=== PATIENT | female | born 1955 | race Caucasian/White ===

== ENCOUNTER 2021-06-29 09:06 | Outpatient (REF) | payer OTHER, SELFPAY ==
--- NOTE | ~2021-06-29 | US_ITS ---
EXAMINATION: US RETROPERITONEAL LIMITED (RENAL ONLY) CLINICAL INFORMATION: Calculus of kidney. COMPARISON: None. TECHNIQUE: Real-time imaging of the kidneys. FINDINGS: RIGHT KIDNEY: 11.1 x 5.1 x 5.9 cm (SAG x AP x TRV). The kidney is normal in size, contour, and echogenicity. Renal cortical thickness is normal. No calculi or focal parenchymal lesions. No hydronephrosis. Mid pole cyst with internal echoes measuring 2.1 x 1.2 x 2.1 cm, which may represent a complex cyst. LEFT KIDNEY: 11.5 x 5.6 x 5.2 cm (SAG x AP x TRV). The kidney is normal in size, contour, and echogenicity. Renal cortical thickness is normal. No calculi or focal parenchymal lesions. No hydronephrosis. Exophytic midpole cyst with internal echoes measuring 1.6 x 1.6 x 1.5 cm, which may represent a complex cyst. US/US renal BI IMPRESSION: Probable complex bilateral renal cysts measuring 2.1 cm on the right and 1.6 cm on the left. No hydronephrosis or nephrolithiasis.
== END 2021-06-29 09:07 | disposition home or self-care (01) ==
LOC: HO.US 09:06
PROVIDERS: PCP Internal Medicine
DX: N20.0 Calculus of kidney (principal)
CPT/HCPCS: 76775

== ENCOUNTER → 2021-08-24 08:35 | Outpatient (BNVA) | payer OTHER, SELFPAY | PROVIDERS: PCP Internal Medicine ==

== ENCOUNTER 2022-08-12 09:23 | Outpatient (REF) | payer MEDICARE, OTHER, SELFPAY ==
[2022-08-12 10:38] LABS: Blood Urea Nitrogen 19 mg/dL (9-16); Estimated Glomerular Filt Rate 59
== END 2022-08-12 09:24 | disposition home or self-care (01) ==
LOC: HO.LAB 09:23
PROVIDERS: PCP Internal Medicine; Visit Provider Urology
DX: N28.1 Cyst of kidney, acquired (principal)
CPT/HCPCS: 36415; 82565; 84520

== ENCOUNTER 2022-08-14 07:56 | Outpatient (REF) | payer MEDICARE, OTHER, SELFPAY ==
--- NOTE | ~2022-08-14 | CT_ITS ---
EXAMINATION: CT ABDOMEN WITHOUT AND WITH CONTRAST CLINICAL INFORMATION: Kidney cyst. COMPARISON: Renal ultrasound June 2021. TECHNIQUE: Contiguous axial thin section helical images of the abdomen were performed before and after the administration of oral contrast and 75 mL of Omnipaque 350 intravenous contrast. The data set was reformatted in the coronal and sagittal planes and reviewed on an independent workstation. This CT examination was performed using dose optimization techniques as appropriate, variously including the following: *Automated exposure control *Adjustment of mA and/or kV according to patient size (this includes techniques or standardized protocols for targeted exams where dose is matched to indication/reason for exam; i.e. extremities or head) *Use of iterative reconstruction technique DLP: 1062 mGy-cm. FINDINGS: LUNG BASES: Normal. LIVER, GALLBLADDER, AND BILIARY TREE: Normal. PANCREAS: Normal. SPLEEN: Normal. ADRENAL GLANDS AND KIDNEYS: There is a 1.4 x 1.9 cm cyst in the lower pole of the right kidney. Hounsfield units precontrast measure 5. Hounsfield units postcontrast measure 8 without evidence of appreciable enhancement. This is consistent with a simple Bosniak type I cyst. There is a 6 mm cyst in the lower pole of the right kidney. This is difficult to appreciate precontrast. Hounsfield units post-IV contrast measure 4 suggestive of a simple Bosniak type I cyst. There is a 8 mm cyst in the lower pole of the left kidney. This is not well appreciated precontrast. Hounsfield units postcontrast measure 6 also suggestive of a Bosniak type I simple cyst. The kidneys are otherwise normal. The adrenal glands are normal. BOWEL LOOPS: Normal. LYMPH NODES: There are no enlarged lymph nodes. There is shotty small bowel mesentery lymphadenopathy and mild increased attenuation of the mesenteric fat. No ascites. VASCULAR: Unremarkable. BONES: Degenerative disc disease at L2-L3. CT/CT abdomen wo/w IV con IMPRESSION: Bilateral renal simple cysts, two on the right and one on the left. Mild inflammatory changes in the small bowel mesentery with shotty small bowel mesentery lymphadenopathy and fat stranding. Fleischner guidelines were followed.
[2022-08-14] MEDS: iohexoL 350 MG/ML 75 ML INFUS..BTL IV (08:35)
== END 2022-08-14 07:57 | disposition home or self-care (01) ==
LOC: HO.CT 07:56
PROVIDERS: PCP Internal Medicine
DX: N28.1 Cyst of kidney, acquired (principal)
CPT/HCPCS: 74170; Q9967

== ENCOUNTER 2023-08-13 09:51 | Outpatient (REF) | payer MEDICARE, OTHER, SELFPAY ==
--- NOTE | ~2023-08-13 | US_ITS ---
EXAMINATION: US RETROPERITONEAL LIMITED (RENAL ONLY) CLINICAL INFORMATION: Cyst of kidney, acquired. COMPARISON: CT abdomen without and with contrast 08/14/2022. Ultrasound retroperitoneal limited (renal only) 06/29/2021. TECHNIQUE: Real-time imaging of the kidneys. Technically limited study secondary to body habitus. FINDINGS: RIGHT KIDNEY: 11.4 x 4.9 x 5.7 cm (SAG x AP x TRV). The kidney is normal in size, contour, and echogenicity. Renal cortical thickness is normal. No renal calculi or hydronephrosis. 2.1 cm simple cyst in the mid kidney. 1.1 cm simple cyst in the lower pole. No follow-up imaging is recommended. LEFT KIDNEY: 12.0 x 5.0 x 5.2 cm (SAG x AP x TRV). The kidney is normal in size, contour, and echogenicity. Renal cortical thickness is normal. No renal calculi or hydronephrosis. 0.8 cm simple cyst in the mid kidney. No follow-up imaging is recommended. US/US renal BI IMPRESSION: Stable bilateral benign renal cysts. No follow-up imaging is recommended.
== END 2023-08-13 09:52 | disposition home or self-care (01) ==
LOC: HO.HMGCX 09:51
PROVIDERS: PCP Internal Medicine; Visit Provider Urology
DX: N28.1 Cyst of kidney, acquired (principal)
CPT/HCPCS: 76775

== ENCOUNTER 2023-09-28 09:26 | Outpatient (AMB) | payer MEDICARE, OTHER, SELFPAY ==
--- NOTE | 2023-09-28 09:28 | MHC.OFFVIS ---
Intake Intake Visit Reasons: 1 yr kidney cysts follow up with US(set) Intake Note: Patient is present for ultrasound follow up renal cyst Urology Medications: none Blood Thinner: Xarelto Vendor Management Consultant Required: No Accompanied by: Self / Same As Patient Allergies No Known Allergies Allergy (Verified 09/28/23 21:23) Medication List - Last Reconciled 09/28/23 by AV Frazier carvedilol 25 mg PO BID estradiol 0.01%(0.1mg/gram) (Estrace) 1 g vaginal 3XW 30 days furosemide 20 mg PO DAILY rivaroxaban (Xarelto) 20 mg PO DAILY rosuvastatin 10 mg PO BEDTIME HPI HPI Comments History of Present Illness Details Poornima is a very pleasant 68-year-old female patient. She presents to the office for follow-up of her recurrent UTIs and renal cyst. In discussion with the patient today she reports to be doing and feeling well. Recent renal imaging results reviewed with the patient today. Right kidney with no calculi or hydronephrosis. 2.1 cm simple cyst in the mid kidney. 1.1 cm simple cyst in the lower pole. No follow-up imaging is recommended per radiology report. Left kidney with no calculi or hydronephrosis. 0.8 cm simple cyst in the mid kidney. No follow-up imaging is recommended per radiology report. She denies having had any UTIs or UTI like symptoms since her last office visit here. She does report urinary frequency and urgency with episodes of incontinence if not near a bathroom however she discusses these episodes to happen soon after taking her lasixs. She otherwise denies nocturia, hematuria, dysuria, foul smelling urine, changes to urinary stream, flank pain, fever, and or chills. She is happy with her current voiding parameters. In office urinalysis results reviewed with the patient today. [facility] Medical History (Updated 09/28/23 @ 21:39 by AV Frazier) Recurrent UTI Acute cystitis with hematuria Renal cyst, acquired Surgical History History of surgery Review of Systems Const All systems reviewed & are unremarkable except as noted in HPI and below Physical Exam Const General: cooperative, healthy appearing, comfortable, no acute distress, well developed, alert and awake Nutritional Appearance: overweight Orientation/consciousness: patient oriented x3 Limitations: no limitations HEENT Head: Yes normal to inspection, Yes normocephalic and Yes atraumatic Ears: hearing grossly normal bilaterally Eyes General: appearance normal, both eyes and all related structures Neck Neck: Yes normal visual inspection and Yes trachea midline Chest Chest palpation & inspection: normal inspection of the chest Resp Effort & Inspection: normal respiratory effort and able to speak in complete sentences Cardio Rate: regular rate GI Inspection: Yes normal to inspection General: Yes no CVA tenderness Back/Spine/Pelvis Back: no CVA tenderness Skin General skin exam: no rashes or lesions noted Neuro General: patient oriented x3 Extrem General: Yes normal to inspection Psych Appearance: grossly normal and well kempt Mental Status: mental status grossly normal Speech and movement: Normal speech and movement present and Clear speech present Affect: normal affect Attitude: cooperative Thought process: Normal thought process present Thought content: Normal thought content present Insight: Fair insight present (Psych) Judgement: Fair judgement present (Psych) Results AMB Urinalysis, Automated UA Leukoctes 0 Manuel/uL Last Edit by [employer] on 09/28/23 10:15 UA Nitrite Negative Last Edit by [employer] on 09/28/23 10:15 UA Urobilinogen 0.2 mg/dL Last Edit by [employer] on 09/28/23 10:15 UA Protein 0 mg/dL Last Edit by [employer] on 09/28/23 10:15 UA pH 6.0 Last Edit by [employer] on 09/28/23 10:15 UA Blood 0 Reagan/uL Last Edit by [employer] on 09/28/23 10:15 UA Specific [place] 1.010 Last Edit by [employer] on 09/28/23 10:15 UA Ketone Negative Last Edit by [employer] on 09/28/23 10:15 UA Bilirubin 0 mg/dL Last Edit by [employer] on 09/28/23 10:15 UA Glucose 0 mg/dL Last Edit by [employer] on 09/28/23 10:15 Results Reviewed Results Reviewed: Laboratory Last Values Urine pH (Auto) 6.0 09/28/23 10:12 Specific [place] (Auto) 1.010 09/28/23 10:12 Urine Protein (Auto) 0 mg/dL 09/28/23 10:12 Glucose (UA)(Auto) 0 mg/dL 09/28/23 10:12 Urine Ketones (Auto) Negative 09/28/23 10:12 Urine Blood (Auto) 0 Reagan/uL 09/28/23 10:12 Urine Nitrite (Auto) Negative 09/28/23 10:12 Urine Bilirubin (Auto) 0 mg/dL 09/28/23 10:12 Urine Urobilinogen (Auto) 0.2 mg/dL 09/28/23 10:12 Leukocyte Esterase (Auto) 0 Manuel/uL 09/28/23 10:12 Date of Service: 08/13/23 EXAMINATION: US RETROPERITONEAL LIMITED (RENAL ONLY) FINDINGS: RIGHT KIDNEY: 11.4 x 4.9 x 5.7 cm (SAG x AP x TRV). The kidney is normal in size, contour, and echogenicity. Renal cortical thickness is normal. No renal calculi or hydronephrosis. 2.1 cm simple cyst in the mid kidney. 1.1 cm simple cyst in the lower pole. No follow-up imaging is recommended. LEFT KIDNEY: 12.0 x 5.0 x 5.2 cm (SAG x AP x TRV). The kidney is normal in size, contour, and echogenicity. Renal cortical thickness is normal. No renal calculi or hydronephrosis. 0.8 cm simple cyst in the mid kidney. No follow-up imaging is recommended. IMPRESSION: Stable bilateral benign renal cysts. No follow-up imaging is recommended. Assessment & Plan Assessment & Plan (1) Renal cyst, acquired: Code(s): N28.1 - Cyst of kidney, acquired (2) Recurrent UTI: Code(s): N39.0 - Urinary tract infection, site not specified Plan In office urinalysis results reviewed with the patient today; as noted above. Recent renal imaging results reviewed with the patient today; as noted above. Patient denies any bothersome urinary issues at this time. Patient reports be happy with current voiding parameters. Discussed at length pelvic floor therapy exercises as well as vaginal weights; information provided. Start Estrace cream as discussed and prescribed. Discussed, stress, and encouraged on the importance of drinking plenty of water daily. Renal ultrasound in 1 year. Follow-up in 1 year with imaging to be completed prior; or sooner with any issues, concerns, and or questions. Orders: Orders AMB Urinalysis Automated Today Z13.9 - Encounter for screening, unspecified US renal BI 364 Days N28.1 - Cyst of kidney, acquired Medications: New estradiol 0.01%(0.1mg/gram) (Estrace) 1 g vaginal 3XW 30 days 42.5 grams 3RF Patient Instructions: The patient had an opportunity to ask questions regarding the treatment plan. All questions were answered. Physical exam, labs, and imaging were discussed and reviewed in detail. As well as risks, benefits, and discussion of treatment choices. No major barriers to understanding were identified. The patient expressed understanding and agreement with the above treatment plan. The patient was made aware they should contact our office by phone for worsening of their current condition, the appearance of new symptoms, or with any questions or concerns. Compliance is encouraged with any medications and follow up testing that is ordered. It is a privilege to be allowed the opportunity to participate in? your urological care.? Again, if you have any questions or concerns If you have any questions or concerns please do not hesitate to contact me. The office is [phone]. This note is constructed using voice recognition software. While every effort has been made to ensure accuracy lap cutter truer operator errors may have been included. Yours sincerely, AV Frazier Coding Level of Care Code Est Pt Level 4 (01593) Diagnoses Renal cyst, acquired N28.1 Recurrent UTI N39.0
== END 2023-09-28 10:50 | disposition home or self-care (01) ==
PROVIDERS: Visit Provider Nurse Practitioner Family
DX: N28.1 Cyst of kidney, acquired (principal); N39.0 Urinary tract infection, site not specified
CPT/HCPCS: 99214

== ENCOUNTER → 2023-09-28 09:26 | Outpatient (BNVA) | payer MEDICARE, OTHER, SELFPAY | PROVIDERS: Visit Provider Nurse Practitioner Family | DX: N28.1 Cyst of kidney, acquired (principal); N39.0 Urinary tract infection, site not specified | CPT/HCPCS: 81003; 99212 ==

== ENCOUNTER 2024-09-15 08:53 | Outpatient (REF) | payer MEDICARE, OTHER, SELFPAY ==
--- NOTE | ~2024-09-15 | US_ITS ---
EXAMINATION: US RETROPERITONEAL LIMITED (RENAL ONLY) CLINICAL INFORMATION: Cyst of kidney, acquired. COMPARISON: Ultrasound renal ON 08/13/2023 and 06/29/2021. Correlated to CT abdomen 08/14/2022. TECHNIQUE: Real-time imaging of the kidneys using grayscale and color Doppler technique. FINDINGS: Submitted for interpretation on October 23, 2024. RIGHT KIDNEY: 11 x 5 x 5 cm (SAG x AP x TRV). Volume is 145 cc. The kidney is normal in size, contour, and echogenicity. Renal cortical thickness is normal. No renal calculi or hydronephrosis. There is a 1 cm and a 2 cm hypoechoic lesions in the midportion and lower pole without flow on color Doppler interrogation. There is flow on color Doppler interrogation of the renal hilum with an extrarenal pelvis. LEFT KIDNEY: 12 x 5 x 5 cm (SAG x AP x TRV). Volume is 149 cc. The kidney is normal in size, contour, and echogenicity. Renal cortical thickness is normal. No renal calculi or hydronephrosis. There is a 0.6 cm anechoic lesion with a focal hyperechoic area in the lower pole without flow on color Doppler interrogation. There is flow on color Doppler interrogation of the renal hilum IMPRESSION: No hydronephrosis. Hypoechoic lesions in the right kidney no fully evaluated. Partially calcified cystic lesion, left kidney. Please refer to the previous CT dated August 14, 2022.. Electronically signed by: Luis Pollard MD 10/23/2024 12:27 PM [facility]
== END 2024-09-15 08:54 | disposition home or self-care (01) ==
LOC: HO.US 08:53
PROVIDERS: PCP Internal Medicine; Visit Provider Nurse Practitioner Family
DX: N28.1 Cyst of kidney, acquired (principal)
CPT/HCPCS: 76775

== ENCOUNTER → 2024-09-15 08:55 | Outpatient (BNV) | payer MEDICARE, OTHER, SELFPAY | PROVIDERS: PCP Internal Medicine; Visit Provider Radiology Diagnostic Radiology | DX: N28.1 Cyst of kidney, acquired (principal) | CPT/HCPCS: 76775 ==

== ENCOUNTER 2024-09-29 08:30 | Outpatient (AMB) | payer MEDICARE, OTHER, SELFPAY ==
--- NOTE | 2024-09-29 08:36 | A.OFFVIS_ITS ---
Intake Visit Reasons: 1y/US(set) Intake Note: Patient presents today for follow up on renal cyst and ultrasound results Imaging completed: 09/15/24 Urology Medications: none Blood Thinner: Xarelto Engineer Station Mainline Required: No Accompanied by: Self / Same As Patient Allergies No Known Allergies Allergy (Verified 09/29/24 21:40) Medication List - Last Reconciled 09/29/24 by AV Frazier albuterol sulfate 90 mcg/actuation inhalation carvedilol 25 mg PO BID estradiol 0.01%(0.1mg/gram) (Estrace) 1 g vaginal 3XW 90 days fluticasone furoate 100 mcg/actuation (Arnuity Ellipta) 1 inh inhalation DAILY furosemide 20 mg PO DAILY rivaroxaban (Xarelto) 20 mg PO DAILY rosuvastatin 10 mg PO BEDTIME HPI Comments Details: Poornima is a very pleasant 69-year-old female patient. She presents to the office for follow-up of her recurrent UTIs and renal cyst. In discussion with the patient today she reports to be doing and feeling well. Recent renal imaging results reviewed with the patient today. Bilateral kidneys are normal in size, contour, and echogenicity. No hydronephrosis, lesions, or calculi noted bilaterally. Partially calcified cystic lesion of the left kidney measuring 6 mm. When compared to previous CT imaging 05/03 bilateral renal simple cyst 2 on the right and 1 on the left. She denies having had any UTI like sympto ms and or UTI since her last office visit here. She does report noting episodes of urinary urgency and frequency typically in the morning and believes this is related to her Lasixs. She does report urinary frequency and urgency with episodes of incontinence if not near a bathroom however she discusses these episodes to happen soon after taking her lasixs. We discussed further treatment options to include pelvic floor therapy verses in office urodynamics for further assessment evaluation. She otherwise denies nocturia, hematuria, dysuria, foul smelling urine, changes to urinary stream, flank pain, fever, and or chills. She is happy with her current voiding parameters. She reports at times she is noncompliant with Estrace cream however is enquiring a refill. In office urinalysis results reviewed with the patient today. She otherwise offers no other issues or concerns at this time. [facility] Medical History Recurrent UTI Acute cystitis with hematuria Renal cyst, acquired Surgical History History of surgery Review of Systems Const All systems reviewed & are unremarkable except as noted in HPI and below Physical Exam Const General: cooperative, healthy appearing, comfortable, no acute distress, well developed, alert and awake Nutritional Appearance: overweight Orientation/consciousness: patient oriented x3 Limitations: no limitations HEENT Head: Yes normal to inspection, Yes normocephalic and Yes atraumatic Ears: hearing grossly normal bilaterally Eyes General: appearance normal, both eyes and all related structures Neck Neck: Yes normal visual inspection and Yes trachea midline Chest Chest palpation & inspection: normal inspection of the chest Resp Effort & Inspection: normal respiratory effort and able to speak in complete sentences Cardio Rate: regular rate GI Inspection: Yes normal to inspection General: Yes no CVA tenderness Back/Spine/Pelvis Back: no CVA tenderness Skin General skin exam: no rashes or lesions noted Neuro General: patient oriented x3 Extrem General: Yes normal to inspection Psych Appearance: grossly normal and well kempt Mental Status: mental status grossly normal Speech and movement: Normal speech and movement present and Clear speech present Affect: normal affect Attitude: cooperative Thought process: Normal thought process present Thought content: Normal thought content present Insight: Fair insight present (Psych) Judgement: Fair judgement present (Psych) Results AMB Urinalysis, Automated UA Leukoctes Cancelled Manuel/uL Last Edit by Albertina Castorena on 09/29/24 10:26 UA Leukoctes previously reported as 0 Albertina Castorena 09/29/24 10:26 UA Nitrite Cancelled Last Edit by Albertina Castorena on 09/29/24 10:26 UA Urobilinogen Cancelled mg/dL Last Edit by Albertina Castorena on 09/29/24 10:2 6 UA Urobilinogen previously reported as 0.2 BrandNostoe Bre 09/29/24 10:26 UA Protein Cancelled mg/dL Last Edit by Lae Naralavon on 09/29/24 10:26 UA Protein previously reported as 0 Fitmoyce Bress 09/29/24 10:26 UA pH Cancelled Last Edit by Lae Naralavon on 09/29/24 10:26 UA pH previously reported as 6.0 AdStacke Bre 09/29/24 10:26 UA Blood Cancelled Reagan/uL Last Edit by Fitmomorenojaney Bainslavon on 09/29/24 10:26 UA Blood previously reported as 0 AdStacke Bre 09/29/24 10:26 UA Specific [place] Cancelled Last Edit by Fitmoshalonda Naralavon on 09/29/24 10:26 UA Specific [place] previously reported as 1.010 AdStacke oohilove 09/29/24 10:26 UA Ketone Cancelled Last Edit by Fitmoshalonda Naralavon on 09/29/24 10:26 UA Ketone previously reported as Negative AdStacke oohilove 09/29/24 10:26 UA Bilirubin Cancelled mg/dL Last Edit by Fitmoshalonda Naralavon on 09/29/24 10:26 UA Bilirubin previously reported as 0 AdStacke oohilove 09/29/24 10:26 UA Glucose Cancelled mg/dL Last Edit by AdStackjaney Naralavon on 09/29/24 10:26 UA Glucose previously reported as 0 AdStacke BreLogicLibrary 09/29/24 10:26 CANCELLED duplicate AMB Urinalysis, Automated UA Leukoctes 0 Manuel/uL Last Edit by Albertina Castorena on 09/29/24 09:27 UA Nitrite Last Edit by AdStackjaney Bainslavon on 09/29/24 09:27 UA Urobilinogen 0.2 mg/dL Last Edit by AdStacke Naralavon on 09/29/24 09:27 UA Protein 0 mg/dL Last Edit by AdStackjaney Bainslavon on 09/29/24 09:27 UA pH 6.0 Last Edit by Lajaney Bainslavon on 09/29/24 09:27 UA Blood 0 Reagan/uL Last Edit by AdStackjaney Castorena on 09/29/24 09:27 UA Specific [place] 1.010 Last Edit by Albertina Castorena on 09/29/24 09:27 UA Ketone Last Edit by Albertina Castorena on 09/29/24 09:27 UA Bilirubin 0 mg/dL Last Edit by Albertina Castorena on 09/29/24 09:27 UA Glucose 0 mg/dL Last Edit by Albertina Castorena on 09/29/24 09:27 Results Reviewed Results Reviewed: Laboratory Last Values Urine pH (Auto) 6.0 09/29/24 09:26 Specific [place] (Auto) 1.010 09/29/24 09:26 Urine Protein (Auto) 0 mg/dL 09/29/24 09:26 Glucose (UA)(Auto) 0 mg/dL 09/29/24 09:26 Urine Ketones (Auto) Cancelled 09/29/24 08:44 Urine Blood (Auto) 0 Reagan/uL 09/29/24 09:26 Urine Nitrite (Auto) Cancelled 09/29/24 08:44 Urine Bilirubin (Auto) 0 mg/dL 09/29/24 09:26 Urine Urobilinogen (Auto) 0.2 mg/dL 09/29/24 09:26 Leukocyte Esterase (Auto) 0 Manuel/uL 09/29/24 09:26 Date of Service: 09/15/24 EXAMINATION: US RETROPERITONEAL LIMITED (RENAL ONLY) FINDINGS: RIGHT KIDNEY: 11 x 5 x 5 cm (SAG x AP x TRV). Volume is 145 cc. The kidney is normal in size, contour, and echogenicity. Renal cortical thickness is normal. No renal calculi or hydronephrosis. There is a 1 cm and a 2 cm hypoechoic lesions in the midportion and lower pole without flow on color Doppler interrogation. There is flow on color Doppler interrogation of the renal hilum with an extrarenal pelvis. LEFT KIDNEY: 12 x 5 x 5 cm (SAG x AP x TRV). Volume is 149 cc. The kidney is normal in size, contour, and echogenicity. Renal cortical thickness is normal. No renal calculi or hydronephrosis. There is a 0.6 cm anechoic lesion with a focal hyperechoic area in the lower pole without flow on color Doppler interrogation. There is flow on color Doppler interrogation of the renal hilum IMPRESSION: No hydronephrosis. Hypoechoic lesions in the right kidney no fully evaluated. Partially calcified cystic lesion, left kidney. Please refer to the previous CT dated August 14, 2022. Assessment & Plan Assessment & Plan (1) Recurrent UTI: Code(s): N39.0 - Urinary tract infection, site not specified Category: Medical (2) Renal cyst, acquired: Code(s): N28.1 - Cyst of kidney, acquired Category: Medical Plan In office urinalysis results reviewed with the patient today; as noted above. Recent renal imaging results reviewed with the patient today; as noted above. Patient denies any bothersome urinary issues at this time. Patient reports be happy with current voiding parameters. Discussed at length pelvic floor therapy exercises as well as vaginal weights; information provided. Start/continue Estrace cream as discussed and prescribed; refill provided Discussed, stress, and encouraged on the importance of drinking plenty of water daily. Renal ultrasound in 1 year. Follow-up in 1 year with imaging to be completed prior; or sooner with any issues, concerns, and or questions. Orders: Orders AMB Urinalysis Automated 09/29/24 Z13.9 - Encounter for screening, unspecified US renal BI 1 Year N20.0 - Calculus of kidney Medications: Changed From estradiol 0.01%(0.1mg/gram) 1 g vaginal 3XW 30 days 42.5 grams 3RF To estradiol 0.01%(0.1mg/gram) (Estrace) Apply pea-sized amount to urethra 3 times per week 1 g vaginal 3XW 42.5 grams 3RF 90 days Patient Instructions: The patient had an opportunity to ask questions regarding the treatment plan. All questions were answered. Physical exam, labs, and imaging were discussed and reviewed in detail. As well as risks, benefits, and discussion of treatment choices. No major barriers to understanding were identified. The patient expressed understanding and agreement with the above treatment plan. The patient was made aware they should contact our office by phone for worsening of their current condition, the appearance of new symptoms, or with any questions or concerns. Compliance is encouraged with any medications and follow up testing that is ordered. It is a privilege to be allowed the opportunity to participate in? your urological care.? Again, if you have any questions or concerns If you have any questions or concerns please do not hesitate to contact me. The office is [phone]. This note is constructed using voice recognition software. While every effort has been made to ensure accuracy director of rotc errors may have been included. Yours sincerely, Autumn Schneider, HOME HOSPICE AIDE-BC Coding Level of Care Code Est Pt Level 3 (49624) Complex EM visit Add On G2211 Diagnoses Recurrent UTI N39.0 Renal cyst, acquired N28.1
== END 2024-09-29 09:10 | disposition home or self-care (01) ==
PROVIDERS: PCP Internal Medicine; Visit Provider Nurse Practitioner Family
DX: N39.0 Urinary tract infection, site not specified (principal); N28.1 Cyst of kidney, acquired
CPT/HCPCS: 99213; G2211

== ENCOUNTER → 2024-09-29 08:30 | Outpatient (BNVA) | payer MEDICARE, OTHER, SELFPAY | PROVIDERS: PCP Internal Medicine; Visit Provider Nurse Practitioner Family | DX: N28.1 Cyst of kidney, acquired (principal); N39.0 Urinary tract infection, site not specified; N20.0 Calculus of kidney | CPT/HCPCS: 81003; 99212 ==

== ENCOUNTER 2025-09-15 09:18 | Outpatient (REF) | payer MEDICARE, OTHER, SELFPAY ==
--- OUTSIDE RECORDS SUMMARY | 2025-08-23 15:37 | XMS_ITS ---
Author Organization [facility] Address [address], [place] [id number] Care Team Providers Care Care Coordination Manager Name Role Phone ROSETTA MCCALL Primary Care Provider REASON FOR VISIT hearing loss Encounters Encounter Location Date Provider Diagnosis [facility] [address] [place] [address] 08/23/2025 ROSETTA MCCALL PLAN OF TREATMENT Next Appt Details Provider Name:ROSETTA BRAMBILA, 03/09/2026 02:30:00 PM, [address] [place], [address],
--- OUTSIDE RECORDS SUMMARY | 2025-08-24 07:30 | XMS_ITS ---
Author Organization [facility] Address [address] [place], [place] [id number] Care Team Providers Care Internet Technology Manager Name Role Phone ROSETTA MCCALL Primary Care Provider [phone] ALLERGIES Allergen (clinical drug ingredient) Drug/Non Drug Allergy documented on EMR Reaction Allergy Type Onset Date Status CATS, TREES (uncoded) Unknown Allergy Active REASON FOR REFERRAL Reason 08/25/25 w appt Refe rral to [facility] of [facility] acute right-sided hearing loss Diagnosis 1 Unspecified hearing loss (H91.90) Referral Organization [facility] Referring Provider First Name ROSETTA Referring Provider Last Name STEFANY Referring Provider Speciality Internal M edicine Referred Organization [facility] (1) Referred Address [address], [place],[address], Referred Provider Specialty Otology, Lar yngology, Rhinology General Notes Anna HUNT Admin 12:03:42 PM > faxed medical referral, note and most recent labs to [facility] at [phone] requesting an URGENT visit please>no referral required Referral Priority Urgent REASON FOR VISIT 42/severe hearing loss MEDICATIONS Medication SIG (Take, Route, Frequency, Duration) Notes Start Date End Date Status Eliquis 5 MG 1 tablet Orally Twic e a day for 30 day(s) Active Albuterol Sulfate HFA 108 (90 Base) MCG/ACT 1 puff as needed Inhalation every 4 hrs Active Therapeutic Multivit/Mineral - 1 tab(s) orally once daily-Maintnenence for 30 day(s) Active Rosuvastatin Calcium 10 MG TAKE 1 TABLET BY MOUTH EVERY DAY for 90 Active Arnuity Ellipta 100 MCG/ACT 1 puff Inhal ation Once a day Active Fluticasone Propionate 50 MCG/ACT 1 spray in each nostril Nasally Twice a day for 30 days Active Furosemide 20 MG TAKE 1 TABLET BY DENVER TH DAILY NEEDED FOR SWELLING for 90 Active Amoxicillin 500 MG 4 capsule Orally one hour before procedure for 1 days 04/21/2025 Active Carvedilol 25 MG 1 tablet with food O rally Twice a day Active SOCIAL HISTORY Tobacco Use: Social History Observation Description Date Details (start date - stop date) Never Smoker NA - NA Sex Assigned At : Social History Observation Description Sex Assigned At Unknown Smoking Question Answer Notes Are you a: never smoker PROBLEMS Problem Type ICD Code Onset Dates Problem Status W/U Status Risk SNOMED Code Notes Problem Unspecified hearing loss (H91.90) Active confirmed 79328961 VITAL SIGNS Blood pressure systolic 126 mm Hg 08/24/20 25 Blood pressure diastolic 89 mm Hg 025 Height 64 in 08/24/2025 Weight 290 lbs 08/24/2025 BMI 49.77 kg/m2 08/24/2025 Encounters Encounter Location Date Provider Diagnosis [facility] [address] [place] [address] 08/24/2025 ROSETTA MCCALL Unspecified hearing loss H91.90 ; Essential (primary) hypertension I10 ; Disorder of lipoprotein metabolism, unspecified E78.9 ; Type 2 diabetes mellitus without complications E11.9 ; Gastro-esophageal reflux disease without esophagitis K21.9 ; Atrial fibrillation, unspecified type I48.91 and Other asthma J45.998 ASSESSMENTS Encounter Date Diagnosis Assessment Notes Treatment Notes Treatment Clinical Notes Section Notes 08/24/2025 Unspecified hearing loss (ICD-10 - H91.90) Physical exam symptoms will check a CT scan with attention to the internal auditory canal. Will check a CBC with a differential Lyme titer sed rate etc. Consultation ear nose and throat. Add prednisone 40 mg a day for 5 days and a Z-Omar. 08/24/2025 Essential (primary) hypertension (ICD-10 - I10) Recheck blood pressure stable mildly elevated will follow-up 2 weeks recommend weight loss exercise no added salt diet 08/24/2025 Disorder of lipoprotein metabolism, unspecified (ICD-10 - E78.9) Stable recheck every 6 months diet exercise weight loss recommended 08/24/2025 Type 2 diabetes mellitus without complications (ICD-10 - E11.9) Check A1c diet weight loss exercise question Rigoberto will discuss at next visit 08/24/2025 Gastro-esophageal reflux disease without esophagitis (ICD-10 - K21.9) Stable dietary recommendations discussed head of bed elevation as needed PPI 08/24/2025 Atrial fibrillation, unspecified type (ICD-10 - I48.91) Follow-up with [facility] cardiology in normal sinus rhythm at the present time Watchman procedure has been discussed she is thinking about it 08/24/2025 Other asthma (ICD-10 - J45.998) PLAN OF TREATMENT Treatment Notes Assessment Notes Unspecified hearing loss Physical exam s ymptoms will check a CT scan with attention to the internal auditory canal. Will check a CBC with a differential Lyme titer sed rate etc. Consultation ear nose and throat. Add prednisone 40 mg a day for 5 days and a Z-Omar. Essential (primary) hypertension Recheck blood pressure stable mildly elevated will follow-up 2 weeks recommend weight loss exercise no added salt diet Disorder of lipoprotein meta bolism, unspecified Stable recheck every 6 months diet exerc ise weight loss recommended Type 2 diabetes mellitus wit hout complications Check A1c diet weight loss exercise question Rigoberto will discuss at next visit Gastro-esophageal reflux dis ease without esophagitis Stable dietary recommendations discussed head of bed elevation as needed PPI Atrial fibrillation, unspecified type Fo llow-up with [facility] in normal sinus rhythm at the present time Watchman procedure has been discussed she is thinking about it Pending Test Test Name Order Date CT Head (Brain) without IV contrast 08/12 Referrals Referral Date Details 08/25/25 w appt Refe rral to [facility] acute right-sided hearing loss, [address], [place], [address], Next Appt Details Follow Up: Keep scheduled OB follow-up. Labs pending, Reason: Provider Name:ROSETTA BRAMBILA, 03/09/2026 02:30:00 PM, [address] [place], [address], Progress Notes * Examination Category Sub-Category Detail Notes Category Not es General Examination HEENT: Conjunctiva pink anicteric mucous membranes moist oropharynx clear EACs are clear TMs are clear sinuses clear Jacob negative hearing diminished on right side to whispered sounds Neck: supple, no lymphaden opathy, no thyromegaly, no carotid bruit Heart: RRR, no murmurs, cli cks or rubs Lungs: clear to auscultatio n General Appearance Pleasant white femal e appearing stated age moderately overweight no apparent distress History and Physical Notes * HPI (History of Present Illness) Category Sub-Category Detail Notes Category Not es General Hearing loss. S ymptoms started approximate 48 hours ago right ear. Awoke with pretty significant tinnitus. No significant pain per se. Nothing on the left side. No fever chills or sweats she has been battling cold over the last month. No shortness of breath no significant chest pain some mild congestion with phlegm. No sinus pain no visual changes etc. little bit of tinnitus. She woke up this morning it seemed to be improving a little bit was wondering whether she had a another viral infection Consultation Request Notes Referral Date Referring Provider Referred Provider Not es 08/24/2025 ROSETTA MCCALL , 08/25/25 w a ppt Referral to [facility] of [facility] acute right-sided hearing loss
--- OUTSIDE RECORDS SUMMARY | 2025-08-24 08:52 | XMS_ITS ---
Author Organization [facility] Address [address] [place], [place] [id number] Care Team Providers Care Help Desk Associate Name Role Phone ROSETTA MCCALL Primary Care Provider REASON FOR VISIT New Referral Request Encounters Encounter Location Date Provider Diagnosis [facility] [address] [place] [address] 08/24/2025 ROSETTA MCCALL PLAN OF TREATMENT Next Appt Details Provider Name:ROSETTA BRAMBILA, 03/09/2026 02:30:00 PM, [address] [place], [address],
--- OUTSIDE RECORDS SUMMARY | 2025-08-24 08:59 | XMS_ITS ---
Author Organization [facility] Address [address] [place], [place] [id number] Care Team Providers Care Head Bellhop Captain Name Role Phone ROSETTA MCCALL Primary Care Provider [phone] REASON FOR VISIT antibiotics MEDICATIONS Medication SIG (Take, Route, Fr equency, Duration) Notes Start Date End Date Status Zithromax Z-Omar 250 MG Therapy Pack Oral ly 2 tabs Day 1, then 1 tab daily x 4 days for 5 days 08/24/2025 Active predniSONE 10 MG 4 tablets Orally Onc e a day for 2 days, then 3 tabs once a day for 2 days, then 2 tabs once a day for 2 days, then 1 tab once a day for 2 days for 5 day(s) 08/24/2025 Active Encounters Encounter Location Date Provider Diagnosis [address] [address] 08/24/2025 ROSETTA MCCALL PLAN OF TREATMENT Medication Medication Name Sig Start Date Stop Date Notes Zithromax Z-Omar 250 MG Therapy Pack Oral ly 2 tabs Day 1, then 1 tab daily x 4 days for 5 days 08/24/2025 predniSONE 10 MG 4 tablets Orally Onc e a day for 2 days, then 3 tabs once a day for 2 days, then 2 tabs once a day for 2 days, then 1 tab once a day for 2 days for 5 day(s) 08/24/2025 Next Appt Details Provider Name:ROSETTA BRAMBILA, 03/09/2026 02:30:00 PM, [address] [place], [address],
--- OUTSIDE RECORDS SUMMARY | 2025-08-25 10:42 | XMS_ITS ---
Author Organization [facility] Address [address] [place], [place] [id number] Care Team Providers Care Senior Net Software Developer Name Role Phone ROSETTA MCCALL Primary Care Provider REASON FOR VISIT fax new Head CT order Encounters Encounter Location Date Provider Diagnosis [facility] [address] [place] [address] 08/25/2025 ROSETTA MCCALL PLAN OF TREATMENT Next Appt Details Provider Name:ROSETTA BRAMBILA, 03/09/2026 02:30:00 PM, [address] [place], [address],
--- OUTSIDE RECORDS SUMMARY | 2025-08-26 03:10 | XMS_ITS ---
Author Organization [facility] Address [address] [place], [place] [id number] Care Team Providers Care Pain Management Nurse Practitioner Name Role Phone ROSETTA MCCALL Primary Care Provider RESULTS Component Value Reference Range Notes CT Temporal Bones without co ntrast, Bilateral Reviewed date:08/28/2025 03:46:06 PM Interpretation: Performing Lab: Notes/Report: REASON FOR VISIT CT order RICKY Encounters Encounter Location Date Provider Diagnosis [address] [address] 08/26/2025 ROSETTA MCCALL Hearing loss, unspecified hearing loss type, unspecified laterality H91.90 ASSESSMENTS Encounter Date Diagnosis Assessment Notes Treatment Notes Treatment Clinical Notes Section Notes 08/26/2025 Hearing loss, unspecified hearing loss type, unspecified laterality (ICD-10 - H91.90) PLAN OF TREATMENT Next Appt Details Provider Name:ROSETTA BRAMBILA, 03/09/2026 02:30:00 PM, [address] [place] [address], [address],
--- OUTSIDE RECORDS SUMMARY | 2025-08-28 10:45 | XMS_ITS ---
Author Organization [facility] Address [address] [place], [place] [phone] Care Team Providers Care Bookkeeping Manager Name Role Phone ROSETTA MCCALL Primary Care Provider REASON FOR VISIT cat scan Encounters Encounter Location Date Provider Diagnosis [facility] [address] [place] [address] 08/28/2025 ROSETTA MCCALL PLAN OF TREATMENT Next Appt Details Provider Name:ROSETTA BRAMBILA, 03/09/2026 02:30:00 PM, [address] [place], [address],
--- OUTSIDE RECORDS SUMMARY | 2025-09-08 03:00 | XMS_ITS ---
Author Organization [facility] Address [address] [place], [place] [id number] Care Team Providers Care Logistics Coordinator Name Role Phone ROSETTA MCCALL Primary Care Provider [phone] ALLERGIES Allergen (clinical drug ingredient) Drug/Non Drug Allergy documented on EMR Reaction Allergy Type Onset Date Status CATS, TREES (uncoded) Unknown Allergy Active REASON FOR REFERRAL Reason [facility] hearing loss Diagnosis 1 Hearing loss, unspec ified hearing loss type, unspecified laterality (H91.90) Referral Organization [facility] Referring Provider First Name ROSETTA Referring Provider Last Name STEFANY Referring Provider Speciality Internal M edicine Referral Priority Routine REASON FOR VISIT 42 6mo F/U, would like flu vaccine MEDICATIONS Medication SIG (Take, Route, Frequency, Duration) Notes Start Date End Date Status Fluticasone Propionate 50 MCG/ACT 1 spray in each nostril Nasally Twice a day for 30 days Active Rosuvastatin Calcium 10 MG TAKE 1 TABLET BY MOUTH EVERY DAY for 90 Active Carvedilol 25 MG 1 tablet with food O rally Twice a day Active Albuterol Sulfate HFA 108 (90 Base) MCG/ACT 1 puff as needed Inhalation every 4 hrs Active Eliquis 5 MG 1 tablet Orally Tw a day for 30 day(s) Active Furosemide 20 MG TAKE 1 TABLET BY DEN[place] TH DAILY NEEDED FOR SWELLING for 90 Active Amoxicillin 500 MG 4 capsule Orally one hour before procedure for 1 days 04/21/2025 Active Therapeutic Multivit/Mineral - 1 tab(s) orally once daily-Maintnenence for 30 day(s) Active Arnuity Ellipta 100 MCG/ACT 1 puff Inhal ation Once a day Active SOCIAL HISTORY Tobacco Use: Social History Observation Description Date Details (start date - stop date) Never Smoker NA - NA Sex Assigned At : Social History Observation Description Sex Assigned At Unknown Smoking Question Answer Notes Are you a: never smoker PROBLEMS Problem Type ICD Code Onset Dates Problem Status W/U Status Risk SNOMED Code Notes Problem Sleep apnea (G47.30) Active confirmed Sleep apnea (95522749) VITAL SIGNS Blood pressure systolic 130 mm Hg 09/08/20 25 Blood pressure diastolic 85 mm Hg 025 Height 64 in 09/08/2025 Weight 292 lbs 09/08/2025 BMI 50.12 kg/m2 09/08/2025 Encounters Encounter Location Date Provider Diagnosis [facility] [address] [place] [address] 09/08/2025 ROSETTA MCCALL Essential (primary) hypertension I10 ; Disorder of lipoprotein metabolism, unspecified E78.9 ; Type 2 diabetes mellitus without complications E11.9 ; Gastro-esophageal reflux disease without esophagitis K21.9 ; Other asthma J45.998 ; Atrial fibrillation, unspecified type I48.91 ; Osteoporosis, unspecified osteoporosis type, unspecified pathological fracture presence M81.0 ; Aortic valve stenosis, etiology of cardiac valve disease unspecified I35.0 ; Sleep apnea 786.09 and Hearing loss, unspecified hearing loss type, unspecified laterality H91.90 ASSESSMENTS Encounter Date Diagnosis Assessment Notes Treatment Notes Treatment Clinical Notes Section Notes 09/08/2025 Essential (primary) hypertension (ICD-10 - I10) Blood pressure suboptimal control. Discussed with patient about adding a medicine like losartan or amlodipine. She would prefer to hold off on another med at this time. Told her that she needs to check her pressure at least twice a day over the next 2 weeks and get me back to results and I can decide whether based on that she needs to get a 24 blood pressure monitor or add this another medication 09/08/2025 Disorder of lipoprotein metabolism, unspecified (ICD-10 - E78.9) Continue statin therapy review of systems negative side effects increase diet increase weight loss exercise daily. Recheck in 6 months total cholesterol goals and 100 LDL less than 100 09/08/2025 Type 2 diabetes mellitus without complications (ICD-10 - E11.9) Patient with prediabetes. Follow-up A1c every 3 to 4 months ophthalmology q. year diet exercise weight maintenance hopefully will be getting GLP-1 for weight and prediabetes 09/08/2025 Gastro-esophageal reflux disease without esophagitis (ICD-10 - K21.9) Stable doing well dietary recommendations including minimizing alcohol caffeine peppermint spearmint chocolate citrus etc. 09/08/2025 Other asthma (ICD-10 - J45.998) Physical exam normal continue inhalers. Follow-up with pulmonary 09/08/2025 Atrial fibrillation, unspecified type (ICD-10 - I48.91) No symptoms. EKG sinus bradycardia declines Watchman procedure heart rate stable no CHF no chest pain 09/08/2025 Osteoporosis, unspecified osteoporosis type, unspecified pathological fracture presence (ICD-10 - M81.0) Calcium and vitamin D twice daily weightbearing exercise alcohol moderation of smoking she recheck bone density in 2 years 09/08/2025 Aortic valve stenosis, etiology of cardiac valve disease unspecified (ICD-10 - I35.0) Aortic stenosis recheck echo in 1 year instructed to call if any chest pain shortness of breath presyncope dizziness etc. 09/08/2025 Sleep apnea (ICD9-CM - 786.09) Patient on CPAP continue doing well 09/08/2025 Hearing loss, unspecified hearing loss type, unspecified laterality (ICD-10 - H91.90) Recommend ENT evaluation. Referral has already been placed patient did not hear back from them PLAN OF TREATMENT Treatment Notes Assessment Notes Essential (primary) hypertension Blood p ressure suboptimal control. Discussed with patient about adding a medicine like losartan or amlodipine. She would prefer to hold off on another med at this time. Told her that she needs to check her pressure at least twice a day over the next 2 weeks and get me back to results and I can decide whether based on that she needs to get a 24 blood pressure monitor or add this another medication Disorder of lipoprotein meta bolism, unspecified Continue statin therapy review of system s negative side effects increase diet increase weight loss exercise daily. Recheck in 6 months total cholesterol goals and 100 LDL less than 100 Type 2 diabetes mellitus wit hout complications Patient with prediabetes. Follow-up A1c every 3 to 4 months ophthalmology q. year diet exercise weight maintenance hopefully will be getting GLP-1 for weight and prediabetes Gastro-esophageal reflux dis ease without esophagitis Stable doing well dietary recommendation s including minimizing alcohol caffeine peppermint spearmint chocolate citrus etc. Other asthma Physical exam normal continue inhalers. Follow-up with pulmonary Atrial fibrillation, unspecified type No symptoms. EKG sinus bradycardia declines Watchman procedure heart rate stable no CHF no chest pain Osteoporosis, unspecified os teoporosis type, unspecified pathological fracture presence Calcium and vitamin D twice daily weightbearing exercise alcohol moderation of smoking she recheck bone density in 2 years Aortic valve stenosis, etiol bharti of cardiac valve disease unspecified Aortic stenosis recheck echo in 1 year instructed to call if any chest pain shortness of breath presyncope dizziness etc. Sleep apnea Patient on CPAP cont inue doing well Hearing loss, unspecified he aring loss type, unspecified laterality Recommend ENT evaluation. Referral has already been placed patient did not hear back from them Pending Test Test Name Order Date EKG 09/08/2025 Referrals Referral Date Details [facility] hearing loss Next Appt Details Follow Up: Follow-up 6 month s labs pending EKG today, Reason: Provider Name:ROSETTA BRAMBILA, 03/09/2026 02:30:00 PM, [address] [place], [address], Progress Notes * Examination Category Sub-Category Detail Notes Category Not es General Examination HEENT: Conjunctiva pink anicteric mucous membranes moist oropharynx clear TMs clear sinus. EACs clear Neck: Supple carotids 2+ n o bruits lymphadenopathy or thyromegaly Heart: Regular rate and rhy thm 1/6 systolic ejection murmur right upper sternal border Lungs: clear to auscultatio n Abdomen: soft, non tender/non distended, no rebound tenderness, no guarding or rigidity, no masses palpated, no hepatosplenomegaly, normal active bowel sounds Extremities: no clubbing , cyanos is, or edema, pulses 2 plus bilaterally General Appearance Pleasant white femal e appearing stated age moderately overweight no apparent distress Skin: normal, no rash, megan ign appearing moles Neuro alert and oriented x 3, CN 2-12 intact, motor 5/5 bilaterally proximally and distally in all 4 extremities, no focal abnormality Musculoskeletal Right left knee full range of motion no restricted movements hips full range of motion as well History and Physical Notes * HPI (History of Present Illness) Category Sub-Category Detail Notes Category Not es General Hyperlipidemia see review of systems below Consultation Request Notes Referral Date Referring Provider Referred Provider Not es 09/08/2025 ROSETTA MCCALL , [facility] hearing loss
--- OUTSIDE RECORDS SUMMARY | 2025-09-08 04:00 | XMS_ITS ---
Author Organization [facility] Address [address] [place], [place] [id number] Care Team Providers Care Primary School Teacher Librarian Name Role Phone ROSETTA MCCALL Primary Care Provider [place], NUR[facility] [phone] REASON FOR VISIT 42/ flu IMMUNIZATIONS Vaccine Route Administration Date Status Comme nts Influenza, Fluzone HD 65+ IM Intramuscular 09/08/2025 Admi nistered Encounters Encounter Location Date Provider Diagnosis [address] [address] 09/08/2025 NURSING [place] Encounter for immunization Z23 ASSESSMENTS Encounter Date Diagnosis Assessment Notes Treatment Notes Treatment Clinical Notes Section Notes 09/08/2025 Encounter for immunization (ICD-10 - Z23) HD Influenza vaccine administered. Patient counseled and VIS sheet given. PLAN OF TREATMENT Treatment Notes Assessment Notes Encounter for immunization HD Influenza vaccine administered. Patient counseled and VIS sheet given. Next Appt Details Follow Up: prn, Reason: Provider Name:ROSETTA BRAMBILA, 03/09/2026 02:30:00 PM, [address] [place], [address],
--- OUTSIDE RECORDS SUMMARY | 2025-09-09 01:32 | XMS_ITS ---
Author Organization [facility] Address [address] [place], [place] [id number] Care Team Providers Care Plant Associate Name Role Phone ROSETTA MCCALL Primary Care Provider [phone] REASON FOR VISIT (W)blood sugar Encounters Encounter Location Date Provider Diagnosis [facility] [address] [place] [address] 09/09/2025 ROSETTA MCCALL Type 2 diabetes mellitus without complications E11.9 ASSESSMENTS Encounter Date Diagnosis Assessment Notes Treatment Notes Treatment Clinical Notes Section Notes 09/09/2025 Type 2 diabetes mellitus without complications (ICD-10 - E11.9) PLAN OF TREATMENT Future Test Test Name Order Date Hemoglobin [id number] 12/10/2025 [id number] 12/10/2025 Next Appt Details Provider Name:ROSETTA BRAMBILA, 03/09/2026 02:30:00 PM, [address] [place], [address],
--- OUTSIDE RECORDS SUMMARY | 2025-09-10 05:30 | XMS_ITS ---
Author Organization [facility] Address [address] [place] [address] Care Team Providers Care Compacting Machine Operator/Tender Name Role Phone Jared López MD Primary Care Provider Unavail able Black, Zara Unavailable [phone] Medications Medication SIG (Take, Route, Frequency, Duration) [...] Negative Encounters Encounter Location Date Provider Diagnosis [facility] Amilcar [address] [place] [address] 09/10/2025 Zara Tavarez Plan Of Treatment Next Appt Details Provider Name:Zara Tavarez , 12/14/2025 10:30:00 AM, [address] [place] [address], [phone], Provider Name:Zara Tavarez , 12/31/2025 02:45:00 PM, [address] [place] [address], [phone], Progress Notes * Poornima MANN ADOB: [birth year] (70 yo F)Acc No.[id number]:09/10/2025 Progress Notes Patient: Poornima BANKS Provider: Mahesh Tavarez DPM :1955 A ge:70 Y S ex:Female Date:09/10/2025 Address: [address], [place], [phone] Pcp:Jared López MD Subjective: * Chief [...] enies. C ardiovascular: Pacemaker d enies. M HISTOPATH TECH d enies. W PW d enies. C [...] DPM Date: Generated for Charlotte ivory/Willem/Hesham on: 11/15/2024 10:08 AM EST
--- NOTE | ~2025-09-15 | US_ITS ---
CLINICAL HISTORY: N20.0 - Calculus of kidney US of kidneys Comparison: [place]/SR - US KIDNEY BILATERAL - 09/15/24 09:07 EST Findings: Right kidney is normal in size, echogenicity and morphology, 11.5 cm in length. No calculus or hydronephrosis. Avascular cyst 2.1 x 1.4 x 1.5 cm of the midpole is not well visualized, previously 2.1 x 1.6 x 1.7 cm. Left kidney is normal in size, echogenicity and morphology, 10.9 cm in length. No calculus or hydronephrosis. Small cortical cysts 9 mm in the midpole and 8 mm in the lower pole. Limited color Doppler demonstrates unremarkable bilateral blood flow. Impression: Bilateral renal cysts, no nephrolithiasis. This document has been electronically signed by: Lanette Ding MD on 09/15/2025 15:19:26
--- OUTSIDE RECORDS SUMMARY | 2025-09-15 10:08 | XMS_ITS | Patient Health Record ---
Author Organization [facility] Address [address] [place], [place] [id number] Care Team Providers Care Fountain Dispenser Name Role Phone ROSETTA MCCALL Primary Care Provider [facility] Unavailable [phone] SUKHI BOCANEGRA Unavailable [phone] ALLERGIES Allergen (clinical drug ingredient) Drug/Non Drug Allergy documented on EMR Reaction Allergy Type Onset Date Status CATS, TREES (uncoded) Unknown Allergy Active REASON FOR REFERRAL Reason 08/25/25 w appt Refe rral to ear nose and throat surgeons [facility] acute right-sided hearing loss Diagnosis 1 Unspecified hearing loss (H91.90) Referral Organization [facility] Referring Provider First Name ROSETTA Referring Provider Mati Name STEFANY Referring Provider Speciality Internal edicine Referred Organization [facility] (1) Referred Address [address], [place],[address], Referred Provider Specialty Otology, Lar yngology, Rhinology General Notes Anna HUNT Admin 12:03:42 PM > faxed medical referral, note and most recent labs to [facility] at [phone] requesting an URGENT visit please>no referral required Referral Priority Urgent Reason Ear nose and throat surgeons [facility] hearing loss Diagnosis 1 Hearing loss, unspec ified hearing loss type, unspecified laterality (H91.90) Referral Organization [facility] Aleida borrero Referring Provider First Name ROSETTA Referring Provider Last Name STEFANY Referring Provider Speciality Internal edicine Referral Priority Routine MEDICATIONS Medication SIG (Take, Route, Frequency, Duration) Notes Start Date End Date Status Albuterol Sulfate HFA 108 (90 Base) MCG/ACT 1 puff as needed Inhalation every 4 hrs Active Eliquis 5 MG 1 tablet Orally Twic e a day for 30 day(s) Active Furosemide 20 MG TAKE 1 TABLET BY [place] TH DAILY NEEDED FOR SWELLING for 90 Active Arnuity Ellipta 100 MCG/ACT 1 puff Inhal ation Once a day Active Fluticasone Propionate 50 MCG/ACT 1 spray in each nostril Nasally Twice a day for 30 days Active Rosuvastatin Calcium 10 MG TAKE 1 TABLET BY MOUTH EVERY DAY for 90 Active Carvedilol 25 MG 1 tablet with food O rally Twice a day Active Amoxicillin 500 MG 4 capsule Orally one hour before procedure for 1 days 04/21/2025 Active Therapeutic Multivit/Mineral - 1 tab(s) orally once daily-Maintnenence for 30 day(s) Active IMMUNIZATIONS Vaccine Route Administration Date Status Comme nts Influenza, Fluzone HD 65+ IM Intramuscular 08/11/2024 Admi nistered Influenza, Fluzone HD 65+ IM Intramuscular 09/08/2025 Admi nistered SOCIAL HISTORY Tobacco Use: Social History Observation Description Date Details (start date - stop date) Never Smoker NA - NA Sex Assigned At : Social History Observation Description Sex Assigned At Unknown Smoking Question Answer Notes Are you a: never smoker PROBLEMS Problem Type ICD Code Onset Dates Problem Status W/U Status Risk SNOMED Code Notes Problem Endometrial cancer (182.0) Active confirmed Primary malig nant neoplasm of endometrium (87755429) Problem Asthma (493.90) Active confirmed Asthma (090507261) Problem Incisional hernia NOS (553.21) Active confirmed Incisional giovana ia (833649513) Problem Weight gain (783.1) Active confirmed Weight gain (637395366) Problem Abnormal feces (787.7) Active confirmed Abnormal feces (822799586) Problem Gastro-esophageal reflux disease without esophagitis (K21.9) Active confirmed Gastro-esophage al reflux disease without esophagitis (031126167) Problem Essential (primary) hypertension (I10) Active confirmed Essential hypertension (67185331) Problem Type 2 diabetes mellitus without complications (E11.9) Active confirmed Type II diabete s mellitus without complication (087390005) Problem Sleep apnea (G47.30) Active confirmed Sleep apnea (53055439) Problem Disorder of lipoprotein metabolism, unspecified (E78.9) Active confirmed Disorder of lipoprotein storage and metabolism (disorder) (665783251) Problem Other asthma (J45.998) Active confirmed Asthma (745894222) Problem Atrial fibrillation, unspecified type (I48.91) Active confirmed 13004634 Problem Osteoporosis, unspecified osteoporosis type, unspecified pathological fracture presence (M81.0) Active confirmed 77292341 Problem Unspecified hearing loss (H91.90) Active confirmed 65168875 Problem Aortic valve stenosis, etiology of cardiac valve disease unspecified (I35.0) Active confirmed 68662870 Problem Osteoarthritis of right knee, unspecified osteoarthritis type (M17.11) Active confirmed [id number] VITAL SIGNS Blood pressure diastolic 85 mm Hg 09/08/2025 Height 64 in 09/08/2025 Blood pressure systolic 130 mm Hg 09/08/2025 Weight 292 lbs 09/08/2025 BMI 50.12 kg/m2 09/08/2025 Encounters Encounter Location Date Provider Diagnosis [address] [address] 01/26/[address] [address] 01/26/2025 ROSETTA [place] [id number] 02/26/2025 ROSETTA MCCALL Essential (primary) hypertension I10 ; Disorder of lipoprotein metabolism, unspecified E78.9 ; Type 2 diabetes mellitus without complications E11.9 ; Gastro-esophageal reflux disease without esophagitis K21.9 ; Atrial fibrillation, unspecified type I48.91 ; Osteoporosis, unspecified osteoporosis type, unspecified pathological fracture presence M81.0 ; Aortic valve stenosis, etiology of cardiac valve disease unspecified I35.0 ; Colon cancer screening Z12.11 ; Encounter for screening mammogram for malignant neoplasm of breast Z12.31 and Screening for STD (sexually transmitted disease) Z11.[address] [address] 02/27/2025 ROSETTA MCCALL [address] [address] 02/27/2025 ROSETTA MCCALL [address] [address] 02/27/2025 ROSETTA MCCALL [facility] [address] [facility] [place] [address] 02/27/2025 ROSETTA MCCALL [facility] [address] [facility] [place] [address] 03/05/2025 ROSETTA MCCALL [facility] [address] [facility] [place] [address] 03/20/2025 ROSETTA MCCALL [facility] [address] [facility] [place] [address] 03/20/2025 ROSETTA MCCALL [facility] [address] [facility] [place] [address] 03/23/2025 ROSETTA MCCALL [facility] [address] [facility] [place] [address] 03/24/2025 ROSETTA MCCALL [facility] [address] [facility] [place] [address] 03/24/2025 ROSETTA MCCALL [facility] [address] [place] [address] 03/25/2025 ROSETAT MCCALL [facility] [address] [facility] [place] [address] 04/21/2025 ROSETTA MCCALL [facility] [address] [facility] [place] [address] 04/21/2025 ROSETTA [facility] [address] [place] [address] 05/07/2025 [facility] [address] [place] [address] 05/08/2025 [facility] Pain of left calf M79.662 and Essential (primary) hypertension I10 [facility] [address] [place] [address] 06/19/2025 [facility] [address] [place] [address] 06/29/2025 ROSETTA MCCALL [facility] [address] [place] [address] 07/22/2025 ROSETTA [facility] [address] [place] [address] 08/23/2025 ROSETTA [facility] [address] [place] [address] 08/24/2025 ROSETTA MCCALL Unspecified hearing loss H91.90 ; Essential (primary) hypertension I10 ; Disorder of lipoprotein metabolism, unspecified E78.9 ; Type 2 diabetes mellitus without complications E11.9 ; Gastro-esophageal reflux disease without esophagitis K21.9 ; Atrial fibrillation, unspecified type I48.91 and Other asthma J45.[address] [address] 08/24/2025 [place] [address] 08/24/2025 ROSETTA [address] 08/25/2025 [place] [address] 08/26/2025 ROSETTA MCCALL Hearing loss, unspecified hearing loss type, unspecified laterality H91.90 [place] [phone] 08/28/2025 [place] [address] 09/08/2025 ROSETTA MCCALL Essential (primary) hypertension I10 [...] unspecified hearing loss type, unspecified laterality H91.90 [place] [phone] 09/08/2025 [facility] Encounter for immunization Z23 [address] [address] 09/09/2025 ROSETTA MCCALL Type 2 diabetes mellitus without complications E11.9 ASSESSMENTS Encounter Date Diagnosis Assessment Notes Treatment Notes Treatment Clinical Notes Section Notes 02/26/2025 Essential (primary) hypertension (ICD-10 - I10) Blood pressure stable good control at present time check EKG sinus rhythm no change weight loss recommended exercise recommended no added salt diet liberalize potassium in the diet alcohol moderation 02/26/2025 Disorder of lipoprotein metabolism, unspecified (ICD-10 - E78.9) Review of systems negative for side effects check lipid profile LDL goal less than 100 follow-up in 6 months 09/08/2025 Essential (primary) hypertension (ICD-10 - I10) [...] goals and 100 LDL less than 100 05/08/2025 Essential (primary) hypertension (ICD-10 - I10) 1. Left calf pain and swelling: DVT seems unlikely given she is on Eliquis and denies missing dosing. Will check to be cautious given clear difference in size and degree of swelling. 2. Hypertension: Borderline today but stressed. Continue baseline medication with Coreg and lisinopril 05/08/2025 Pain of left calf (ICD-10 - M79.662) 1. Left calf pain and swelling: DVT seems unlikely given she is on Eliquis and denies missing dosing. Will check to be cautious given clear difference in size and degree of swelling. 2. Hypertension: Borderline today but stressed. Continue baseline medication with Coreg and lisinopril 08/24/2025 Essential (primary) hypertension (ICD-10 - I10) Recheck blood pressure stable mildly elevated will follow-up 2 weeks recommend weight loss exercise no added salt diet 08/24/2025 Unspecified hearing loss (ICD-10 - H91.90) Physical exam symptoms will check a CT scan with attention to the internal auditory canal. Will check a CBC with a differential Lyme titer sed rate etc. Consultation ear nose and throat. Add prednisone 40 mg a day for 5 days and a Z-Omar. 08/26/2025 Hearing loss, unspecified hearing loss type, unspecified laterality (ICD-10 - H91.90) 09/08/2025 Encounter for immunization (ICD-10 - Z23) HD Influenza vaccine administered. Patient counseled and VIS sheet given. 09/09/2025 Type 2 diabetes mellitus without complications (ICD-10 - E11.9) 02/26/2025 Type 2 diabetes mellitus without complications (ICD-10 - E11.9) Stable. Check A1c no polyuria polydipsia no ophthalmologic or neurologic symptoms goal A1c less than 7.0 optimally ophthalmology q. year baby aspirin 09/08/2025 Type 2 diabetes mellitus without complications (ICD-10 - E11.9) Patient with prediabetes. Follow-up A1c every 3 to 4 months ophthalmology q. year diet exercise weight maintenance hopefully will be getting GLP-1 for weight and prediabetes 08/24/2025 Disorder of lipoprotein metabolism, unspecified (ICD-10 - E78.9) Stable recheck every 6 months diet exercise weight loss recommended 09/08/2025 Gastro-esophagea l reflux disease without esophagitis (ICD-10 - K21.9) Stable doing well dietary recommendations including minimizing alcohol caffeine peppermint spearmint chocolate citrus etc. 08/24/2025 Type 2 diabetes mellitus without complications (ICD-10 - E11.9) Check A1c diet weight loss exercise question Rigoberto will discuss at next visit 02/26/2025 Gastro-esophagea l reflux disease without esophagitis (ICD-10 - K21.9) Stable doing well 02/26/2025 Atrial fibrillation, unspecified type (ICD-10 - I48.91) Continue anticoagulation heart rate well-controlled no CHF no chest pain follow-up cardiac echo this summer follow-up cardiology every 6 months 09/08/2025 Other asthma (ICD-10 - J45.998) Physical exam normal continue inhalers. Follow-up with pulmonary 08/24/2025 Gastro-esophagea l reflux disease without esophagitis (ICD-10 - K21.9) Stable dietary recommendations discussed head of bed elevation as needed PPI 02/26/2025 Osteoporosis, unspecified osteoporosis type, unspecified pathological fracture presence (ICD-10 - M81.0) Calcium 1200 today vitamin D 800 today check bone density Rx given to patient 09/08/2025 Atrial fibrillation, unspecified type (ICD-10 - I48.91) No symptoms. EKG sinus bradycardia declines Watchman procedure heart rate stable no CHF no chest pain 08/24/2025 Atrial fibrillation, unspecified type (ICD-10 - I48.91) Follow-up with [facility] cardiology in normal sinus rhythm at the present time Watchman procedure has been discussed she is thinking about it 02/26/2025 Aortic valve stenosis, etiology of cardiac valve disease unspecified (ICD-10 - I35.0) Mild aortic stenosis by echocardiogram. No CHF no SUPPORT REPRESENTATIVE symptoms no chest pain follow-up echo 09/08/2025 Osteoporosis, unspecified osteoporosis type, unspecified pathological fracture presence (ICD-10 - M81.0) Calcium and vitamin D twice daily weightbearing exercise alcohol moderation of smoking she recheck bone density in 2 years 08/24/2025 Other asthma (ICD-10 - J45.998) 02/26/2025 Colon cancer screening (ICD-10 - Z12.11) Up-to-date colonoscopy 09/08/2025 Aortic valve stenosis, etiology of cardiac valve disease unspecified (ICD-10 - I35.0) Aortic stenosis recheck echo in 1 year instructed to call if any chest pain shortness of breath presyncope dizziness etc. 02/26/2025 Encounter for screening mammogram for malignant neoplasm of breast (ICD-10 - Z12.31) Rx given to patient for mammogram 09/08/2025 Sleep apnea (ICD9-CM - 786.09) Patient on CPAP continue doing well 02/26/2025 Screening for STD (sexually transmitted disease) (ICD-10 - Z11.3) Per patient former boyfriend history of cheating therefore patient wants to get checked for HIV hep C etc. order placed 09/08/2025 Hearing loss, unspecified hearing loss type, unspecified laterality (ICD-10 - H91.90) Recommend ENT evaluation. Referral has already been placed patient did not hear back from them PLAN OF TREATMENT Pending Test Test Name Order Date EKG 08/14/2024 EKG 09/08/2025 XR Knee Left 2 views 07/17/2023 CT Head (Brain) without IV contrast 08/12 Future Test Test Name Order Date Hemoglobin [id number] 08/09/2024 CBC, Platelet, w/o Differential-[id number] 08/09/2024 Albumin/Creatinine Ratio,[id number] Lipid Panel-[id number] 08/09/2024 Hepatic Function Panel [id number] 2023 BMP8+[id number] 08/09/2024 Hemoglobin [id number] 12/10/2025 BMP8+[id number] 12/10/2025 Next Appt Details Provider Name:ROSETTA ANDERSON PATTY, 03/09[birth year]2026 02:30:00 PM, [address] [facility], [place], [address], Insurance Providers Payer Name Payer Address Payer Phone Subscriber Number Group Number Insured Name Patient Relationship to Insured Coverage Start Date Coverage End Date MEDICARE [employer] [address] [place] [address] [id number] LUPE MANN Self - patient is the insured 2 HNE MEDICARE SUPPLEMENT AL [address] [place] [address] [id number] JOHNATHANLUPE LOVE Self - patient is the insured 3 MEDICAL (GENERAL) HISTORY Medical History History ICD Code hyperlipidemia borderline hypertension asthma program dir endometrial cancer status post ANTHONY/BSO 2 001 obesity sleep apnea - uses CPAP. Severe sleep ap heidy hyperglycemia Atrial fibrillation cardiology Dr. Castaneda Aortic stenosis Echo April 2020 treat mil d COPD [employer] Dr. Morley Mammogram June [address] a April 2022 negative Cardiac echo April 2023 lvh g rade 2 diastolic dysfunction mild aortic stenosis mild MR EF 55% Bilateral knee replacements Colonoscopy December 2021 Dr. Carmichael re check in 10 years PFTs May 2022 normal slight decrease in diffusion capacity History of elevated LFTs wor k-up included hemochromatosis gene mutation testing being negative alpha 1 antitrypsin negative antimitochondrial antibody negative antinuclear antibody negative anti-smooth muscle antibody negative hepatitis C negative hepatitis B negative Bone density May 2021 Echocardiogram May 2024 EF 55% mild aortic stenosis. Ascending aorta 3.7 cm. Mild LVH Cardiology follow-up February 2024 Dr. Terry serra Mammogram April 2025 negative Bone density April 2025 osteopenia Cardiac echo May 2025 normal EF mild LV H mild ascending aorta 3.6 cm Ultrasound right lower extremity - April 2025 CT of temporal bones August 2025 negati ve Surgical History Surgery Date(Month/Year) double hernia 10/2013 right knee mcl/acl 02/26/2010 hysterectomy, total 2010 left TKR 08/24/2010 Lt Knee 2007 wisdom teeth extract 1978
--- OUTSIDE RECORDS SUMMARY | 2025-09-15 10:09 | XMS_ITS | Data Portability ---
Author Organization [place] - 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 She has a history of bilateral total knee arthroplasties. We discussed that radiographically her hardware appears to be in appropriate position without evidence of loosening or failure. There was no evidence of an acute fracture seen on Xray. On exam today, she does have some laxity noted that is comparable bilaterally. At this time, I have recommended a course of formal physical therapy. A prescription was placed for this today. We did also discuss the role of weight loss. Should these measures fail, we did discuss possibility of a genicular nerve block in the future. We will plan to have the patient follow up in 3 months for re-evaluation, or sooner as needed. Patient agrees with and is satisfied with this plan. Patient had the opportunity to ask questions, all of which were answered to their satisfaction. [email or web address] Not available 11/06/2023 14:16:42 01/29/2024 01/29/2024 Assessment: Bilateral fzwbo-mcxczrb-zquj -left knee pain in the setting of a patient with bilateral total knee arthroplasties Bilateral leg pain question right lumbar radiculopathy Chronic low back pain Plan: I discussed the clinical exam and radiographic findings in detail with the patient today. She did not see much relief in her knee pain with physical therapy. However she would like to avoid any invasive management for her knees at this time. She did just start a weight loss medication and I do believe that weight loss will help her pain. Her biggest complaint today seems most consistent with a right lower extremity radiculopathy. I recommend follow-up with 1 of our spine surgeons or a spine surgeon closer to where she lives. I put in a physical therapy referral for her low back today. We will see her back in 3 months for repeat evaluation of her bilateral knees. If the weight loss medication and the workup of the lumbar spine does not alleviate her knee pain we can further discuss possible genicular nerve block versus advanced imaging. She is happy with this plan and her questions were answered. Patient's case was discussed with Dr. Tobias and he agrees with the assessment. [email or web address] Not available 01/29/2024 13:24:00 05/27/2024 05/27/2024 Assessment: Bilateral ipuoh-fsavkdw-gcns -left knee pain in the setting of a patient with bilateral total knee arthroplasties Bilateral leg pain question right lumbar radiculopathy Chronic low back pain Plan: I discussed the clinical exam and radiographic findings in detail with the patient today. Overall she has relatively consistent pain in the right knee. Worse after heavy activity where she thinks that it swells up. She also complains of pain starting in her low back and running down her lateral thighs. Still able to get around and do all her activities. No fevers or chills. No calf tenderness. No start-up pain. In the past we discussed possible referral to pain management. I do think that this would be helpful for her to deal with both her radicular type pain as well as potentially consider a genicular nerve block for the knee. She does live far away and may look for a pain management center closer to her house. I did provide her with a referral to pain management today. In addition I provided her with a hinged knee brace to wear when she plays golf. Hopefully this can help her with some of the swelling she gets with overuse. All patient questions were answered to her satisfaction and she was happy with the plan going forward [email or web address] Not available 05/27/2024 12:05:56 Plan of Treatment Reminders Order Date Submit Date Provider Last Modified By Organization Details Last Modified Time Details Appointments None recorded. Lab None recorded. Referral physical therapist referral - Core strengtheni ng and lumbar stabilizati on exercises 2023 024 [email or web address] Not available 4 14:42:32 physical therapist referral - Core strengtheni ng and lumbar stabilizati on exercises 2023 024 [email or web address] Not available 4 13:22:29 physical therapist referral - B/l knee pain (R>L). History of b/l TKA - R in 2019, L in 2009. Please work on quadriceps, hamstring, glute, abdominal strengtheni ng 2022 023 [email or web address] Not available 13:40:58 Procedures None recorded. Surgeries None recorded. Imaging None recorded. Medication Orders None recorded. Patient TargetsNo targets recorded. Patient InstructionsNo instructions recorded. Reason for Referral Physical Therapist Referral for Pain of bilateral knee regions B/l knee pain (R>L). History of b/l TKA - R in 2018, L in 2009. Please work on quadriceps, hamstring, glute, abdominal strengthening Referring Physician: Tres Tobias, Orthopedic Surgery, Encounter Date: 11/06/2023 Physical Therapist Referral for Lumbar radiculopathy Core strengthening and lumbar stabilization exercises Referring Physician: Tres Tobias, Orthopedic Surgery, Encounter Date: 01/29/2024 Physical Therapist Referral for Lumbar radiculopathy Core strengthening and lumbar stabilization exercises Referring Physician: Tres Tobias, Orthopedic Surgery, Encounter Date: 05/27/2024 Results Created Date Observation Date Name Description Value Unit Range Abnormal Flag Note LastModifiedBy Organization Detail LastModifiedTime 11/06/2011/06/2023 x-ray Knee INTERFACE [facility] [address] [facility], [place], [address], 11/06/2023 13:58:44 Result Notes None recorded. 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 2016 M17.11:Os teoarthri tis-Right Knee Not Available [facility] 0 12:20:20 Chondroma lacia of right patella 26706007462 280957 Active 2016 M22.41:Ch ondromala astrid patellae, right knee Not Available [facility] 0 12:20:20 Idiopathi c osteoarth ritis 574105061 Active 2017 M17.0:Ben ateral primary osteoarth ritis of knee Not Available [facility] 0 12:20:20 Pain in right knee Active 2018 M25.561:P ain-Right Knee Not Available [facility] 0 12:20:20 Pain in left knee Active 2018 M25.562:P ain-Left Knee Not Available [facility] 0 12:20:20 Problem Notes None recorded. Procedures Surgical History Date Name Laterality Status Provider Name and Address Organization Details Recorded Time 024 Test Interpretation completed ISRAEL MCKEON [address] [place], [address], [facility] 01/29/2024 13:21:52 023 SMN Xray Knee (4) completed ISRAEL ORTIZ [address] [place], [address], [facility] 11/06/2023 13:58:27 Imaging Results None recorded. Procedure Notes None recorded. Medical Equipment None Reported. Allergies Allergen ID Allergen Name Allergen Category Reaction Reaction Severity Criticality Documentation Date Start Date Code Code System Note Provider Name and Address Organization Details Recorded Time 24075 cat dander environme nt Not available Not available Not available 11/07/[address] [facility] 3 12:20:08 39701 Canis lupus familiari s extract environme nt Not available Not available Not available 11/07/2023 [address] [facility] 3 12:20:08 28694 house dust mite environme nt Not available Not available Not available 11/07/[address] [facility] 3 12:20:08 Medications Name Sig Start Date Stop Date Status Note LastModified by Organization Details LastModified Time amoxicillin 500 mg capsule Take 4 capsule(s ) 1 hour before procedure by oral route. 10/26 completed Not Available Not Available Not Available carvedilol 25 mg tablet TAKE 1 TABLET BY MOUTH TWICE DAILY WITH MEALS active Not Available Not Available No t Available tizanidine 2 mg tablet TAKE 1 TABLET BY MOUTH EVERY 6 TO 8 HOURS NEEDED FOR 2 DAYS 10/26 completed Not Available Not Available Not Available azithromyci n 250 mg tablet TAKE 2 TABLETS BY MOUTH TODAY, THEN TAKE 1 TABLET DAILY FOR 4 DAYS 10/26 completed Not Available Not Available Not Available tizanidine 4 mg tablet TAKE 1 TABLET BY MOUTH EVERY EIGHT TO TWELVE HOURS NEEDED 10/26 completed Not Available Not Available Not Available benzonatate 200 mg capsule TAKE 1 CAPSULE BY MOUTH THREE TIMES A DAY NEEDED FOR COUGH active Not Available Not Available No t Available amiodarone 400 mg tablet TAKE 1 TABLET TWICE A DAY FOR 2 WEEKS THEN 1 TABLET A DAY THERE AFTER 10/26 completed Not Available Not Available Not Available erythromyci n 5 mg/gram (0.5 %) eye ointment APPLY 1 APPLICATI ON INTO THE LOWER EYELID OF AFFECTED EYE FOUR TIMES A DAY 10 DAYS 10/26 completed Not Available Not Available Not Available polymyxin B sulfate 10,000 unit-trimet hoprim 1 mg/mL eye drops INSTILL 1 DROP INTO AFFECTED EYE 4 TIMES A DAY FOR 7 DAYS 10/26 completed Not Available Not Available Not Available furosemide 20 mg tablet TAKE 1 TABLET BY MOUTH DAILY NEEDED FOR SWELLING active Not Available Not Available No t Available estradiol 0.01% (0.1 mg/gram) vaginal cream APPLY 1 G VAGINALLY 3 TIMES A WEEK FOR 30 DAYS active Not Available Not Available No t Available methylpredn isolone 4 mg tablets in a dose pack TAKE 6 TABLETS ON DAY 1 DIRECTED ON PACKAGE AND DECREASE BY 1 TAB EACH DAY FOR A TOTAL OF 6 DAYS 10/26 completed Not Available Not Available Not Available albuterol sulfate HFA 90 mcg/actuati on aerosol inhaler INHALE 2 PUFFS BY MOUTH EVERY 6 HOURS IF NEEDED. active Not Available Not Available No t Available fluticasone propionate 50 mcg/actuati on nasal spray,suspe nsion SPRAY 1 SPRAY INTO EACH NOSTRIL TWICE A DAY active Not Available Not Available No t Available neomycin 3.5 mg/g-polymy laura B 10,000 unit/g-dexa meth 0.1 % eye oint APPLY TO THE LOWER LEFT EYELID AT BEDTIME FOR ONE WEEK 10/26 completed Not Available Not Available Not Available rosuvastati n 10 mg tablet TAKE 1 TABLET BY MOUTH EVERY DAY FOR 90 DAYS active Not Available Not Available No t Available DILT-XR 240 mg capsule, extended release TAKE 1 CAPSULE BY MOUTH EVERY DAY active Not Available Not Available No t Available Xarelto 20 mg tablet TAKE 1 TABLET BY MOUTH EVERY DAY active Not Available Not Available No t Available Eliquis 5 mg tablet active Not Available Not Available No t Available Arnuity Ellipta 100 mcg/actuati on powder for inhalation TAKE 1 PUFF BY MOUTH EVERY 24 HOURS,X30 DAYS, RINSE MOUTH AND THROAT AFTER USE active Not Available Not Available No t Available Mounjaro 5 mg/0.5 mL subcutaneou s pen injector DIRECTED SUBCUTANE OUS 30 DAYS active Not Available Not Available No t Available Mounjaro 2.5 mg/0.5 mL subcutaneou s pen injector INJECT 1 PREFILLED PEN SUBCUTANE OUSLY ONCE A WEEK DIRECTED active Not Available Not Available No t Available Vitals Date Recorded Body height Body weight Provider Name and Address Organization Details Last Updated DateTime 01/26/2024 160 cm 363117.1 g Not Available Capsule 01/10 14:37:17 Date Recorded Body height Body weight Provider Name and Address Organization Details Last Updated DateTime 05/25/2024 160 cm 242509.9 g Not Available Capsule 05/12 08:46:47 Date Recorded Body height Body weight Provider Name and Address Organization Details Last Updated DateTime 05/27/2024 160 cm 845701 g Not Available Capsule 05/27 20:32:56 Social History Question Answer Notes LastModified by Organization D etails LastModified Time Have You Had X-rays/imaging For Today's Condition? Yes Information not available 11/07/2023 Have You Had A Bone Density Screening? Yes Information not available 11/07/2023 Sex: Unknown Functional Status None recorded. Mental Status None recorded. Family History Nothing Reported Notes:Family History-Cancer Family History-No history of complications with anesthesia Medical History Condition Response sleep apnea Y High Cholesterol Y Gynecological HistoryNo gynecological history recorded. Obstetrics History GPAL:G 0 P 0 0 0 0 Past Encounters Encounter ID Performer Location Encounter Start Date Encounter Closed Date Diagnosis/Indication Diagnosis SNOMED-CT Code Diagnosis ICD10 Code Diagnosis IMO Codes Diagnosis Note [id number] TRES TOBIAS MD [facility] - [place] [address] [place] [address] 11/06/2023 13:20:25 11/07/2023 09:55:18 Pain of bilateral knee regions 2423757283 47364 M25.[id number] [facility] - [place] [address] [place] [address] 01/29/2024 12:54:06 01/30/2024 14:51:13 Pain of bilateral knee regions 2427354932 11109 M25.561 Lumbar radiculopathy 128 244591 M54.16 [id number] [facility] - [place] [address] [employer] [address] 05/27/2024 10:40:13 05/27/2024 11:40:14 Pain of bilateral knee regions 2948232710 84097 M25.561 Lumbar radiculopathy 128 788199 M54.16 Health Concerns Section Related Observation LastModified by Organization Detai ls LastModified Time None Recorded Concern Status LastModified by Organization Details LastModified Time None Recorded Advance Directives Directive None Recorded Payers Insurance Date Sequence Insurance Name Policy Number Policy Johnson Covered Member ID Johnson Member ID Guarantor Name 05/29/2024 [employer] - SPECIALITY CLAIMS (MEDICARE DME REGION A) Poornima Waggoner [id number] Poornima A Hewitt 05/27/2024 2 [facility] - PLAN 1 (MEDICARE SUPPLEMENT) [id number] Poornima Waggoner [id number] Poornima Waggoner 11/06/[address] [facility] - OPEN ACCESS PLUS [id number] Poornima Waggoner [id number] Poornima Waggoner 11/06/2023 1 [facility] [id number] Poornima Waggoner [id number] Poornima Waggoner 05/27/2024 1 MEDICARE B-CT: [facility] Poornima Waggoner [id number] Poornima Waggoner Notes Date Note Type Note Provider Name and Address Organization Details Recorded Time 11/06/2023 text/html SMN KneeReported by PatientROS as noted in the HPI Diagnosis: Bilateral knee pain Previous Surgeries: Bilateral multi ligament surgeries by [facility] total knee arthroplasty [address] Rand, spacer replacement 2019Right total knee arthroplasty [address] Rand History of Present Illness:Patient is a pleasant 68-year-old female presenting today of her evaluation of her bilateral knees. Patient has had several surgeries on her bilateral knees, with the most recent being bilateral total knee arthroplasties with Dr. Rand. She reports that over the past several months she has been noticing primarily medial right knee pain as well as popping when standing up from a sitting position. She also reports some numbness along the anterior aspect of her knee. She denies any fevers, chills, or other constitutional symptoms today. She presents today for further orthopedic evaluation. ISRAEL ORTIZ [address] [place], [address], [facility] 11/06/2023 14:17:32 01/29/2024 text/html SMN KneeReported by PatientROS as noted in the HPI Diagnosis: Bilateral knee pain Previous Surgeries: Bilateral multi ligament surgeries by [facility] total knee arthroplasty [address] Rand, spacer replacement 2019Right total knee arthroplasty [address] Rand History of Present Illness:Patient is a pleasant 68-year-old female presenting today for repeat evaluation of her bilateral knees. She did do physical therapy for the past couple of months for bilateral knee pain without much relief. However she is also complaining of pain that starts in her back and goes down the top of the right leg. Denies any bowel or bladder dysfunction or perineal numbness. No recent injury or trauma. She did go to her primary care provider for her low back and brought in x-rays today of her lumbar spine. She also just started a weight loss medication. No injury or trauma since we saw her last. She is hoping to avoid anymore surgery on her knees if possible. ISRAEL MCKEON [address] [place], [address], [facility] 01/29/2024 13:24:21 05/27/2024 text/html SMN KneeReported by PatientROS as noted in the HPI Diagnosis: Bilateral knee pain Previous Surgeries: Bilateral multi ligament surgeries by [facility] total knee arthroplasty [address] Rand, spacer replacement 2019Right total knee arthroplasty [address] Rand History of Present Illness:Patient is a pleasant 68-year-old female presenting today for repeat evaluation of her bilateral knees. She has a history of bilateral total knee arthroplasties. She does note pain in the right knee which is relatively chronic. Bothers him more than the left knee. Sometimes feels like it is slightly unstable. Worse after playing a full day of golf. She notes she has lost 10 lb since we last saw her. She also notes pain that starts in her lower back and runs down her lateral thighs. Overall multifactorial pain picture. TRES TOBIAS MD [address] [place], [address], [facility] 05/27/2024 12:06:25 OBGyn Episode No OBEpisode recorded.
--- OUTSIDE RECORDS SUMMARY | 2025-09-15 10:09 | XMS_ITS | Patient Health Record ---
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 Mechanic Name Role Phone Jared López MD Primary Care Provider Unavail able Black, Zara Unavailable [phone] Allergies No Known Allergies Results Component Value Reference Range Notes X ray : Foot, left 3V Reviewed date:09/09/2025 12:43:18 PM Interpretation:See Examination above Performing Lab: Notes/Report: See Examination above X ray : Foot, right 3V Reviewed date:09/09/2025 12:43:07 PM Interpretation:See Examination above Performing Lab: Notes/Report: See Examination above Reason For Referral No Information Medications Medication SIG (Take, Route, Frequency, Duration) Notes Start Date End Date Status Tylenol PRN Active Turmeric Active ZyrTEC Allergy 10 MG 1 tablet Orally Onc e a day Active valACYclovir HCl 500 MG 1 tablet Orally Once a day As needed Active Night Splint AFO - L1930 1 wear at rest; Duration: 30 days Active Calcium + D3 Active ZyrTEC Allergy 10 MG 1 tablet Orally Onc e a day Active Turmeric 500 MG as directed Orally Active Tylenol Extra Strength 500 MG 1 tablet as needed Orally every 6 hrs Active Calcium + D3 Active Fluticasone Propionate 50 MCG/ACT 1 spray in each nostril Nasally Twice a day Active Albuterol Sulfate 108 (90 Base) MCG/ACT 1 puff as needed Inhalation Active valACYclovir HCl 500 MG 1 tablet Orally Once a day Active Arnuity Ellipta 100 MCG/ACT 1 puff Inhal ation Once a day Active Albuterol Sulfate Ac tive Fluticasone Propionate 50 MCG/ACT 1 spray in each nostril Nasally Twice a day Active Furosemide 20 MG 1 tablet Orally Once a day Active Carvedilol Active Rosuvastatin Calcium 10 MG 1 tablet Oral ly Once a day Active Rosuvastatin Calcium 10 MG 1 tablet Oral ly Once a day Active Carvedilol Active Furosemide 20 MG 1 tablet Orally Once a day Active Eliquis 5 MG as directed Orally Active Arnuity Ellipta 100 MCG/ACT 1 puff Inhal ation Once a day Active Eliquis 5 MG as directed Orally Active Social History Tobacco Use: Social History [...] Never (0 point) Points 2 Interpretation Negative Problems Problem Type SNOMED Code ICD Code Onset Dates Problem Status W/U Status Risk Notes Problem Plantar fasciitis (656115177) Plantar fasciitis (M72.2) Active confirmed Problem Interstitial myositis (48820632) Interstitial myositis of right foot (M60.171) Active confirmed Vital Signs Blood pressure diastolic 84 mm Hg 09/09/2025 Height 5ft 3in in 09/09/2025 Blood pressure systolic 135 mm Hg 09/09/2025 Weight 287 lbs 09/09/2025 BMI 50.83 kg/m2 09/09/2025 Encounters Encounter Location Date Provider Diagnosis [facility] [address] 09/09/2025 Zara Black Ingrown nail L60.0 ; Plantar fasciitis M72.2 ; Pain in right foot M79.671 ; Calcaneal spur, right foot M77.31 ; Interstitial myositis of right foot M60.171 ; Bursitis of right foot M77.51 ; Pain in left foot M79.672 ; Other myositis, left ankle and foot M60.872 and Bursitis of left foot M77.52 [facility] [place] [address] [place] [address] 09/03/2025 Zara Tavarez [facility] [address] [address] 09/09/2025 Zara Tavarez Assessments Encounter Date Diagnosis (ICD Code) Assessment Notes Treatment Notes Treatment Clinical Notes Section Notes 09/09/2025 Ingrown nail (ICD-10 - L60.0) 09/09/2025 Plantar fasciitis (ICD-10 - M72.2) Patient Educated with: HEEL CORD STRETCHES.pdf (HEEL CORD STRETCHES.pdf) Patient Educated with: RICE THERAPY.pdf (RICE THERAPY.pdf) 09/09/2025 Pain in right foot (ICD-10 - M79.671) 09/09/2025 Calcaneal spur, right foot (ICD-10 - M77.31) 09/09/2025 Interstitial myositis of right foot (ICD-10 - M60.171) 09/09/2025 Bursitis of right foot (ICD-10 - M77.51) 09/09/2025 Pain in left foot (ICD-10 - M79.672) 09/09/2025 Other myositis, left ankle and foot (ICD-10 - M60.872) 09/09/2025 Bursitis of left foot (ICD-10 - M77.52) 09/09/2025 Other Plan Of Treatment Next Appt Details Provider Name:Zara Tavarez , 12/14/2025 10:30:00 AM, [address] [place] [address], [phone], Provider Name:Zara Tavarez , 12/31/2025 02:45:00 PM, [address] [place] [address], [phone], Insurance Providers Payer Name Payer Address Payer Phone Subscriber Number Group Number Insured Name Patient Relationship to Insured Coverage Start Date Coverage End Date Medicare [employer] [address] [place] [address] [phone] [id number] Poornima Waggoner Self - patient is the insured [address] [facility] [place] [address] [id number] Edilson Poornima Self - patient is the insured 4 Medical (General) History Medical History History ICD Code asthma Back,Hip,and Knee pain CAD (Cholesterol) Heart disease High Blood Pressure Joint implants/screws Surgical History Surgery Date(Month/Year) knee replacement 12/2009 knee replacement 2019 double hernia 10/2013 hysterectomy 07/2011 achilles ruptured 05/2020 ablation of the heart 10/2022
== END 2025-09-15 09:19 | disposition home or self-care (01) ==
LOC: HO.HMGCX 09:18
PROVIDERS: PCP Internal Medicine; Visit Provider Nurse Practitioner Family
DX: N20.0 Calculus of kidney (principal)
CPT/HCPCS: 76775

== ENCOUNTER → 2025-09-15 09:25 | Outpatient (BNV) | payer MEDICARE, OTHER, SELFPAY | PROVIDERS: PCP Internal Medicine; Visit Provider Radiology Diagnostic Radiology | DX: N28.1 Cyst of kidney, acquired (principal) | CPT/HCPCS: 76775 ==

== ENCOUNTER 2025-09-29 08:34 | Outpatient (AMB) | payer MEDICARE, OTHER, SELFPAY ==
--- NOTE | 2025-09-29 08:42 | A.OFFVIS_ITS ---
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 Accompanied by: Self / Same As Patient Allergies cat dander (cats) Allergy (Unknown, Verified 09/29/25 09:25) Unknown dog dander (dogs) Allergy (Unknown, Verified 09/29/25 09:25) Unknown Medication List - Last Reconciled 09/29/25 by MONICA Frazier- albuterol sulfate 90 mcg/actuation inhalation apixaban (Eliquis) 5 mg PO BID carvedilol 25 mg PO BID cetirizine (Zyrtec) 10 mg PO DAILY PRN estradiol 0.01%(0.1mg/gram) (Estrace) 1 g vaginal 3XW 90 days fluticasone furoate 100 mcg/actuation (Arnuity Ellipta) 1 inh inhalation DAILY fluticasone propionate 50 mcg/actuation 1 spray intranasal BID furosemide 20 mg PO DAILY rosuvastatin 10 mg PO BEDTIME [valacyclon PO] [vitamin d3 with calcium PO] HPI Comments Details: Poornima is a very pleasant 70-year-old female patient. She presents to the office for follow-up of her recurrent UTIs and renal cyst. In discussion with the patient today she reports to be doing and feeling well. Recent renal imaging results reviewed with the patient today. 10/06 bilateral renal cyst, no hydronephrosis or renal calculi noted. She denies having had any UTI like symptoms and or UTI since her last office visit here. She does continue to utilize Estrace cream as prescribed and is requesting a refill today. She also reports noting episodes of urinary frequency and urgency typically in the morning after consumption of her Lasix. She reports she has been attempting to perform pelvic floor exercises at home and has found this helpful. She discusses her recent appointment here with our weight management program. In office urinalysis results reviewed with the patient today. She denies nocturia, hematuria, dysuria, foul smelling urine, changes to urinary stream, flank pain, fever, and or chills. She is happy with her current voiding parameters. We did discussed further treatment options of lower urinary tract symptoms however she does feel she is managing well independently and would like to continue with surveillance monitoring. We also discussed surveillance monitoring of renal cyst. All questions were answered. She otherwise offers no other issues or concerns at this time. [facility] Medical History Afib Recurrent UTI Acute cystitis with hematuria Renal cyst, acquired Surgical History History of cardiac ablation Hx of colonoscopy Hx of hysterectomy, total Hx of hernia repair Hx of total knee replacement History of surgery Family History Mother Hypertension Father Hypertension Brother Hypertension Social History Alcohol intake: current Patient Tobacco Use Status: Never used Tobacco Review of Systems Const All systems reviewed & are unremarkable except as noted in HPI and below Physical Exam Const General: cooperative, healthy appearing, comfortable, no acute distress, well developed, alert and awake Nutritional Appearance: overweight Orientation/consciousness: patient oriented x3 Limitations: no limitations HEENT Head: Yes normal to inspection, Yes normocephalic and Yes atraumatic Ears: hearing grossly normal bilaterally Eyes General: appearance normal, both eyes and all related structures Neck Neck: Yes normal visual inspection and Yes trachea midline Chest Chest palpation & inspection: normal inspection of the chest Resp Effort & Inspection: normal respiratory effort and able to speak in complete sentences Cardio Rate: regular rate GI Inspection: Yes normal to inspection General: Yes no CVA tenderness Back/Spine/Pelvis Back: no CVA tenderness Skin General skin exam: no rashes or lesions noted Neuro General: patient oriented x3 Extrem General: Yes normal to inspection Psych Appearance: grossly normal and well kempt Mental Status: mental status grossly normal Speech and movement: Normal speech and movement present and Clear speech present Affect: normal affect Attitude: cooperative Thought process: Normal thought process present Thought content: Normal thought content present Insight: Fair insight present (Psych) Judgement: Fair judgement present (Psych) Results Reviewed Results Reviewed: sixto Physician: Autumn Schneider Date of Service: 09/15/25 Procedure(s): US renal BI Accession Number(s): [id number] cc: Autumn Schneider; Jared López Reason for Exam: N20.0 - Calculus of kidney CLINICAL HISTORY: N20.0 - Calculus of kidney US of kidneys Comparison: US/OH/SR - US KIDNEY BILATERAL - 09/15/24 09:07 EST Findings: Right kidney is normal in size, echogenicity and morphology, 11.5 cm in length. No calculus or hydronephrosis. Avascular cyst 2.1 x 1.4 x 1.5 cm of the midpole is not well visualized, previously 2.1 x 1.6 x 1.7 cm. Left kidney is normal in size, echogenicity and morphology, 10.9 cm in length. No calculus or hydronephrosis. Small cortical cysts 9 mm in the midpole and 8 mm in the lower pole. Limited color Doppler demonstrates unremarkable bilateral blood flow. Impression: Bilateral renal cysts, no nephrolithiasis. Assessment & Plan Assessment & Plan (1) Renal cyst, acquired: Code(s): N28.1 - Cyst of kidney, acquired Category: Medical (2) Recurrent UTI: Code(s): N39.0 - Urinary tract infection, site not specified Category: Medical Plan In office urinalysis results reviewed with the patient today; as noted above. Most recent renal imaging results reviewed with the patient today; as noted above. Will continue with surveillance monitoring. She currently denies any bothersome urinary issues or concerns. She reports be happy with current voiding parameters. All questions were answered. Continue Estrace cream as discussed and prescribed; refill provided Will obtain MRI renal mass protocol in 1 year. Follow-up in 1 year with imaging; or sooner with any issues, concerns, and or questions. Orders: Orders MR abdomen wo/w con Today N28.1 - Cyst of kidney, acquired Medications: Refilled estradiol 0.01%(0.1mg/gram) (Estrace) Apply pea-sized amount to urethra 3 times per week 1 g vaginal 3XW 42.5 grams 3RF 90 days Patient Instructions: The patient had an opportunity to ask questions regarding the treatment plan. All questions were answered. Physical exam, labs, and imaging were discussed and reviewed in detail. As well as risks, benefits, and discussion of treatment choices. No major barriers to understanding were identified. The patient expressed understanding and agreement with the above treatment plan. The patient was made aware they should contact our office by phone for worsening of their current condition, the appearance of new symptoms, or with any questions or concerns. Compliance is encouraged with any medications and follow up testing that is ordered. It is a privilege to be allowed the opportunity to participate in? your urological care.? Again, if you have any questions or concerns If you have any questions or concerns please do not hesitate to contact me. The office is [phone]. This note is constructed using voice recognition software. While every effort has been made to ensure accuracy healthcare analyst errors may have been included. Yours sincerely, AV Frazier Coding Level of Care Code Est Pt Level 3 (01980) Complex EM visit Add On G2211 Diagnoses Renal cyst, acquired N28.1 Recurrent UTI N39.0
== END 2025-09-29 09:27 | disposition home or self-care (01) ==
LOC: HO.HUSH 08:35
PROVIDERS: PCP Internal Medicine; Visit Provider Nurse Practitioner Family
DX: N28.1 Cyst of kidney, acquired (principal); N39.0 Urinary tract infection, site not specified
CPT/HCPCS: 99213; G2211

== ENCOUNTER → 2025-09-29 08:34 | Outpatient (BNVA) | payer MEDICARE, OTHER, SELFPAY | PROVIDERS: PCP Internal Medicine; Visit Provider Nurse Practitioner Family | DX: N39.0 Urinary tract infection, site not specified (principal); N28.1 Cyst of kidney, acquired | CPT/HCPCS: 81003; 99212 ==

== ENCOUNTER 2025-10-23 08:07 | Outpatient (AMB) | payer MEDICARE, OTHER, SELFPAY ==
--- NOTE | 2025-10-23 08:40 | A.OFFVIS_ITS ---
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 Allergies cat dander (cats) Allergy (Unknown, Verified 10/23/25 08:41) Unknown dog dander (dogs) Allergy (Unknown, Verified 10/23/25 08:41) Unknown Medication List - Last Reconciled 10/23/25 by Nirav Patel MD albuterol sulfate 90 mcg/actuation inhalation apixaban (Eliquis) 5 mg PO BID carvedilol 25 mg PO BID cetirizine (Zyrtec) 10 mg PO DAILY PRN estradiol 0.01%(0.1mg/gram) (Estrace) 1 g vaginal 3XW 90 days fluticasone furoate 100 mcg/actuation (Arnuity Ellipta) 1 inh inhalation DAILY fluticasone propionate 50 mcg/actuation 1 spray intranasal BID furosemide 20 mg PO DAILY rosuvastatin 10 mg PO BEDTIME [valacyclon PO] [vitamin d3 with calcium PO] HPI 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: Details: Start time: 8.35am, End time: 9.27am ?I spent 47 minutes speaking with the patient on the phone plus an additional 5 minutes reviewing and updating records for a total of 52 minutes HPI Comments Details: Previous weight loss efforts: WW, liquid diets, Phen-phen Wakes up: 7.30am, Sleeps: 11pm Breakfast: 10-11am (cottage cheese with fruits and walnuts, egg with toast) Lunch: 1pm (turkey sandwich) Dinner: 6pm (chicken, burger, steaks) Snacks: 4pm (pretzels), 8-9pm (snacks) Exercise: Gym at [facility] Beverages: Coffee: (1 cup/d wiht creamer), Tea: x3/wk (honey), Soda: (Lucinda water), Juice: none, ETOH: 3/wk (Vodka) [facility] Medical History (Updated 10/23/25 @ 08:50 by Nirav Patel MD) Uterine cancer DJD (degenerative joint disease) Atrial fibrillation status post cardioversion Asthma Hyperlipidemia Hypertension Sleep apnea treated with continuous positive airway pressure (CPAP) Morbid obesity Afib Recurrent UTI Acute cystitis with hematuria Renal cyst, acquired Surgical History History of cardiac ablation Hx of colonoscopy Hx of hysterectomy, total Hx of hernia repair Hx of total knee replacement History of surgery Family History Mother Hypertension Father Hypertension Brother Hypertension Social History Alcohol intake: current Patient Tobacco Use Status: Never used Tobacco Telehealth Telehealth Telehealth Platform: Telephone Location of provider rendering services: practice address Location of patient: address on file Patient Identification confirmed using: Name, : Yes Telehealth method: voice only Patient verbally consented to treatment: Yes Patient verbally consented to billing insurance company: Yes Patient informed of any privacy concerns related to visit: Yes Minutes spent on Phone/Video with Pt.: 52 Assessment & Plan Assessment & Plan (1) Morbid obesity: Code(s): E66.01 - Morbid (severe) obesity due to excess calories Category: Medical Plan: 1.? Plan for lap sleeve gastrectomy. If diaphragmatic or ventral hernias are present at time of surgery, these will be repaired laparoscopically as well. I emphasized the importance of close follow-up, adherence to instructions and good communication. The surgery does not replace the need to change your lifestlyle which is the cause of the obesity problem. The surgery provides the motivation to try again to change your lifestyle, it reduces the appetite and make the transition to a better lifestyle easier and doubles the amount of weight you would lose compared to doing the lifestyle change without the surgery. You will need to be on a liquid diet with protein shakes for 2 weeks before surgery to maximize weight loss and boost your nutritional status to recover better from surgery and also for the first two weeks after surgery to let the stomach heal before we introduce other foods. After the first 2 weeks we will introduce protein bars and soft foods like scrambled eggs, cottage cheese and yogurt and after the 6th week will introduce meat, fish and cooked vegetables in small amounts. Over time you should be able to eat everything in small amounts. Side effects like nausea, vomiting, heartburn or abdominal pain are not common in the practice unless you are not following in the practice. This operation requires lifetime commitment to following in our practice and communication with me. You will much less weight and experience side effects if you don?t communicate or not following in the practice. Complications are rare and in our practice is about 1/10 of the national average. However, you can develop bleeding that may require transfusion (hasn?t happened for year in the practice), you may from complications (we did not have any deaths in the practice) and infections. Infections are usually a result of breakdown in communication or not understanding or following directions correctly. They are difficult to treat, they can happen during the first 6 weeks, they may require to be in the hospital for weeks or even months, not being able to eat by mouth and you may have drains and surgeries to try and correct the issue. 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 2. Nutritional counseling. Start with one CELEBRATE REBUILD protein (buy online with the link I gave you) shake (ONE scoop in 8oz low fat unsweetened almond milk) at 8am-10am, 1 protein bar (CELEBRATE protein bars, buy at [facility], buy online with the link I gave you) ) at 11am-1pm, another CELEBRATE REBUILD protein shake (ONE scoop in 8oz low fat unsweetened almond milk) at 2pm- 4pm, dinner at 5pm (10 forks of protein and 10 forks of salad/vegetables) AND another Celebrate protein bar at 7pm-9pm, and HALF protein bar if you are hungry at 10pm-11pm. So you do 2 protein shakes, 2 to 2.5 protein bars and one meal per day. Meal to include lean meat (beef, fish, pork, turkey, chicken), or nepali yogurt, or egg whites, or beans with a salad with olive oil and fruits (berries, pears, apples, kiwi). Avoid salt, breads, potatoes, rice, pasta, desserts. 3. Each shake would be drunk slowly, like coffee in a period of 2 hours. 4. Cut each bar in 4 pieces and eat each piece in 30min ?to make each bar last 2 hours. 5. I emphasized the importance of measuring accurately the food portion and measure it when serving the food in plate 6. The meal portions include 10 full-size forks of meat and 10 full-size forks of salad. You always eat the meat portion but you can replace up to 5 forks for salad/vegetables with rice, potatoes or pasta, or a fruit ?if you like. The less you do it the better weight loss will be. 7. One full-size fork is what it can be scooped on the fork without falling aside and not what can be bit with the fork. Use regular forks like those you find in a typical restaurant. 8.? Please buy the body composition scale we discussed and send me weight measurements as soon as possible and then once a week. Always include your diet and exercise plan. 9. Emphasized the importance of monitoring the blood pressure daily in am when wakes up and two more times throughout the day. If systolic blood pressure is 110 mmHg, or less I explained to the patient that needs to notify me. Also I explained the symptoms of orthostatic hypotension (dizziness and lightheadedness) for which the patient also needs to notify me. 10. The best choice would be to purchase a stationary bike, elliptical or treadmill at home that can track calories. If you get one, please start stationary bike at a resistance level of 4.0 Increase level by 1.0 every 3 min to a max level of 10.0. Stay at this level for 3 min and then return to level 4.0 and repeat same steps until 300 calories are burned. Goal is to burn 2000 calories per week on exercise. 11. Goal is to lose at least 1.5-2lbs per week 12. Goal to lose 10% of your weight before surgery, which is about 28lbs. Ultimate weight goal: 260lbs before surgery 13. Please follow the diet plan exactly without any change. If you don't like something about the plan or you feel hungry you need to communicate with me so I can help you revise the plan. You should not change the plan yourself 14. To be scheduled for EGD to assess the stomach's anatomy. The possibility of biopsies was discussed. Patient needs to avoid use of NSAIDs and aspirin for 1 week prior to EGD. You must be on liquids only the day before your endoscopy. Risks of perforation and bleeding was discussed with the patient. This will be an outpatient procedure with IV sedation. Orders: Orders H Pylori Breath Test Today E66.01 - Morbid (severe) obesity due to excess calories, E78.5 - Hyperlipidemia, unspecified, G47.30 - Sleep apnea, unspecified, I10 - Essential (primary) hypertension, I48.91 - Unspecified atrial fibrillation, J45.909 - Unspecified asthma, uncomplicated Complete Blood Count Auto Diff Today E66.01 - Morbid (severe) obesity due to excess calories, E78.5 - Hyperlipidemia, unspecified, G47.30 - Sleep apnea, unspecified, I10 - Essential (primary) hypertension, I48.91 - Unspecified atrial fibrillation, J45.909 - Unspecified asthma, uncomplicated IRON PROFILE Today E66.01 - Morbid (severe) obesity due to excess calories, E78.5 - Hyperlipidemia, unspecified, G47.30 - Sleep apnea, unspecified, I10 - Essential (primary) hypertension, I48.91 - Unspecified atrial fibrillation, J45.909 - Unspecified asthma, uncomplicated Comprehensive Met. Panel Today E66.01 - Morbid (severe) obesity due to excess calories, E78.5 - Hyperlipidemia, unspecified, G47.30 - Sleep apnea, unspecified, I10 - Essential (primary) hypertension, I48.91 - Unspecified atrial fibrillation, J45.909 - Unspecified asthma, uncomplicated Zinc Today E66.01 - Morbid (severe) obesity due to excess calories, E78.5 - Hyperlipidemia, unspecified, G47.30 - Sleep apnea, unspecified, I10 - Essential (primary) hypertension, I48.91 - Unspecified atrial fibrillation, J45.909 - Unspecified asthma, uncomplicated Vitamin B1 Today E66.01 - Morbid (severe) obesity due to excess calories, E78.5 - Hyperlipidemia, unspecified, G47.30 - Sleep apnea, unspecified, I10 - Essential (primary) hypertension, I48.91 - Unspecified atrial fibrillation, J45.909 - Unspecified asthma, uncomplicated Vitamin A Today E66.01 - Morbid (severe) obesity due to excess calories, E78.5 - Hyperlipidemia, unspecified, G47.30 - Sleep apnea, unspecified, I10 - Essential (primary) hypertension, I48.91 - Unspecified atrial fibrillation, J45.909 - Unspecified asthma, uncomplicated TSH reflex Free T4 Today E66.01 - Morbid (severe) obesity due to excess calories, E78.5 - Hyperlipidemia, unspecified, G47.30 - Sleep apnea, unspecified, I10 - Essential (primary) hypertension, I48.91 - Unspecified atrial fibrillation, J45.909 - Unspecified asthma, uncomplicated Vitamin D 25-OH Total Today E66.01 - Morbid (severe) obesity due to excess calories, E78.5 - Hyperlipidemia, unspecified, G47.30 - Sleep apnea, unspecified, I10 - Essential (primary) hypertension, I48.91 - Unspecified atrial fibrillation, J45.909 - Unspecified asthma, uncomplicated US abdomen comp w elastography Today E66.01 - Morbid (severe) obesity due to excess calories, E78.5 - Hyperlipidemia, unspecified, G47.30 - Sleep apnea, unspecified, I10 - Essential (primary) hypertension, I48.91 - Unspecified atrial fibrillation, J45.909 - Unspecified asthma, uncomplicated Insulin Today E66.01 - Morbid (severe) obesity due to excess calories, E78.5 - Hyperlipidemia, unspecified, G47.30 - Sleep apnea, unspecified, I10 - Essential (primary) hypertension, I48.91 - Unspecified atrial fibrillation, J45.909 - Unspecified asthma, uncomplicated Hemoglobin A1c Today E66.01 - Morbid (severe) obesity due to excess calories, E78.5 - Hyperlipidemia, unspecified, G47.30 - Sleep apnea, unspecified, I10 - Essential (primary) hypertension, I48.91 - Unspecified atrial fibrillation, J45.909 - Unspecified asthma, uncomplicated Lipid Panel Today E66.01 - Morbid (severe) obesity due to excess calories, E78.5 - Hyperlipidemia, unspecified, G47.30 - Sleep apnea, unspecified, I10 - Essential (primary) hypertension, I48.91 - Unspecified atrial fibrillation, J45.909 - Unspecified asthma, uncomplicated Vitamin B12 and Folate Today E66.01 - Morbid (severe) obesity due to excess calories, E78.5 - Hyperlipidemia, unspecified, G47.30 - Sleep apnea, unspecified, I10 - Essential (primary) hypertension, I48.91 - Unspecified atrial fibrillation, J45.909 - Unspecified asthma, uncomplicated C Reactive Protein Today E66.01 - Morbid (severe) obesity due to excess calories, E78.5 - Hyperlipidemia, unspecified, G47.30 - Sleep apnea, unspecified, I10 - Essential (primary) hypertension, I48.91 - Unspecified atrial fibrillation, J45.909 - Unspecified asthma, uncomplicated Ferritin Today E66.01 - Morbid (severe) obesity due to excess calories, E78.5 - Hyperlipidemia, unspecified, G47.30 - Sleep apnea, unspecified, I10 - Essential (primary) hypertension, I48.91 - Unspecified atrial fibrillation, J45.909 - Unspecified asthma, uncomplicated XR chest 2V Today E66.01 - Morbid (severe) obesity due to excess calories, E78.5 - Hyperlipidemia, unspecified, G47.30 - Sleep apnea, unspecified, I10 - Essential (primary) hypertension, I48.91 - Unspecified atrial fibrillation, J45.909 - Unspecified asthma, uncomplicated ECG 12 lead EKG Today E66.01 - Morbid (severe) obesity due to excess calories, E78.5 - Hyperlipidemia, unspecified, G47.30 - Sleep apnea, unspecified, I10 - Essential (primary) hypertension, I48.91 - Unspecified atrial fibrillation, J 45.909 - Unspecified asthma, uncomplicated FL upper GI w air Today E66.01 - Morbid (severe) obesity due to excess calories, E78.5 - Hyperlipidemia, unspecified, G47.30 - Sleep apnea, unspecified, I10 - Essential (primary) hypertension, I48.91 - Unspecified atrial fibrillation, J45.909 - Unspecified asthma, uncomplicated Referrals Nutrition/Dietitian Referral E66.01 - Morbid (severe) obesity due to excess calories, E78.5 - Hyperlipidemia, unspecified, G47.30 - Sleep apnea, unspecified, I10 - Essential (primary) hypertension, I48.91 - Unspecified atrial fibrillation, J45.909 - Unspecified asthma, uncomplicated Behavioral Health Referral E66.01 - Morbid (severe) obesity due to excess calories, E78.5 - Hyperlipidemia, unspecified, G47.30 - Sleep apnea, unspecified, I10 - Essential (primary) hypertension, I48.91 - Unspecified atrial fibrillation, J45.909 - Unspecified asthma, uncomplicated
[2025-10-23 08:55] VITALS: BMI 51.0
== END 2025-10-23 09:28 | disposition home or self-care (01) ==
LOC: HO.HBS 08:07
PROVIDERS: PCP Internal Medicine; Visit Provider Surgery
DX: E66.01 Morbid (severe) obesity due to excess calories (principal); Z68.43 Body mass index [BMI] 50.0-59.9, adult
CPT/HCPCS: 99204

== ENCOUNTER 2025-10-31 09:25 | Outpatient (REF) | payer MEDICARE, OTHER, SELFPAY ==
--- OUTSIDE RECORDS SUMMARY | 2024-08-14 10:45 | XMS_ITS ---
Author Organization [facility] Address [address] [place] [address] Care Team Providers Care Transformer Shop Supervisor Name Role Phone ROSETTA MCCALL Primary Care [...] Unknown Encounters Encounter Location Date Provider Diagnosis [address] [address] 08/14/2024 ROSETTA MCCALL Essential (primary) hypertension I10 [...] Future Test Test Name Order Date Hemoglobin [id number] 08/09/2024 CBC, Platelet, w/o Differential-[id number] 0 08/09/2024 Albumin/Creatinine Ratio,Urine-315808 Lipid Panel-[id number] 08/09/2024 Hepatic Function Panel ([id number] 2023 BMP8+eGFR-[id number] 08/09/2024 Next Appt Details Follow Up: OV 6 months Labs pending EKG today, Reason: Provider Name:ROSETTA BRAMBILA, 03/09/2026 02:30:00 PM, [address] [place] [address], [phone], History and Physical Notes * HPI (History of Present Illness) Category Sub-Category Detail Notes Category Not es General Follow-up hyper tension. See review of systems below Progress Notes * LUPE MANN ADOB: [birth year] (70 yo F)Acc No.[id number]:08/14/2024 Progress Notes Patient: LUPE BANKS Provider: Dariela MCCALL M.D. :1955 A ge:69 Y S ex:Female Date:08/14/2024 Address:[address] [place], [place] [id number] Subjective: * Chief Complaints: * 4 2 6mo F/U * HPI: G eneral: Follow-up hypertension. See review of systems below. 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 Severe sleep apnea Hyperglycemia Atrial fibrillation cardiology Dr. 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 Morley Mammogram June [address] [...] Date & Time - 01/16/2024 08:41 AM)?ValueReference Range?[id number](<200) - MG/DL?ZLNAPPSBVXGF758(<150) - MG/DL?HDL CHOL77(>39) - MG/DL ?LDL CHOLESTEROL, MLUGBZHDZG19(0-130) - MG/DL ???Lab:LYME ANTIBODY W/REFLEX TO WESTERN [...] metabolism, unspecified L AB: CBC, Platelet, w/o Differential-103472 (Ordered for 08/09/2024) L AB: BMP8+eGFR-350269 (Ordered for 08/09/2024) L AB: Hemoglobin Q1w-204277 (Ordered for 08/09/2024) L AB: Albumin/Creatinine Ratio,Urine-878035 (Ordered for 08/09/2024) L AB: Lipid Panel-059792 (Ordered for 08/09/2024) L AB: Hepatic Function Panel ([id number] (Ordered for 08/09/2024) 3. T ype 2 diabetes mellitus without complications L AB: CBC, Platelet, w/o Differential-234018 (Ordered for 08/09/2024) L AB: BMP8+eGFR-102179 (Ordered for 08/09/2024) L AB: Hemoglobin L3w-252921 (Ordered for 08/09/2024) L AB: Albumin/Creatinine Ratio,Urine-427497 (Ordered for 08/09/2024) L AB: Lipid Panel-622374 (Ordered for 08/09/2024) L AB: Hepatic Function Panel ([id number] (Ordered for 08/09/2024) 4. G yris-esophageal reflux disease without esophagitis L AB: CBC, Platelet, w/o Differential-097301 (Ordered for 08/09/2024) L AB: BMP8+eGFR-988822 (Ordered for 08/09/2024) L AB: Hemoglobin S3t-161575 (Ordered for 08/09/2024) L AB: Albumin/Creatinine Ratio,Urine-571616 (Ordered for 08/09/2024) L AB: Lipid Panel-114071 (Ordered for 08/09/2024) L AB: Hepatic Function Panel [id number] (Ordered for 08/09/2024) 5. O ther asthma L AB: CBC, Platelet, w/o Differential-070881 (Ordered for 08/09/2024) L AB: BMP8+eGFR-154462 (Ordered for 08/09/2024) L AB: Hemoglobin N1u-726220 (Ordered for 08/09/2024) L AB: Albumin/Creatinine Ratio,Urine-109345 (Ordered for 08/09/2024) L AB: Lipid Panel-442604 (Ordered for 08/09/2024) L AB: Hepatic Function Panel [id number] (Ordered for 08/09/2024) 6. A trial fibrillation, unspecified type L AB: CBC, Platelet, w/o Differential-086880 (Ordered for 08/09/2024) L AB: BMP8+eGFR-601549 (Ordered for 08/09/2024) L AB: Hemoglobin H8p-122738 (Ordered for 08/09/2024) L AB: Albumin/Creatinine Ratio,Urine-886786 (Ordered for 08/09/2024) L AB: Lipid Panel-327357 (Ordered for 08/09/2024) L AB: Hepatic Function Panel ([id number] (Ordered for 08/09/2024) I maging: EKG * Procedure Codes: 9 3000 Electrocardiogram, [id number] Complex e/m visit add on * Follow Up: O V 6 months Labs pending EKG today Billing Information: * Procedure Codes: 30406 Electrocardiogram, complete. G2211 Complex e/m visit add on. * Electronic signature of LENO MCCALL MD on 10/31/2025 at 09:28 AM EST Sign off status: Pending * Provider: Dariela MCCALL M.D. Date: Generated for Charlotte ivory/Willem/Matthewitting on: 01/01/2025 09:28 AM EST
--- OUTSIDE RECORDS SUMMARY | 2025-09-10 05:30 | XMS_ITS ---
Author Organization [facility] Address [address] [place] [address] Care Team Providers Care Wild Life Photographer Name Role Phone Jared López MD Primary Care Provider Unavail able Black, Zara Unavailable [phone] Medications Medication SIG (Take, Route, Frequency, Duration) [...] Negative Encounters Encounter Location Date Provider Diagnosis [facility] Amilcar [address] [place] [address] 09/10/2025 Zara Tavarez Plan Of Treatment Next Appt Details Provider Name:Zara Tavarez , 12/14/2025 10:30:00 AM, [address] [place] [address], [phone], Provider Name:Zara Tavarez , 12/31/2025 02:45:00 PM, [address] [place] [address], [phone], Progress Notes * Poornima MANN ADOB: [birth year] (70 yo F)Acc No.[id number]:09/10/2025 Progress Notes Patient: Poornima BANKS Provider: Mahesh Tavarez DPM :1955 A ge:70 Y S ex:Female Date:09/10/2025 Address: [address], [place], [phone] Pcp:Jared López MD Subjective: * Chief [...] enies. C ardiovascular: Pacemaker d enies. M VAULT CLERK d enies. W PW d enies. C [...] DPM Date: Generated for Charlotte ivory/Willem/Hesham on: 01/01/2025 09:28 AM EST
--- OUTSIDE RECORDS SUMMARY | 2025-10-28 23:59 | XMS_ITS | Continuity of Care Document ---
Author Organization [facility] Address [address] [place] [address]- Care Team Providers Care Cullet Washer Name Role Phone Jared López MD Primary Care Physician [phone] Encounter [facility] Date(s): 09/28/25 - 10/28/[address] [address]- Encounter Type: Triage Allergies, Adverse Reactions, Alerts No Known Allergies Medications Arnuity Ellipta 100 mcg inhalation powder 1 inhalation = 100 mcg, Inhalation, Every 24 hours, # 3 each, 3 Refills, Maintenance, 09/23/25 9:54:00 AM EST, Powder, [id number], asthma j45.9, 160, cm, 09/23/25 9:36:00 EST, Height Start Date: 09/23/25 Stop Date: 09/18/26 Status: Ordered Medication Dispense Status: Completed Quantity: 3.0 Unit: each Total Allowed Fills: 4 Fills Dispensed: 0 Arnuity Ellipta 100 mcg inhalation powder 1 inhalation = 100 mcg, Inhalation, Every 24 hours, # 1 each, 5 Refills, Maintenance, 09/29/25 3:52:00 PM EST, Powder, [id number], asthma j45.9, 160, cm, 09/23/25 9:36:00 EST, Height Start Date: 09/29/25 Stop Date: 03/28/26 Status: Ordered Medication Dispense Status: Completed Quantity: 1.0 Unit: each Total Allowed Fills: 6 Fills Dispensed: 0 Calcium/Vit D Calcium/Vit D, 1,200 mg, By Mouth, 0 Refills, Maintenance, 09/23/25 9:44:00 AM EST Start Date: 09/23/25 Status: Ordered Medication Dispense Status: Completed Total Allowed Fills: 1 Fills Dispensed: 0 carvedilol 25 mg oral tablet TAKE 1 TABLET BY MOUTH TWICE DAILY WITH MEALS Start Date: 08/26/24 Status: Ordered Medication Dispense Status: Completed Total Allowed Fills: 1 Fills Dispensed: 0 CPAP Machine See Instructions, # 1 each, Refills 11, Tot. Refills 11, Maintenance, CPAP 12cm H2O with heated humidification, mask, tubing, filters, headgear, chin strap, and water chamber. Misha provider access to wireless compliance data Length of need: Lifetime 99 months Diagnosis: SILVIO G47.33 current machine not working., 04/24/23 11:57:00 AM EDT, Supply Start Date: 04/24/23 Status: Ordered Medication Dispense Status: Completed Quantity: 1.0 Unit: each Total Allowed Fills: 12 Fills Dispensed: 0 CPAP Setting change CPAP Setting change, See Instructions, # 1 each, Refills 0, Tot. Refills 0, Maintenance, CPAP settings Change to auto CPAP 8-14 cm and ramp 5 cm for 30 mins. Also increase humidity sttings. Please assign to [employer] profile to [facility]., 07/30/23 10:43:00 AM EDT, Supply Start Date: 07/30/23 Status: Ordered Medication Dispense Status: Completed Quantity: 1.0 Unit: each Total Allowed Fills: 1 Fills Dispensed: 0 Indications: Obstructive sleep apnea (adult) (pediatric); diltiazem 240 mg/24 hours oral capsule, extended release 240 mg, 1, capsule, By Mouth, Daily, Refills 0, Maintenance, 10/28/22 11:01:00 AM EST, Partial fillupon patient request if the prescription is for a schedule II opioid drug. Start Date: 10/28/22 Status: Ordered Medication Dispense Status: Completed Total Allowed Fills: 1 Fills Dispensed: 0 Eliquis 5 mg oral tablet 0 Refills, Maintenance, 08/26/24 9:48:00 AM EDT, Partial fill upon patient request if the prescription is for a schedule II opioid drug. Start Date: 08/26/24 Status: Ordered Medication Dispense Status: Completed Total Allowed Fills: 1 Fills Dispensed: 0 fluticasone 50 mcg/inh nasal spray See Instructions, SPRAY 1 SPRAY INTO EACH NOSTRIL TWICE A DAY, # 48 mL, 1 Refills, Maintenance, 08/29/23 4:48:00 PM EDT, [facility] STORE [id number], 90, SPRAY 1 SPRAY INTO EACH NOSTRIL TWICE A DAY, 160, cm, 07/30/23 8:13:00 EDT, Height, 132, kg, 10/27/22 9:39:00 EST, Dry Weight Start Date: 08/29/23 Status: Ordered Medication Dispense Status: Completed Quantity: 48.0 Unit: mL Total Allowed Fills: 1 Fills Dispensed: 0 ibuprofen 600 mg oral tablet 1 tablet = 600 mg, By Mouth, Every 6 hours, PRN as needed for pain, # 30 tablet, 0 Refills, Maintenance, 07/20/11 7:44:22 AM EDT, Tablet Start Date: 07/20/11 Status: Ordered Medication Dispense Status: Completed Quantity: 30.0 Unit: tablet Total Allowed Fills: 1 Fills Dispensed: 0 Lasix 20 mg oral tablet 20 mg, 1, tablet, By Mouth, Daily, # 14 tablet, Refills 0, Tot. Refills 0, Maintenance, 05/14/22 11:22:00 AM EDT, Route to Pharmacy Electronically, [facility] #[id number], Partial fill upon patient requestif the prescription is for a schedule II opioid drug., 160, cm, 05/14/22 9:31:00 EDT, Height, 132, kg, 05/14/22 9:31:00 EDT, Dry Weight Start Date: 05/14/22 Stop Date: 05/28/22 Status: Ordered Medication Dispense Status: Completed Quantity: 14.0 Unit: tablet Total Allowed Fills: 1 Fills Dispensed: 0 Mask Fitting Mask Fitting, See Instructions, # 1 each, Refills 0, Tot. Refills 0, Maintenance, Please schedule aMask fitting, 07/30/23 10:49:00 AM EDT, Supply Start Date: 07/30/23 Status: Ordered Medication Dispense Status: Completed Quantity: 1.0 Unit: each Total Allowed Fills: 1 Fills Dispensed: 0 Mask Fitting Mask Fitting, See Instructions, # 1 each, Refills 0, Tot. Refills 0, Maintenance, mask fitting for her CPAP, she wants to try Airfit F 30., 08/26/24 12:12:00 PM EDT, Supply Start Date: 08/26/24 Status: Ordered Medication Dispense Status: Completed Quantity: 1.0 Unit: each Total Allowed Fills: 1 Fills Dispensed: 0 Multivitamin By Mouth, Daily, 0 Refills, Maintenance, 08/24/22 2:58:00 PM EDT, Partial fill upon patient requestif the prescription is for a schedule II opioid drug. Start Date: 08/24/22 Status: Ordered Medication Dispense Status: Completed Total Allowed Fills: 1 Fills Dispensed: 0 rosuvastatin 10 mg oral tablet 0 Refills, Maintenance, 08/26/24 9:49:00 AM EDT, Partial fill upon patient request if the prescription is for a schedule II opioid drug. Start Date: 08/26/24 Status: Ordered Medication Dispense Status: Completed Total Allowed Fills: 1 Fills Dispensed: 0 ValACYclovir = 500 mg, By Mouth, prn, 0 Refills, Maintenance, 09/23/25 9:43:00 AM EST, Partial fill upon patientrequest if the prescription is for a schedule II opioid drug. Start Date: 09/23/25 Status: Ordered Medication Dispense Status: Completed Total Allowed Fills: 1 Fills Dispensed: 0 Ventolin HFA 108 mcg/inh inhalation aerosol with adapter 2 puffs, Inhalation, 4 times a day, # 18 each, 10 Refills, Maintenance, 10/09/25 9:29:00 AM EST, [facility] STORE [id number], 160, cm, 09/23/25 9:36:00 EST, Height Start Date: 10/09/25 Status: Ordered Medication Dispense Status: Completed Quantity: 18.0 Unit: each Total Allowed Fills: 1 Fills Dispensed: 0 Problem List Condition Confirmation Course Effective Dates Status H ealth Status Informant Adenocarcinoma of endometrium Confirmed Active Asthma Confirmed Active Esophageal reflux (GERD) Confirmed Active Obstructive sleep apnea syndrome Confirmed Active Severe obesity Confirmed Active Social History Social History Type Response Smoking Status Never smoker; Tobacc o user in household: No entered on: 02/12/14 Sex Sex Representation Female (finding) Patient Care team information Care Team Personnel Name: Jared López MD Position: S Outreach Member Role: PCP Address: [address] [place] [address]- [place] Telecom: Care Team Related Persons Name: KEL MAIER Name: CHRISTA SCHILLING Insurance Providers Guarantor name: LUPE MANN Health Plan Information #: 1 Payer: MEDICARE B Payer Identifier: NA Member Number: [id number] Group Number: NA Subscriber Identifier: NA Relationship to Subscriber: self Coverage Type: NA Coverage Verification Date: NA Telecom: NA Address: NA Health Plan Information #: 2 Payer: [employer] [facility] [employer] Payer Identifier: NA Member Number: [id number] Group Number: [id number] Subscriber Identifier: NA Relationship to Subscriber: self Coverage Type: Medicare Other Coverage Verification Date: NA Telecom: Address: NA
--- OUTSIDE RECORDS SUMMARY | 2025-10-29 23:59 | XMS_ITS | Continuity of Care Document ---
Author Organization [facility] Address [address] [place] [address]- Care Team Providers Care Hose Mender Name Role Phone Jared López MD Primary Care Physician [phone] Encounter [facility] Date(s): 09/29/25 - 10/29/25 [facility] [address] [place] [address] Encounter Type: Triage Allergies, Adverse Reactions, Alerts [...] Also increase humidity sttings. Please assign to [employer] profile to [facility]., 07/30/23 10:43:00 AM EDT, [...] 1 Refills, Maintenance, 08/29/23 4:48:00 PM EDT, [facility] STORE 13175, 90, SPRAY 1 SPRAY INTO EACH NOSTRIL [...] 11:22:00 AM EDT, Route to Pharmacy Electronically, [facility]/pharmacy #[id number], Partial fill upon patient requestif the prescription [...] 10 Refills, Maintenance, 10/09/25 9:29:00 AM EST, [facility] STORE [address]9890, 160, cm, 09/23/25 9:36:00 EST, Height Start [...] Team Personnel Name: Jared López MD Position: [facility] Outreach Member Role: PCP Address: [address] [place] [address] [place] [address]- [place] Telecom: Care Team Related Persons Name: KEL MAIER Name: CHRISTA SCHILLING Insurance Providers Guarantor name: LUPE MANN Health Plan Information #: 1 Payer: MEDICARE B Payer Identifier: NA Member Number: [id number] Group Number: NA Subscriber Identifier: NA Relationship to Subscriber: self Coverage Type: NA Coverage Verification Date: NA Telecom: NA Address: NA Health Plan Information #: 2 Payer: [facility] Payer Identifier: NA Member Number: [id number] Group Number: [id number] Subscriber Identifier: NA Relationship to Subscriber: self Coverage Type: Medicare Other Coverage Verification Date: NA Telecom: NA Address:
--- OUTSIDE RECORDS SUMMARY | 2025-10-31 09:28 | XMS_ITS | Data Portability ---
Author Organization [place] [facility] Address [address] [place] [address] Care Team Providers Care Automotive Service Director Name Role Phone ROSETTA MCCALL Primary Care Provider ROSETTA MCCALL Referring Provider Assessment Encounter Date Assessment Date Assessment LastModified by Organization Details LastModified Time 11/06/2023 11/06/2023 Assessment: Bilateral khusm-uvbzyqz-risz -left knee pain in the setting of [...] available 11/06/2023 14:16:42 01/29/2024 01/29/2024 Assessment: Bilateral pgarb-atdftkm-pavm -left knee pain in the setting of [...] available 01/29/2024 13:24:00 05/27/2024 05/27/2024 Assessment: Bilateral qrkvu-duxvzle-bjic -left knee pain in the setting of [...] Organization Detail LastModifiedTime 11/06/2011/06/2023 x-ray Knee INTERFACE [facility] [address] [facility], [place], [address], 11/06/2023 13:58:44 Result Notes None recorded. 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 Procedures Surgical History Date Name Laterality Status Provider Name and Address Organization Details Recorded Time 024 Test Interpretation completed ISRAEL MCKEON [address] [place], [address], [facility] 01/29/2024 13:21:52 023 SMN Xray Knee (4) completed ISRAEL ORTIZ [address] [place], [address], [facility] 11/06/2023 13:58:27 Imaging Results None recorded. Procedure Notes None recorded. Medical Equipment None Reported. Allergies Allergen ID Allergen Name Allergen Category Reaction Reaction Severity Criticality Documentation Date Start Date Code Code System Note Provider Name and Address Organization Details Recorded Time 23599 cat dander environme nt Not available Not available Not available 11/07/2023 Catia ray [facility] 3 12:20:08 04152 Canis lupus familiari s extract environme nt Not available Not available Not available 11/07/2023 35986 4 RxNorm Catia ray [facility] 3 12:20:08 24951 house dust mite environme nt Not available Not available Not available 11/07/2023 Catia ray [facility] 3 12:20:08 Medications Name Sig Start Date [...] Details Last Updated DateTime 01/26/2024 160 cm 063009.1 g Not Available Capsule 01/10 14:37:17 Date Recorded Body height Body weight Provider Name and Address Organization Details Last Updated DateTime 05/25/2024 160 cm 566931.9 g Not Available Capsule 05/12 08:46:47 Date Recorded Body height Body weight Provider Name and Address Organization Details Last Updated DateTime 05/27/2024 160 cm 826025 g Not Available Capsule 05/27 20:32:56 Social [...] ICD10 Code Diagnosis IMO Codes Diagnosis Note [id number] TRES TOBIAS MD [facility] [place] [address] [employer] [place] [address] 11/06/2023 13:20:25 11/07/2023 09:55:18 Pain of bilateral knee regions 5063818419 85986 M25.561 610689 TRES TOBIAS MD [facility] [place] [address] [employer] [place] [address] 01/29/2024 12:54:06 01/30/2024 14:51:13 Pain of bilateral knee regions 9883132928 34395 M25.561 Lumbar radiculopathy 128 504477 M54.16 [id number] TRES TOBIAS MD [facility] [place] [address] [address] 05/27/2024 10:40:13 05/27/2024 11:40:14 Pain of bilateral knee regions 4379387269 05986 M25.561 Lumbar radiculopathy 128 832196 M54.16 Health Concerns Section Related Observation LastModified by Organization Detai ls LastModified Time None Recorded Concern Status LastModified by Organization Details LastModified Time None Recorded Advance Directives Directive None Recorded Payers Insurance Date Sequence Insurance Name Policy Number Policy Johnson Covered Member ID Johnson Member ID Guarantor Name 05/29/2024 [employer] - SPECIALITY CLAIMS (MEDICARE DME REGION A) Poornima Waggoner [id number] Poornima A Lankin 05/27/2024 2 [facility] - PLAN 1 (MEDICARE SUPPLEMENT) [id number] Poornima Waggoner [id number] Poornima Waggoner 11/06/[address] [facility] - OPEN ACCESS PLUS [id number] Poornima Waggoner [id number] Poornima Waggoner 11/06/2023 1 [facility] [id number] Poornima Waggoner [id number] Poornima Waggoner 05/27/2024 1 MEDICARE [place]: [facility] Poornima Waggoner [id number] Poornima Waggoner Notes Date Note Type Note Provider Name and Address Organization Details Recorded Time 11/06/2023 text/html SMN KneeReported by PatientROS as noted in the HPI Diagnosis: Bilateral knee pain Previous Surgeries: Bilateral multi ligament surgeries by [facility] total knee arthroplasty [address] [...] further orthopedic evaluation. ISRAEL ORTIZ [address] [place], [address], [facility] 11/06/2023 14:17:32 01/29/2024 text/html SMN KneeReported by PatientROS as noted in the HPI Diagnosis: Bilateral knee pain Previous Surgeries: Bilateral multi ligament surgeries by [facility] total knee arthroplasty [address] [...] knees if possible. ISRAEL MCKEON [address] [place], [address], [facility] 01/29/2024 13:24:21 05/27/2024 text/html SMN KneeReported by PatientROS as noted in the HPI Diagnosis: Bilateral knee pain Previous Surgeries: Bilateral multi ligament surgeries by [facility] total knee arthroplasty [address] [...] pain picture. TRES TOBIAS MD [address] [place], [address], [facility] 05/27/2024 12:06:25 OBGyn Episode No OBEpisode recorded.
--- OUTSIDE RECORDS SUMMARY | 2025-10-31 09:29 | XMS_ITS | Clinical Summary ---
Author Organization [address] [place] [address] [place] [phone] Phone Care Team Providers Care President [employer] Name Role Phone Jared López MD Primary Care Provider [phone] Allergies Active Allergy Reactions Criticality Noted Date Comments House Dust Mite 05/18/2022 Other 05/18/2022 Seasonal Allergies Medications albuterol sulfate (PROAIR HFA INHL) Inhale into the lungs as needed. Active budesonide-formot Lizet (SYMBICORT) 80-4.5 mcg/actuation inhaler Inhale 2 Puffs into the lungs as needed. Active furosemide (LASIX) 20 mg tablet Take 1 tablet (20 mg total) by mouth 1 (one) time each day. 3 Active rosuvastatin (CRESTOR) 10 mg tablet Take 1 tablet (10 mg total) by mouth 1 (one) time each day. Active multivit-min/iron /folic acid/K (ADULTS MULTIVITAMIN ORAL) Take by mouth daily. Active fluticasone furoate (Arnuity Ellipta) 50 mcg/actuation blister with device inhaler Inhale 1 puff by mouth 1 (one) time each day. Active Eliquis 5 mg tablet TAKE 1 TABLET TWICE A DAY 180 tablet 3 5 Active carvediloL (COREG) 25 mg tablet Take 1 tablet (25 mg total) by mouth 2 (two) times a day with meals. 180 tablet 3 5 Active carvediloL (COREG) 25 mg tablet TAKE 1 TABLET BY MOUTH TWICE A DAY WITH FOOD 180 tablet 3 5 10/12/20 25 Discontinu ed(Reorder ) Active Problems Problem Noted Date Diagnosed Date Primary hypertension 02/25/2025 Assessment & Plan (02/25/2025 11:24 AM EDT): Patient is noted to be hypertensive during exam today. Initially her systolic blood pressure was 160. Later during our visit it did come down to 146/84. Ideally goal would be less than 130/80. We did discuss diet and lifestyle modification for the next 3 months as well as monitoring her blood pressure at home. She will follow- up in 4 months and we can further evaluate whether or not introduction of another antihypertensive medication is warranted to further control blood pressure. Educated on the importance of diet lifestyle to help further assist in reducing blood pressure. The patient was encouraged to follow low-salt low-fat diet, make purposeful strides towards weight loss, and engage in routine aerobic exercise as tolerated. Palpitations 06/30/2022 Assessment & Plan (06/26/2025 1:13 PM EDT): She will continue on her current dose of carvedilol 25 mg twice daily. Discussed triggers of palpitations such as increased caffeine or alcohol intake, infection, dehydration and untreated sleep apnea. States compliance with her CPAP. Assessment & Plan (02/25/2025 11:24 AM EDT): Please see care plan for atrial fibrillation regarding the potential to update monitoring. Secondary hypercoagulable state 06/30/2022 Mild pulmonary hypertension 05/19/2022 Cardiac murmur 05/18/2022 Assessment & Plan (06/26/2025 1:13 PM EDT): Echocardiogram recently updated with stable measurements. Patient euvolemic. Will continue with surveillance echocardiograms to further evaluate for any valvular abnormalities. Nonrheumatic aortic valve stenosis 05/18/2022 Overview (12/04/2024): Last Assessment & Plan: Murmur appreciated upon exam today. Patient does endorse increase in peripheral edema well-managed with daily dosing of Lasix. She denies any chest pain, back pain or syncope. I will update surveillance echocardiogram to further evaluate for progression of aortic valve stenosis. Assessment & Plan (02/25/2025 11:24 AM EDT): We will update surveillance echocardiogram in May to further evaluate for progression of aortic stenosis. She does endorse some shortness of breath as well as mild peripheral edema. She will continue on her current dose of furosemide. Orders: Transthoracic echocardiogram (TTE) complete with PRN contrast, bubble, strain, and 3D order panel; Future perflutren lipid microsphere (DEFINITY) 1.3 mL in sodium chloride 0.9% 8.7 mL injection Obesity 05/18/2022 Overview (12/04/2024): Last Assessment & Plan: Patient informs me she is making purposeful strides towards weight loss and has lost a few pounds since her last office visit. She has been commended for her efforts. She will continue to decrease her caloric intake and to engage in routine aerobic exercise. Assessment & Plan (06/26/2025 1:13 PM EDT): She has been trying to make purposeful strides towards weight loss however has been unsuccessful. As outlined above she tried Mounjaro in the past however did have issues with significant constipation. Unfortunately her PCP did prescribe Zepbound however her insurance has denied this. I did recommend she reach out to [place] [facility] services . Assessment & Plan (02/25/2025 11:24 AM EDT): Patient is meeting with her PCP tomorrow to further evaluate whether or not she would be a candidate to trial a different GLP-1 as she did not have much success on Mounjaro. Again counseled on diet and lifestyle modification to help further reduce weight. Would not be unreasonable as this would reduce her overall cardiovascular risks. SILVIO on CPAP 05/18/2022 Assessment & Plan (02/25/2025 11:24 AM EDT): States compliance with her CPAP. Atrial fibrillation 05/09/2022 Overview (12/04/2024): Last Assessment & Plan: Patient denies perception of recurrence of arrhythmia. She continues to be anticoagulated on full dose of Eliquis as her weight is greater than 60 kg and her age is less than 80. Her [id number] score is 2 for age and gender modifier. Educated on the risks and benefits of continuing with anticoagulation including increased risk for hemorrhage and decreased risk for stroke. Encouraged to seek emergent medical attention should she sustain a fall involving head strike. She understands these risks and agrees to continue. She will continue on her current dose of carvedilol. Assessment & Plan (06/26/2025 1:13 PM EDT): Denies recurrence of arrhythmia. She will continue on carvedilol 25 mg twice daily. She is currently on full dose Eliquis as her age is less than 80 years and her weight is greater than 60 kg. Educated on risks and benefits of continuing with anticoagulation including increased risk for hemorrhage and decreased risk for stroke. Encouraged to seek emergent medical attention should the patient sustain a fall involving a head strike. The patient understands these risks and agrees to continue. Patient is interested in pursuing Watchman procedure as Eliquis is not cost effective and if she has concerns of bleeding. She will meet with our EP service to further discuss the Watchman procedure. Orders: ECG 12 lead Assessment & Plan (02/25/2025 11:24 AM EDT): Patient denies perception of recurrence of arrhythmia. She continues to be anticoagulated on full dose of Eliquis as her weight is greater than 60 kg and her age is less than 80. Her [id number] score is 2 for age and gender modifier. Educated on the risks and benefits of continuing with anticoagulation including increased risk for hemorrhage and decreased risk for stroke. Encouraged to seek emergent medical attention should she sustain a fall involving head strike. She understands these risks and agrees to continue. She will continue on her current dose of carvedilol. We did discuss triggers of atrial fibrillation including increased caffeine or alcohol intake, dehydration, infection and untreated sleep apnea. Patient does endorse feeling some sort of irregularity specifically at night when she is laying on her left side. The symptoms are not reminiscent to her atrial fibrillation and at this time were not bothersome. We did discuss the potential of updating a long-term monitor to further evaluate for any other atrial arrhythmias or ventricular arrhythmias that could be causing the symptoms. The patient will reach out to our office should she decide to move forward with monitoring. Left bundle branch block 05/09/2022 Surgical History Surgery Date Site/Laterality Comments KNEE ARTHROSCOPY PROCEDURE: [facility] ARTHROSCOPY AID TX SPINE&/FX KNEE W/O FIXJ TOTAL KNEE ARTHROPLASTY PROCEDURE: [facility] ARTHRP KNE CONDYLE&PLATU MEDIAL&LAT COMPARTMENTS OTHER SURGICAL HISTORY PROCEDURE: [facility] TOTAL ABDOMINAL HYSTERECT W/WO RMVL TUBE OVARY OTHER SURGICAL HISTORY PROCEDURE: HISTORY OTHER; COMMENT: Hernia repair OTHER SURGICAL HISTORY PROCEDURE: [facility] REPAIR PRIMARY OPEN/PRQ RUPTURED ACHILLES TENDON HYSTERECTOMY 2010 Medical History Medical History Date Comments Secondary hypercoagulable st ate (CMS/HCC V24) DX:Secondary hypercoagulable state (HCC) Obesity DX:Obesity Asthma DX:Asthma Borderline diabetes mellitus DX: Borderline diabetes mellitus Family History Medical History Relation Name Comments Pancreatic cancer Father Coronary artery disease Mother Diabetes Mother Relation Name Status Comments Father Mother Social History Tobacco Use Types Packs/Day Years Used Date Smoking Tobacco: Never Smokeless Tobacco: Never Alcohol Use Standard Drinks/Week Comments Yes 0 (1 standard drink = 0.6 oz pur e alcohol) occasional Comments No Sex and Gender Information Value Date Recorded Sex Assigned at Female 03/05/2025 9:35 AM EDT Legal Sex Female 6:04 PM EST Gender Identity Female 03/05/2025 9:35 AM EDT Sexual Orientation Straight 03/05/2025 9: 35 AM EDT Last Filed Vital Signs Vital Sign Reading Time Taken Comments Blood Pressure 118/74 06/26/2025 11:11 AM EDT Pulse 73 06/26/2025 11:11 AM EDT Temperature - - Respiratory Rate - - Oxygen Saturation 96% 06/26/2025 11:11 AM EDT Inhaled Oxygen Concentration - - Weight 133 kg (293 lb 6.4 oz) 06/26/2025 11:11 A M EDT Height 160 cm (5' 3 ) 06/26/2025 11:11 AM EDT Body Mass Index 51.97 06/26/2025 11:11 AM EDT Plan of Treatment Health Maintenance Due Date Last Done Comments Colorectal Cancer Screening: Colonoscopy 1957 DTaP,Tdap,and Td Vaccines (1 - Tdap) 1976 Cholesterol Screening (Lipid Panel) 10/21/2022 Falls Risk Assessment 10/21/2022 Hepatitis C Screening 10/21/2022 Medicare Annual Wellness Visit 10/21/2022 Social Influencers of Health Screening 10/21/2022 Hypertension/CHF/CAD Annual BMP Blood Test 12/16/2023 Depression Screening 11/12/2024 COVID-19 Vaccine ( season) 2025 10/31/2021, 04/07/2021, 03/17/2021 Influenza Vaccine (#1) 2025 4, 10/15/2023, 08/31/2022, Additional history exists Breast Cancer Screening 04/16/2027 04/16/20 25, 06/12/2023, 06/07/2022, Additional history exists Osteoporosis Screening (Bone Density Screening) 04/16/2035 04/16/2025, 05/31/2021 Zoster Vaccines Completed 05/10/2021, 02/24/2021 Pneumococcal Vaccine: 50+ Years Completed 08/15/2022 RSV Immunization Adult Patients Completed 08/29/2023 HIB Vaccines Aged Out No longer eligi ble based on patient's age to complete this topic HPV Vaccines Aged Out No longer eligi ble based on patient's age to complete this topic Hepatitis A Vaccines Aged Out No long er eligible based on patient's age to complete this topic Hepatitis B Vaccines Aged Out No long er eligible based on patient's age to complete this topic IPV Vaccines Aged Out No longer eligi ble based on patient's age to complete this topic MMR Vaccines Aged Out No longer eligi ble based on patient's age to complete this topic Meningococcal ACWY Vaccine Aged Out N o longer eligible based on patient's age to complete this topic Meningococcal B Vaccine Aged Out No l onger eligible based on patient's age to complete this topic RSV Immunization Patients Under 20 months Aged Out No longer eligible based on patient's age to complete this topic Varicella Vaccines Aged Out No longer eligible based on patient's age to complete this topic Procedures Procedure Name Priority Date/Time Associated Diagnosis Comments BD BONE DENSITY DXA AXIAL SKELETON Routine 04/16/2025 9:03 AM EDT Osteoporosis, unspecified osteoporosis type, unspecified pathological fracture presence MG MAMMO DIGITAL SCREENING W MAHESH BILAT Routine 04/16/2025 8:43 AM EDT Encounter for screening mammogram for malignant neoplasm of breast from Last 3 Months or Most Recently Relevant to Health Maintenance Results * BD Bone Density DXA Axial Skeleton (04/16/2025 9:03 AM EDT) Anatomical Region Laterality Modality Wrist, Hip, L-spine Bone Densito metry 04/16/2025 11:3 5 AM EDT Impressions 04/16/2025 11:37 AM EDT 1. Osteopenia. There has been an increase of 0.7% in bone mineral density in the lumbar spine since the prior examination of 05/30/2021. There has been a decrease of 3.8% in bone mineral density in the right femur and a decrease of 3.3% in bone mineral density in the left femur. 2. FRAX analysis yields a 10-year probability of major osteoporotic fracture of 7.2% and a 10-year probability of hip fracture of 0.7%. Code 42616 -------- FINAL REPORT -------- Dictated By: Oneil Urbano Dictated Date: 04/16/2025 11:35 ET Assigned Physician: Oneil Urbano Reviewed and Electronically Signed By: Oneil Urbano Signed Date: 04/16/2025 11:37 ET Workstation ID: [id number] Transcribed By: Self Edit Transcribed Date: 04/16/2025 11:35 ET Narrative 04/16/2025 11:37 AM EDT HISTORY: The patient is a 69-year-old postmenopausal female with clinical concern for metabolic bone disease. FINDINGS: Dual energy x-ray absorptiometry of the lumbar spine and femurs is performed. The mean bone mineral density at L1-2 is 1.400 gm/cm2 which is 120% of that of young normals and 126% of that of age matched controls. This yields a T-score of 2.0 and a Z-score of 2.4 and there is therefore no evidence of osteoporosis or osteopenia here. The mean bone mineral density of the femurs bilaterally is 1.101 gm/cm2 which is 109% of that of young normals and 117% of that of age matched controls. This yields a T-score of 0.7 and a Z-score of 1.3 and there is therefore no evidence of osteoporosis or osteopenia here. However, the T-score of the right femoral neck is -1.3 which is diagnostic of osteopenia. Procedure Note Oneil Urbano MD - 04/16/2025 HISTORY: The patient is a 69-year-old postmenopausal female with clinicalconcern for metabolic bone disease. FINDINGS: Dual energy x-ray absorptiometry of the lumbar spine and femursis performed. The mean bone mineral density at L1-2 is 1.400 gm/cm2 whichis 120% of that of young normals and 126% of that of age matched controls.This yields a T-score of 2.0 and a Z-score of 2.4 and there is thereforeno evidence of osteoporosis or osteopenia here. The mean bone mineral density of the femurs bilaterally is 1.101 gm/dw9jzszz is 109% of that of young normals and 117% of that of age matchedcontrols. This yields a T-score of 0.7 and a Z-score of 1.3 and there istherefore no evidence of osteoporosis or osteopenia here. However, theT-score of the right femoral neck is -1.3 which is diagnostic ofosteopenia. IMPRESSION: 1. Osteopenia. There has been an increase of 0.7% in bone mineral densityin the lumbar spine since the prior examination of 05/30/2021. There hasbeen a decrease of 3.8% in bone mineral density in the right femur and adecrease of 3.3% in bone mineral density in the left femur. 2. FRAX analysis yields a 10-year probability of major osteoporoticfracture of 7.2% and a 10-year probability of hip fracture of 0.7%. Code 28144 -------- FINAL REPORT -------- Dictated By: Oneil Urbano Dictated Date: 04/16/2025 11:35 ET Assigned Physician: Oneil Urbano Reviewed and Electronically Signed By: Oneil Urbano Signed Date: 04/16/2025 11:37 ET Workstation ID: [id number] Transcribed By: Self Edit Transcribed Date: 04/16/2025 11:35 ET us Jared López MD IMG DXA PROCEDURES Final Res ult * MG Mammo Digital Screening w Mahesh bilat (04/16/2025 8:43 AM EDT) Anatomical Region Laterality Modality Breast Bilateral Mammography 04/16/2025 9:05 AM EDT Impressions 04/16/2025 9:38 AM EDT No mammographic evidence of malignancy. No suspicious interval change. A negative mammogram in the presence of a clinically suspicious palpable abnormality does not preclude the possibility of malignancy or alter the indications for biopsy. ASSESSMENT: BI-RADS 1: NEGATIVE RECOMMENDATION(S): 1: Routine screening mammogram BILATERAL in 1 year. [facility]amm[facility] location[facility] [address], [id number] -------- FINAL REPORT -------- Dictated By: Montez Ferris Dictated Date: 04/16/2025 09:05 ET Assigned Physician: Montez Ferris Reviewed and Electronically Signed By: Montez Ferris Signed Date: 04/16/2025 09:38 ET Workstation ID: [id number] Transcribed By: Self Edit Transcribed Date: 04/16/2025 09:06 ET Narrative 04/16/2025 9:38 AM EDT EXAM: SCREENING MAMMOGRAPHY, BILATERAL HISTORY: SCREENING. No additional history. COMPARISON: 06/12/23, 06/07/22, 05/30/21, 05/24/20 TECHNIQUE: Synthesized CC and MLO projections of each breast. Tomosynthesis of each breast in the CC and MLO projections. ADDITIONAL IMAGING: Craniocaudal view of the right breast exaggerated toward the axilla using Tomosynthesis. Computer-aided detection was employed with the [employer] AI 3-D. TISSUE DENSITY: There are scattered areas of fibroglandular density. (BI-RADS category B) FINDINGS: RIGHT BREAST: No suspicious mass. No suspicious calcification. No distortion. No additional suspicious right breast findings LEFT BREAST: No suspicious mass. No suspicious calcification. No distortion. No additional suspicious left breast findings Procedure Note Montez Ferris MD - 04/16/2025 EXAM: SCREENING MAMMOGRAPHY, BILATERAL HISTORY: SCREENING. No additional history. COMPARISON: 06/12/23, 06/07/22, 05/30/21, 05/24/20 TECHNIQUE: Synthesized CC and MLO projections of each breast.Tomosynthesis of each breast in the CC and MLO projections. ADDITIONAL IMAGING: Craniocaudal view of the right breast exaggeratedtoward the axilla using Tomosynthesis. Computer-aided detection was employed with the [employer] AI 3-D. TISSUE DENSITY: There are scattered areas of fibroglandular density.(BI-RADS category B) FINDINGS: RIGHT BREAST: No suspicious mass. No suspicious calcification. No distortion. Noadditional suspicious right breast findings LEFT BREAST: No suspicious mass. No suspicious calcification. No distortion. Noadditional suspicious left breast findings IMPRESSION: No mammographic evidence of malignancy. No suspicious interval change. A negative mammogram in the presence of a clinically suspicious palpableabnormality does not preclude the possibility of malignancy or alter theindications for biopsy. ASSESSMENT: BI-RADS 1: NEGATIVE RECOMMENDATION(S): 1: Routine screening mammogram BILATERAL in 1 year. 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 Health Care Decision (hx) 05/03/2022 AD CARDENAS DIRECTIVE Health Care Decision (hx) 05/03/2022 AD CARDENAS DIRECTIVE Health Care Decision (hx) 05/03/2022 AD CARDENAS DIRECTIVE Health Care Decision (hx) 05/03/2022 AD CARDENAS DIRECTIVE Health Care Decision (hx) 05/03/2022 AD CARDENAS DIRECTIVE Health Care Decision (hx) 05/03/2022 AD CARDENAS DIRECTIVE Health Care Decision (hx) 05/03/2022 AD CARDENAS DIRECTIVE Health Care Decision (hx) 05/03/2022 AD CARDENAS DIRECTIVE Health Care Decision (hx) 05/03/2022 AD CARDENAS DIRECTIVE Health Care Decision (hx) 05/03/2022 AD CARDENAS DIRECTIVE Health Care Decision (hx) 10/14/2013 AD CARDENAS DIRECTIVE Health Care Decision (hx) 10/14/2013 AD CARDENAS DIRECTIVE Health Care Decision (hx) 10/14/2013 AD CARDENAS DIRECTIVE Health Care Decision (hx) 10/14/2013 AD CARDENAS DIRECTIVE Health Care Decision (hx) 10/14/2013 AD CARDENAS DIRECTIVE Health Care Decision (hx) 10/14/2013 AD CARDENAS DIRECTIVE Health Care Decision (hx) 10/14/2013 AD CARDENAS DIRECTIVE Health Care Decision (hx) 10/14/2013 AD CARDENAS DIRECTIVE Health Care Decision (hx) 10/14/2013 AD CARDENAS DIRECTIVE Health Care Decision (hx) 10/14/2013 AD CARDENAS DIRECTIVE Health Care Decision (hx) 10/14/2013 AD CARDENAS DIRECTIVE Health Care Decision (hx) 10/14/2013 AD CARDENAS DIRECTIVE Health Care Decision (hx) 10/14/2013 AD CARDENAS DIRECTIVE Health Care Decision (hx) 10/14/2013 AD CARDENAS DIRECTIVE Health Care Decision (hx) 10/14/2013 AD CARDENAS DIRECTIVE Health Care Decision (hx) 10/14/2013 AD CARDENAS DIRECTIVE Health Care Decision (hx) 10/14/2013 AD CARDENAS DIRECTIVE Health Care Decision (hx) 10/14/2013 AD CARDENAS DIRECTIVE Health Care Decision (hx) 10/14/2013 AD CARDENAS DIRECTIVE Health Care Decision (hx) 10/14/2013 AD CARDENAS DIRECTIVE Health Care Decision (hx) 10/14/2013 AD CARDENAS DIRECTIVE Health Care Decision (hx) 10/14/2013 AD CARDENAS DIRECTIVE Health Care Decision (hx) 10/14/2013 AD CARDENAS DIRECTIVE Health Care Decision (hx) 10/14/2013 AD CARDENAS DIRECTIVE Care Teams President [employer] Relationship Specialty Start Date End Date Jared López MD [address] [place], [place] [address] PCP - General Internal Medicine 02/25/25
--- OUTSIDE RECORDS SUMMARY | 2025-10-31 09:29 | XMS_ITS | Patient Health Record ---
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 Vital Signs Blood pressure diastolic 84 mm Hg 09/09/2025 Height 5ft 3in in 09/09/2025 Blood pressure systolic 135 mm Hg 09/09/2025 Weight 287 lbs 09/09/2025 BMI 50.83 kg/m2 09/09/2025 Encounters Encounter Location Date Provider Diagnosis [facility] [address] 09/09/2025 Zara Black Ingrown nail L60.0 ; Plantar fasciitis M72.2 ; Pain in right foot M79.671 ; Calcaneal spur, right foot M77.31 ; Interstitial myositis of right foot M60.171 ; Bursitis of right foot M77.51 ; Pain in left foot M79.672 ; Other myositis, left ankle and foot M60.872 and Bursitis of left foot M77.52 [facility] [place] [address] [place] [address] 09/03/2025 Zara Tavarez [facility] [address] [address] 09/09/2025 Zara Tavarez Assessments Encounter Date Diagnosis [...] Provider Name:Zara Tavarez , 12/14/2025 10:30:00 AM, [address] [place] [address], [phone], Provider Name:Zara Tavarez , 12/31/2025 02:45:00 PM, [address] [place] [address], [phone], Insurance Providers Payer Name Payer Address Payer Phone Subscriber Number Group Number Insured Name Patient Relationship to Insured Coverage Start Date Coverage End Date Medicare [employer] [address] [place] [address] [id number] Poornima Waggoner Self - patient is the insured [address] [facility] [address] [facility] [place] [address] [id number] Edilson Poornima Self - patient is the insured 4 Medical (General) History Medical History History ICD Code asthma Back,Hip,and Knee pain CAD (Cholesterol) Heart disease High Blood Pressure Joint implants/screws Surgical History Surgery Date(Month/Year) knee replacement 12/2009 knee replacement 2019 double hernia 10/2013 hysterectomy 07/2011 achilles ruptured 05/2020 ablation of the heart 10/2022
--- OUTSIDE RECORDS SUMMARY | 2025-10-31 09:29 | XMS_ITS | Patient Health Record ---
Author Organization [facility] Address [address] [place] [address] Care Team Providers Care Inside Sales Director Name Role Phone ROSETTA MCCALL Primary Care Provider [place], NURSING Unavailable [phone] JAY GARCIA Unavailable [phone] SUKHI BOCANEGRA Unavailable [phone] Allergies Allergen (clinical drug ingredient) Drug/Non Drug Allergy documented on EMR Reaction Allergy Type Onset Date Status CATS, TREES (uncoded) Unknown Allergy Active Reason For Referral Reason 08/25/25 w appt Refe rral to [facility] acute right-sided hearing loss Diagnosis 1 Unspecified hearing loss (H91.90) Referral Organization [facility] Aleida borrero Referring Provider First Name ROSETTA Referring Provider Last Name STEFANY Referring Provider Speciality Internal edicine Referred Organization [facility] (1) Referred Address [address] [place], [place],[address], Referred Provider Specialty Otology, Lar yngology, Rhinology General Notes Anna HUNT Admin 12:03:42 PM > faxed medical referral, note and most recent labs to [facility] at [phone] requesting an URGENT visit please>no referral required Referral Priority Urgent Reason [facility] hearing loss Diagnosis 1 Hearing loss, unspec ified hearing loss type, unspecified laterality (H91.90) Referral Organization [facility] Referring Provider First Name ROSETTA Referring Provider Last Name STEFANY Referring Provider Speciality Internal M edicine Referral Priority Routine Medications Medication SIG (Take, Route, Frequency, Duration) Notes Start Date End Date Status Albuterol Sulfate HFA 108 (90 Base) MCG/ACT Aerosol Solution 1 puff as needed Inhalation every 4 hrs Active Arnuity Ellipta 100 MCG/ACT Aerosol Powder Breath Activated 1 puff Inhalation Once a day Active Therapeutic Multivit/Mineral - Tablet 1 tab(s) orally once daily-Maintnenence; Duration: 30 day(s) Active Eliquis 5 MG Tablet 1 tablet Orally Twic e a day; Duration: 30 day(s) Active Amoxicillin 500 MG Capsule 4 capsule Ora lly one hour before procedure; Duration: 1 days 04/21/2025 Active Medrol 4 MG Tablet Therapy Pack as directed Orally 10/21/2025 Active Oseltamivir Phosphate 75 MG Capsule 1 capsule Orally Twice a day; Duration: 5 days 10/21/2025 Active Fluticasone Propionate 50 MCG/ACT Suspension 1 spray in each nostril Nasally Twice a day; Duration: 30 days Active Carvedilol 25 MG Tablet 1 tablet with fo od Orally Twice a day Active Furosemide 20 MG Tablet 1 tab(s) Orally once daily; Duration: 90 days Active Rosuvastatin Calcium 10 MG Tablet 1 tablet orally Once a day; Duration: 90 days Active Immunizations Vaccine Route Administration Date Status Comme nts Influenza, Fluzone HD 65+ IM Intramuscular 08/11/2024 Admi nistered Influenza, Fluzone HD 65+ IM Intramuscular 09/08/2025 Admi nistered Social History Tobacco Use: Social History Observation Description Date Details (start date - stop date) Never Smoker NA - NA Social History Tobacco Use: Social Info Question Answer Notes Tobacco Control (Standard) Tobacco use: Nonsmoker Smoking Are you a: never smoker Additional Details Category Social Info Options Details General 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 [employer] 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: no Past year's travels: [place] 10/13 025 alcohol use: yes twice a week drug use: No Hobbies/Exercise habits: boating , camping, gardening, exercise 3-4 times a week Coffee/Tea/Soda: yes Coffee, 1, tatiana y Marital Status single smokers in household no Section Notes: pt never smoke Problems Problem Type SNOMED Code ICD Code Onset Dates Problem Status W/U Status Risk Notes Problem Gastro-esophageal reflux disease without esophagitis (284984130) Gastro-esophageal reflux disease without esophagitis (K21.9) Active confirmed Problem Essential hypertension (34112416) Essential (primary) hypertension (I10) Active confirmed Problem Type II diabetes mellitus without complication (799397947) Type 2 diabetes mellitus without complications (E11.9) Active confirmed Problem Sleep apnea (83777602) Sleep apnea (G47.30) Active confirmed Problem Disorder of lipoprotein storage and metabolism (disorder) (967109570) Disorder of lipoprotein metabolism, unspecified (E78.9) Active confirmed Problem Asthma (824760479) Other asthma (J45.998) Active confirmed Problem Atrial fibrillation (52416847) Atrial fibrillation, unspecified type (I48.91) Active confirmed Problem Age-related osteoporosis (878996878) Osteoporosis, unspecified osteoporosis type, unspecified pathological fracture presence (M81.0) Active confirmed Problem Hearing loss (32323880) Unspecified hearing loss (H91.90) Active confirmed Problem Aortic valve disorder (7100984) Aortic valve stenosis, etiology of cardiac valve disease unspecified (I35.0) Active confirmed Problem Osteoarthritis of right knee joint (099655842903768) Osteoarthritis of right knee, unspecified osteoarthritis type (M17.11) Active confirmed Vital Signs Blood pressure diastolic 81 mm Hg 10/21/2025 Height 64 in 10/21/2025 Blood pressure systolic 131 mm Hg 10/21/2025 Weight 294 lbs 10/21/2025 BMI 50.46 kg/m2 10/21/2025 Encounters Encounter Location Date Provider Diagnosis [address] [address] 09/08/2025 ROSETTA MCCALL Essential (primary) hypertension I10 [...] unspecified hearing loss type, unspecified laterality H91.90 [facility] [address] [place] [address] 08/24/2025 ROSETTA MCCALL Unspecified hearing loss H91.90 ; Essential (primary) hypertension I10 ; Disorder of lipoprotein metabolism, unspecified E78.9 ; Type 2 diabetes mellitus without complications E11.9 ; Gastro-esophageal reflux disease without esophagitis K21.9 ; Atrial fibrillation, unspecified type I48.91 and Other asthma J45.[address] [place] [address] 02/26/2025 ROSETTA MCCLAL Essential (primary) hypertension I10 ; Disorder of [...] Screening for STD (sexually transmitted disease) Z11.3 [address] [phone] 09/08/2025 NURSING [place] Encounter for immunization Z23 [address] [address] 10/21/2025 JAY GARCIA URI with cough and congestion J06.9 and Type A influenza J10.1 [address] [phone] 05/08/2025 SUKHI SAHRA Pain of left calf M79.662 and Essential (primary) hypertension I10 [address] [address] 04/21/2025 ROSETTA MCCALL [address] [address] 03/25/[address] [address] 03/24/[address] [address] 03/23/[address] [address] 03/20/[address] [address] 03/20/2025 [address] [address] [place] [address] 03/05/2025 ROSETTA MCCALL [facility] [address] [place] [address] 02/27/2025 ROSETTA MCCALL [facility] [address] [place] [address] 02/27/2025 ROSETTA MCCALL [facility] [address] [place] [address] 02/27/2025 ROSETTA MCCALL [facility] [address] [place] [address] 01/26/2025 ROSETTA MCCALL [facility] [address] [place] [address] 01/26/2025 ROSETTA MCCALL [facility] [address] [place] [address] 10/06/2025 ROSETTA MCCALL [facility] [address] [place] [address] 10/05/2025 ROSETTA [facility] [address] [place] [address] 09/09/2025 ROSETTA MCCALL Type 2 diabetes mellitus without complications E11.9 [facility] [address] [place] [address] 08/28/2025 ROSETTA [facility] [address] [place] [address] 08/26/2025 ROSETTA MCCALL Hearing loss, unspecified hearing loss type, unspecified laterality H91.90 [facility] [address] [place] [address] 08/25/2025 ROSETTA MCCALL [facility] [address] [place] [address] 08/24/2025 ROSETTA MCCALL [facility] [address] [place] [address] 06/29/2025 ROSETTA MCCALL [facility] [address] [place] [address] 03/24/2025 ROSETTA MCCALL [facility] [address] [place] [address] 02/27/2025 ROSETTA MCCALL [facility] [address] [place] [address] 10/21/2025 ROSETTA MCCALL [facility] [address] [place] [address] 09/23/2025 ROSETTA MCCALL [facility] [address] [place] [address] 08/24/2025 ROSETTA MCCALL [facility] [address] [place] [address] 08/23/2025 ROSETTA MCCALL [facility] [address] [place] [address] 07/22/[address] [facility] [address] [place] [address] 06/19/2025 SUKHI BCOANEGRA [facility] [address] [place] [address] 05/07/2025 ROSETTA MCCALL [facility] [address] [place] [address] 04/21/2025 ROSETTA MCCALL Assessments Encounter Date Diagnosis (ICD Code) Assessment Notes Treatment Notes Treatment Clinical Notes Section Notes 08/26/2025 Hearing loss, unspecified hearing loss type, unspecified laterality (ICD-10 - H91.90) 08/24/2025 Essential (primary) hypertension (ICD-10 - I10) [...] day for 5 days and a Z-Omar. 05/08/2025 Essential (primary) hypertension (ICD-10 - I10) 1. Left calf pain and swelling: DVT seems unlikely given she is on Eliquis and denies missing dosing. Will check to be cautious given clear difference in size and degree of swelling. 2. Hypertension : Borderline today but stressed. Continue baseline medication with Coreg and lisinopril 05/08/2025 Pain of left calf (ICD-10 - M79.662) 1. Left calf pain and swelling: DVT seems unlikely given she is on Eliquis and denies missing dosing. Will check to be cautious given clear difference in size and degree of swelling. 2. Hypertension : Borderline today but stressed. Continue baseline medication with Coreg and lisinopril 02/26/2025 Essential (primary) hypertension (ICD-10 - I10) [...] less than 100 follow-up in 6 months 09/09/2025 Type 2 diabetes mellitus without complications (ICD-10 - E11.9) 09/08/2025 Encounter for immunization (ICD-10 - Z23) HD Influenza vaccine administered. Patient counseled and VIS sheet given. 09/08/2025 Essential (primary) hypertension (ICD-10 - I10) [...] goals and 100 LDL less than 100 10/21/2025 URI with cough and congestion (ICD-10 - J06.9) Oseltamavir 75 mg 1 capsule twice a day for 5 days. Medrol Dosepak as directed. Plenty of liquids. Diabetic Tussin DM for cough as needed. Saline nasal spray 0.9% 2 sprays each nostril 4-6 times a day. Merle pot 1-2 times a day as tolerated. Salt water gargles 1 teaspoon of salt in 16 ounces of warm water gargle and spit 4 times a day. Sugar-free throat lozenges as needed. Rest. Plenty of liquids. Albuterol as needed for wheezing. Follow-up if no improvement in 7 to 10 days, sooner if worsening. Go to ER if marked shortness of breath, marked weakness or other worsening symptoms. 10/21/2025 Type A influenza (ICD-10 - J10.1) See URI with cough and congestion plan. 09/08/2025 Type 2 diabetes mellitus without complications (ICD-10 - E11.9) Patient with prediabetes. Follow-up A1c every 3 to 4 months ophthalmology q. year diet exercise weight maintenance hopefully will be getting GLP-1 for weight and prediabetes 02/26/2025 Type 2 diabetes mellitus without complications (ICD-10 - E11.9) Stable. Check A1c no polyuria polydipsia no ophthalmologic or neurologic symptoms goal A1c less than 7.0 optimally ophthalmology q. year baby aspirin 08/24/2025 Disorder of lipoprotein metabolism, unspecified (ICD-10 - E78.9) Stable recheck every 6 months diet exercise weight loss recommended 02/26/2025 Gastro-esophagea l reflux disease without esophagitis (ICD-10 - K21.9) Stable doing well 08/24/2025 Type 2 diabetes mellitus without complications (ICD-10 - E11.9) Check A1c diet weight loss exercise question Rigoberto will discuss at next visit 09/08/2025 Gastro-esophagea l reflux disease without esophagitis (ICD-10 - K21.9) Stable doing well dietary recommendations including minimizing alcohol caffeine peppermint spearmint chocolate citrus etc. 02/26/2025 Atrial fibrillation, unspecified type (ICD-10 - [...] unspecified type (ICD-10 - I48.91) Follow-up with [facility] cardiology in normal sinus rhythm at the present time Watchman procedure has been discussed she is thinking about it 09/08/2025 Atrial fibrillation, unspecified type (ICD-10 - I48.91) No symptoms. EKG sinus bradycardia declines Watchman procedure heart rate stable no CHF no chest pain 02/26/2025 Osteoporosis, unspecified osteoporosis type, unspecified pathological fracture presence (ICD-10 - M81.0) Calcium 1200 today vitamin D 800 today check bone density Rx given to patient 02/26/2025 Aortic valve stenosis, etiology of cardiac valve disease unspecified (ICD-10 - I35.0) Mild aortic stenosis by echocardiogram. No CHF no AWS ARCHITECT symptoms no chest pain follow-up echo 08/24/2025 Other asthma (ICD-10 - J45.998) 09/08/2025 Osteoporosis, unspecified osteoporosis type, unspecified pathological [...] shortness of breath presyncope dizziness etc. 02/26/2025 Colon cancer screening (ICD-10 - Z12.11) Up-to-date colonoscopy 02/26/2025 Encounter for screening mammogram for malignant neoplasm of breast (ICD-10 - Z12.31) Rx given to patient for mammogram 09/08/2025 Sleep apnea (ICD9-CM - 786.09) Patient on CPAP continue doing well 09/08/2025 Hearing loss, unspecified hearing loss type, unspecified laterality (ICD-10 - H91.90) Recommend ENT evaluation. Referral has already been placed patient did not hear back from them 02/26/2025 Screening for STD (sexually transmitted disease) (ICD-10 - Z11.3) Per patient former boyfriend history of cheating therefore patient wants to get checked for HIV hep C etc. order placed Plan Of Treatment Pending Test Test Name Order Date EKG 08/14/2024 XR Knee Left 2 views 07/17/2023 CT Head (Brain) without IV contrast 08/12 Future Test Test Name Order Date Hemoglobin [id number] 08/09/2024 CBC, Platelet, w/o Differential-[id number] 0 08/09/2024 Albumin/Creatinine Ratio,Urine-[id number] Lipid Panel-[id number] 08/09/2024 Hepatic Function Panel ([id number] 2023 BMP8+eGFR-[id number] 08/09/2024 Hemoglobin R9w-[id number] 12/10/2025 BMP8+eGFR-[id number] 12/10/2025 Next Appt Details Provider Name:ROSETTA BRAMBILA, 03/09/2026 02:30:00 PM, [address] [facility], [place], [address], Insurance Providers Payer Name Payer Address Payer Phone Subscriber Number Group Number Insured Name Patient Relationship to Insured Coverage Start Date Coverage End Date MEDICARE [facility] tu[employer]nr SERVICES 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 Severe sleep ap heidy hyperglycemia Atrial fibrillation cardiology Dr. 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
[2025-10-31 09:41] LABS: MANUAL DIFF FLAG NO
[2025-10-31 10:06] LABS: Hematocrit 42.1 % (37.0-47.0); Hemoglobin 14.0 g/dl (12.0-16.0); Imm Gran Abs Auto 0.07 X10*3/uL (0.00-0.03); Imm Gran Pct Auto 0.9 % (0.0-0.4); Lymphocytes Absolute Auto 1.8 X10*3/uL (1.2-4.9); Mean Corpuscular HGB Conc 33.3 g/dl (31.0-35.0); Mean Corpuscular Hemoglobin 32.1 pg (27.0-33.0); Mean Corpuscular Volume 96.6 fL (80.0-98.0); NRBC Abs Auto 0.000 X10*3/uL (0.0-0.012); NRBC Pct Auto 0.0 /100WBC (0.0-0.2); Platelet Count 221 X10*3/uL (160-400); Red Blood Count 4.36 X10*6/uL (4.20-5.50); White Blood Count 7.6 X10*3/uL (4.8-10.8)
[2025-10-31 10:56] LABS: Alanine Aminotransferase 31 U/L (0-31); Albumin Level 4.1 g/dL (3.5-5.0); Alkaline Phosphatase 87 U/L (39-117); Anion Gap 14 (12-20); Aspartate Amino Transferase 28 U/L (5-31); Blood Urea Nitrogen 17 mg/dL (9-16); Calcium 9.1 mg/dL (8.4-10.2); Carbon Dioxide 25 mmol/L (22-29); Chloride 105 mmol/L (96-108); Cholesterol 167 mg/dL (<200); Estimated Glomerular Filt Rate > 60; HDL Cholesterol 71 mg/dL (>40); Iron 116 mcg/dL (30-160); Percent Iron Saturation 48 % (15-50); Potassium 4.3 mmol/L (3.3-5.1); Sodium 140 mmol/L (135-145); Total Iron Binding Capacity 242 mcg/dL (228-428); Total Protein 6.7 g/dL (6.5-8.0); Triglycerides 63 mg/dL (<150); Unsaturated Iron Binding 126 ug/dL
[2025-10-31 11:06] LABS: Ferritin 674 ng/mL (10-250)
[2025-10-31 11:22] LABS: Folate 12.8 ng/mL (> or = 4.0); Vitamin B12 590 pg/mL (200-900)
== END 2025-10-31 09:26 | disposition home or self-care (01) ==
LOC: HO.LAB 09:25
PROVIDERS: PCP Internal Medicine; Visit Provider Surgery
DX: Z13.1 Encounter for screening for diabetes mellitus (principal); I48.91 Unspecified atrial fibrillation; J45.909 Unspecified asthma, uncomplicated; E66.01 Morbid (severe) obesity due to excess calories; E78.5 Hyperlipidemia, unspecified; I10 Essential (primary) hypertension; G47.30 Sleep apnea, unspecified
CPT/HCPCS: 36415; 80053; 80061; 82306; 82607; 82728; 82746; 83036; 83525; 83540; 84425; 84443; 84590; 84630; 85025; 86140

== ENCOUNTER 2025-11-03 08:47 | Outpatient (REF) | payer MEDICARE, OTHER, SELFPAY ==
--- OUTSIDE RECORDS SUMMARY | 2024-08-14 10:45 | XMS_ITS ---
Author Organization [facility] Address [address] [place] [address] Care Team Providers Care Nondestructive Tester Name Role Phone ROSETTA MCCALL Primary Care Provider Allergies Allergen (clinical drug ingredient) Drug/Non Drug Allergy documented on EMR Reaction Allergy Type Onset Date Status CATS, TREES (uncoded) Unknown Allergy Active REASON FOR VISIT 42 6mo F/U Medications Medication SIG (Take, Route, Frequency, Duration) Notes Start Date End Date Status Erythromycin 5 MG/GM Ointment 1 application into the lower eyelid of affected eye Ophthalmic Four times a day; Duration: 10 day(s) 08/20/2023 Unknown Furosemide 20 MG Tablet TAKE 1 TABLET BY MOUTH DAILY NEEDED (SWELLING).; Duration: 90 Unknow n Fluticasone Propionate 50 MCG/ACT Suspension SPRAY 1 SPRAY INTO EACH NOSTRIL TWICE A DAY; Duration: 90 Unknown Mounjaro 7.5 MG/0.5ML Solution Pen-injector as directed Subcutaneous; Duration: 30 days Unknown Rosuvastatin Calcium 10 MG Tablet TAKE 1 TABLET BY MOUTH EVERY DAY FOR 90 DAYS; Duration: 90 Unknown valACYclovir HCl 500 MG Tablet 1 tablet Orally Once a day; Duration: 10 day(s) Unknown Lisinopril 10 MG Tablet 1 tablet Orally Once a day; Duration: 30 day(s) Unknown Albuterol Sulfate HFA 108 (90 Base) MCG/ACT Aerosol Solution 1 puff as needed Inhalation every 4 hrs Unknown Carvedilol 25 MG Tablet 1 tablet with fo od Orally Twice a day; Duration: 30 day(s) Unknown Therapeutic Multivit/Mineral - Tablet 1 tab(s) orally once daily-Maintnenence; Duration: 30 day(s) Unknown Eliquis 5 MG Tablet 1 tablet Orally Twic e a day; Duration: 30 day(s) Unknown Encounters Encounter Location Date Provider Diagnosis [address] [address] 08/14/2024 ROSETTA MCCALL Essential (primary) hypertension I10 ; Disorder of lipoprotein metabolism, unspecified E78.9 ; Type 2 diabetes mellitus without complications E11.9 ; Gastro-esophageal reflux disease without esophagitis K21.9 ; Other asthma J45.998 and Atrial fibrillation, unspecified type I48.91 Assessments Encounter Date Diagnosis (ICD Code) Assessment Notes Treatment Notes Treatment Clinical Notes Section Notes 08/14/2024 Essential (primary) hypertension (ICD-10 - I10) 08/14/2024 Disorder of lipoprotein metabolism, unspecified (ICD-10 - E78.9) 08/14/2024 Type 2 diabetes mellitus without complications (ICD-10 - E11.9) 08/14/2024 Gastro-esophageal reflux disease without esophagitis (ICD-10 - K21.9) 08/14/2024 Other asthma (ICD-10 - J45.998) 08/14/2024 Atrial fibrillation, unspecified type (ICD-10 - I48.91) Plan Of Treatment Pending Test Test Name Order Date EKG 08/14/2024 Future Test Test Name Order Date Hemoglobin [id number] 08/09/2024 CBC, Platelet, w/o Differential-[id number] 0 08/09/2024 Albumin/Creatinine Ratio,Urine-428160 Lipid Panel-[id number] 08/09/2024 Hepatic Function Panel [id number] 2023 BMP8+eGFR-320335 08/09/2024 Next Appt Details Follow Up: OV 6 months Labs pending EKG today, Reason: Provider Name:ROSETTA BRAMBILA, 03/09/2026 02:30:00 PM, [address] [place] [address], [phone], History and Physical Notes * HPI (History of Present Illness) Category Sub-Category Detail Notes Category Not es General Follow-up hyper tension. See review of systems below Progress Notes * LUPE MANN ADOB: [birth year] (70 yo F)Acc No.[id number]:08/14/2024 Progress Notes Patient: LUPE BANKS Provider: Dariela MCCALL M.D. :1955 A ge:69 Y S ex:Female Date:08/14/2024 Address:[address] [place], [place] [id number] Subjective: * Chief Complaints: * 4 2 6mo F/U * HPI: G eneral: Follow-up hypertension. See review of systems below. * ROS: G eneral health: Appetite: Weight: Energy level: HEENT: CVS: RESP: ABD: /VETERINARY MICROBIOLOGIST: Musculoskeletal: Neurologic: Psychiatric:. 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 Severe sleep apnea Hyperglycemia Atrial fibrillation cardiology Dr. 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 Morley Mammogram June [address] a April 2022 negative Cardiac echo April 2023 lvh grade 2 diastolic dysfunction mild aortic stenosis mild MR EF 55% Bilateral knee replacements Colonoscopy December 2021 Dr. Carmichael recheck in 10 years PFTs May 2022 normal slight decrease in diffusion capacity History of elevated LFTs work-up included hemochromatosis gene mutation testing being negative alpha 1 antitrypsin negative antimitochondrial antibody negative antinuclear antibody negative anti-smooth muscle antibody negative hepatitis C negative hepatitis B negative Bone density May 2021 Echocardiogram May 2024 EF 55% mild aortic stenosis. Ascending aorta 3.7 cm. Mild LVH Cardiology follow-up February 2024 Dr. Castaneda * Surgical History: wisdom teeth extract 1978 Lt Knee 2007 left TKR 08/24/2010 hysterectomy, total 2010 right knee mcl/acl 02/26/2010 double hernia 10/2013 * Medications: U nknownEliquis 5 MG Tablet 1 tablet Orally Twice a day valACYclovir HCl 500 MG Tablet 1 tablet Orally Once a day Lisinopril 10 MG Tablet 1 tablet Orally Once a day Albuterol Sulfate HFA 108 (90 Base) MCG/ACT Aerosol Solution 1 puff as needed Inhalation every 4 hrs Carvedilol 25 MG Tablet 1 tablet with food Orally Twice a day Therapeutic Multivit/Mineral - Tablet 1 tab(s) orally once daily-Maintnenence Erythromycin 5 MG/GM Ointment 1 application into the lower eyelid of affected eye Ophthalmic Four times a day Furosemide 20 MG Tablet TAKE 1 TABLET BY MOUTH DAILY NEEDED (SWELLING). Fluticasone Propionate 50 MCG/ACT Suspension SPRAY 1 SPRAY INTO EACH NOSTRIL TWICE A DAY Mounjaro 7.5 MG/0.5ML Solution Pen-injector as directed Subcutaneous Rosuvastatin Calcium 10 MG Tablet TAKE 1 TABLET BY MOUTH EVERY DAY FOR 90 DAYS Unknown Eliquis 5 MG Tablet 1 tablet Orally Twice a day Unknown valACYclovir HCl 500 MG Tablet 1 tablet Orally Once a day Unknown Lisinopril 10 MG Tablet 1 tablet Orally Once a day Unknown Albuterol Sulfate HFA 108 (90 Base) MCG/ACT Aerosol Solution 1 puff as needed Inhalation every 4 hrs Unknown Carvedilol 25 MG Tablet 1 tablet with food Orally Twice a day Unknown Therapeutic Multivit/Mineral - Tablet 1 tab(s) orally once daily-Maintnenence Unknown Erythromycin 5 MG/GM Ointment 1 application into the lower eyelid of affected eye Ophthalmic Four times a day Unknown Furosemide 20 MG Tablet TAKE 1 TABLET BY MOUTH DAILY NEEDED (SWELLING). Unknown Fluticasone Propionate 50 MCG/ACT Suspension SPRAY 1 SPRAY INTO EACH NOSTRIL TWICE A DAY Unknown Mounjaro 7.5 MG/0.5ML Solution Pen-injector as directed Subcutaneous Unknown Rosuvastatin Calcium 10 MG Tablet TAKE 1 TABLET BY MOUTH EVERY DAY FOR 90 DAYS * Allergies: C ATS, TREES Objective: * P ast Orders: Lab:VITAMIN B12 * Collection Date 01/16/2024 01/16/2024 Collection Time 08:41 AM 08:41 AM Order Date 01/16/2024 01/16/2024 VITAMIN B12 NR 669 (Ref Range: (232-1245) pg/mL) * Lab:FOLIC ACID * Collection Date 01/16/2024 01/16/2024 Collection Time 08:41 AM 08:41 AM Order Date 01/16/2024 01/16/2024 FOLIC ACID NR 14.7 (Ref Range: (4.8-37.3) ng/mL) ???Lab:HEMOGLOBIN A1C (Order Date - 01/16/2024) (Collection Date & Time - 01/16/2024 08:41 AM)?ValueReference Range?HEMOGLOBIN A1C6.2H(4.0- 5.6) - % * Lab:CPK WITH REFLEX TO CKMB CONFIRMATION * Collection Date 01/16/2024 01/16/2024 Collection Time 08:41 AM 08:41 AM Order Date 01/16/2024 01/16/2024 * Lab:CPKTOTAL ONLY * Collection Date 01/16/2024 01/16/2024 Collection Time 08:41 AM 08:41 AM Order Date 01/16/2024 01/16/2024 CKTOTAL ONLY NR 69 (Ref Range: (0-190) U/L) ???Lab:HEPATIC FUNCTION PANEL (Order Date - 01/14/2024) (Collection Date & Time - 01/16/2024 08:41AM) ???Lab:LIPID PANEL (Order Date - 01/14/2024) (Collection Date & Time - 01/16/2024 08:41 AM)?ValueReference Range?IIPRODEOBNU607(<200) - MG/DL?ARXUVJOMHQHU107(<150) - MG/DL?HDL CHOL77(>39) - MG/DL ?LDL CHOLESTEROL, SYGJPDSBDP32(0-130) - MG/DL ???Lab:LYME ANTIBODY W/REFLEX TO WESTERN BLOT (Order Date - 07/17/2023) (Collection Date & Time - 07/17/2023 10:15 AM)?ValueReference Range ?LYME ANTIBODYNEGATIVE(NEG) - ???Lab:TSH (Order Date - 07/12/2023) (Collection Date & Time - 07/17/2023 10:15 AM)?ValueReference Range?TSH2.00(0.4-4.2) - uIU/mL Assessment: * Assessment: 1. E ssential (primary) hypertension - I10 (Primary) 2 . D isorder of lipoprotein metabolism, unspecified - E78.9 3 . T ype 2 diabetes mellitus without complications - E11.9 4 . G yris-esophageal reflux disease without esophagitis - K21.9 5 . O ther asthma - J45.998 6 . A trial fibrillation, unspecified type - I48.91 Plan: * Treatment: 2. D isorder of lipoprotein metabolism, unspecified L AB: CBC, Platelet, w/o Differential-[id number] (Ordered for 08/09/2024) L AB: BMP8+eGFR-623098 (Ordered for 08/09/2024) L AB: Hemoglobin H8z-645661 (Ordered for 08/09/2024) L AB: Albumin/Creatinine Ratio,Urine-272156 (Ordered for 08/09/2024) L AB: Lipid Panel-380740 (Ordered for 08/09/2024) L AB: Hepatic Function Panel [id number] (Ordered for 08/09/2024) 3. T ype 2 diabetes mellitus without complications L AB: CBC, Platelet, w/o Differential-019859 (Ordered for 08/09/2024) L AB: BMP8+eGFR-517991 (Ordered for 08/09/2024) L AB: Hemoglobin U3n-412959 (Ordered for 08/09/2024) L AB: Albumin/Creatinine Ratio,Urine-913449 (Ordered for 08/09/2024) L AB: Lipid Panel-945090 (Ordered for 08/09/2024) L AB: Hepatic Function Panel [id number] (Ordered for 08/09/2024) 4. G yris-esophageal reflux disease without esophagitis L AB: CBC, Platelet, w/o Differential-042486 (Ordered for 08/09/2024) L AB: BMP8+eGFR-244602 (Ordered for 08/09/2024) L AB: Hemoglobin U9j-259777 (Ordered for 08/09/2024) L AB: Albumin/Creatinine Ratio,Urine-496675 (Ordered for 08/09/2024) L AB: Lipid Panel-612911 (Ordered for 08/09/2024) L AB: Hepatic Function Panel [id number] (Ordered for 08/09/2024) 5. O ther asthma L AB: CBC, Platelet, w/o Differential-671639 (Ordered for 08/09/2024) L AB: BMP8+eGFR-443239 (Ordered for 08/09/2024) L AB: Hemoglobin E3d-326119 (Ordered for 08/09/2024) L AB: Albumin/Creatinine Ratio,Urine-295366 (Ordered for 08/09/2024) L AB: Lipid Panel-668114 (Ordered for 08/09/2024) L AB: Hepatic Function Panel [id number] (Ordered for 08/09/2024) 6. A trial fibrillation, unspecified type L AB: CBC, Platelet, w/o Differential-194927 (Ordered for 08/09/2024) L AB: BMP8+eGFR-202907 (Ordered for 08/09/2024) L AB: Hemoglobin H6y-626799 (Ordered for 08/09/2024) L AB: Albumin/Creatinine Ratio,Urine-812377 (Ordered for 08/09/2024) L AB: Lipid Panel-100227 (Ordered for 08/09/2024) L AB: Hepatic Function Panel [id number] (Ordered for 08/09/2024) I maging: EKG * Procedure Codes: 9 3000 Electrocardiogram, [id number] Complex e/m visit add on * Follow Up: O V 6 months Labs pending EKG today Billing Information: * Procedure Codes: 30903 Electrocardiogram, complete. G2211 Complex e/m visit add on. * Electronic signature of LENO MCCALL MD on 11/03/2025 at 09:08 AM EST Sign off status: Pending * Provider: Dariela MCCALL M.D. Date: Generated for Charlotte ivory/Willem/Matthewitting on: 01/04/2025 09:08 AM EST
--- OUTSIDE RECORDS SUMMARY | 2025-09-10 05:30 | XMS_ITS ---
Author Organization [facility] Address [address] [place] [address] Care Team Providers Care Wrapper Dipper Name Role Phone Jared López MD Primary Care Provider Unavail able Black, Zara Unavailable [phone] Medications Medication SIG (Take, Route, Frequency, Duration) Notes Start Date End Date Status Tylenol PRN Active Turmeric Active ZyrTEC Allergy 10 MG 1 tablet Orally Onc e a day Active valACYclovir HCl 500 MG 1 tablet Orally Once a day As needed Active Calcium + D3 Active Furosemide 20 MG 1 tablet Orally Once a day Active Rosuvastatin Calcium 10 MG 1 tablet Oral ly Once a day Active Carvedilol Active Eliquis 5 MG as directed Orally Active Arnuity Ellipta 100 MCG/ACT 1 puff Inhal ation Once a day Active Fluticasone Propionate 50 MCG/ACT 1 spray in each nostril Nasally Twice a day Active Albuterol Sulfate 108 (90 Base) MCG/ACT 1 puff as needed Inhalation Active Social History Tobacco Use: Social History Observation Description Date Details (start date - stop date) Never Smoker NA - NA Tobacco use other than smoking: Question Answer Notes Are you an other tobacco user? No Tobacco Control (Standard) Question Answer Notes Tobacco use: Nonsmoker AUDIT-C (Standard) Question Answer Notes Did you have a drink contain ing alcohol in the past year? Yes How often did you have a dri nk containing alcohol in the past year? 2 to 4 times a month (2 points) How many drinks did you have on a typical day when you were drinking in the past year? 1 or 2 drinks (0 point) How often did you have six o r more drinks on one occasion in the past year? Never (0 point) Points 2 Interpretation Negative Encounters Encounter Location Date Provider Diagnosis [facility] Amil[address] [place] [address] 09/10/2025 Zara Tavarez Plan Of Treatment Next Appt Details Provider Name:Zara Tavarez , 12/14/2025 10:30:00 AM, [address] [place] [address], [phone], Provider Name:Zara Tavarez , 12/31/2025 02:45:00 PM, [address] [place] [address], [phone], Progress Notes * Poornima MANN ADOB: [birth year] (70 yo F)Acc No.[id number]:09/10/2025 Progress Notes Patient: Poornima BANKS Provider: Mahesh Tavarez DPM :1955 A ge:70 Y S ex:Female Date:09/10/2025 Address: [address], [place], [id number] Pcp:Jared López MD Subjective: * Chief Complaints: * * ROS: G eneral/Constitutional: Nausea d enies. V omiting d enies. H lyndsey Thirst d enies. L oss appetite d enies. C hills d enies. F atigue d enies.?Fever d enies. N ight Sweats d enies. U nexplained weight loss d enies. U nexplained weight gain d enies. H EENTM: Dentures d enies. D izziness d enies. G lasses/contacts a dmits. R etinopathy d enies. B lurred/double vision d enies. T MJ?denies. D ischarge/drainage d enies. I mplants d enies. S ore throat d enies. D ental implants d enies. H rachael of hearing a dmits. D ifficulty chewing/swallowing/speaking d enies. N ose bleeds d enies. S ore mouth d enies. ? R espiratory: On Oxygen d enies. P neumonia/pleurisy d enies.?Bronchitis d enies. E mphysema d enies. C oughing d enies. C ough blood?denies. S hortness of breath d enies. W heezing d enies. C ardiovascular: Pacemaker d enies. M POLLS OR SURVEYS INTERVIEWER d enies. W PW d enies. C HF d enies. H eart attack d enies. S eptal defect d enies. R apid beat d enies. C hest pain d enies. A trial Fib. a dmits. M urmur/Palpitations a dmits. G astrointestinal: Hemorrhoids d enies. S tomach/Abdominal pain d enies. D ark blood stool d enies. I rritable bowel d enies. C onstipation d enies. D iarrhea d enies. H ematology: Swelling d enies. C lots d enies. V aricose Veins d enies. B ruising d enies. B leeding problem d enies. G enitourinary: Blood urine d enies. F requent/Painfu/urination/bladder control d enies. K idney stones d enies. I nfection (UTI) d enies. N ephropathy d enies. s ex trans dis (STD) a dmits. P rostate d enies. M usculoskeletal: Hammertoes d enies. B unions a dmits. B ack Pain a dmits. M uscle Cramps/ Resting a dmits. M uscle cramps / walking a dmits.?Generalized aches and pains a dmits. W eakness d enies. I nteg.: Lara d enies. S cars d enies. C orns/calluses?denies. I ngrown nails d enies. P ainful nails d enies. O pen Sores d enies. R ashes d enies. N eurologic: Difficulty sleeping d enies. B rain disorder d enies. N umbness d enies. B alance trouble d enies. C onfusion d enies. F ainting/blackouts d enies. T ingling d enies. T remors d enies. * Medical History: A sthma, Back,Hip,and Knee pain, CAD (Cholesterol), Heart disease, High Blood Pressure, Joint implants/screws. * Surgical History: k nee replacement 12/2009, knee replacement 2018, double hernia 10/2013, hysterectomy 07/2011, achilles ruptured 05/2020, ablation of the heart 10/2022. * Family History: M other: , diagnosed with Diabetic - NIDDM, Unspecified essential hypertension, Family history of arthritis. F ather: , diagnosed with Unspecified essential hypertension.? * Social History: T obacco Use: T obacco use other than smoking A re you an other tobacco user? N o Tobacco Control (Standard) T obacco use: N onsmoker M iscellaneous: C affeine: yes, frequency:, 1-2 cups per day. Children: yes. Exercise: yes, golf, hiking, bike riding, swimming, camping. Marital status: single. Occupation: Retired. D rug/Alcohol: A ROXANNA-C (Standard) D id you have a drink containing alcohol in the past year? Y es H ow often did you have a drink containing alcohol in the past year? 2 to 4 times a month (2 points) H ow many drinks did you have on a typical day when you were drinking in the past year? 1 or 2 drinks (0 point) H ow often did you have six or more drinks on one occasion in the past year? N ever (0 point) P oints 2 I nterpretation N egative * Medications: T aking Calcium + D3 , Taking Tylenol , Notes to Pharmacist: PRN, Taking Turmeric , Taking ZyrTEC Allergy 10 MG Tablet 1 tablet Orally Once a day , Taking valACYclovir HCl 500 MG Tablet 1 tablet Orally Once a day As needed, Taking Fluticasone Propionate 50 MCG/ACT Suspension 1 spray in each nostril Nasally Twice a day , Taking Albuterol Sulfate 108 (90 Base) MCG/ACT Aerosol Powder Breath Activated 1 puff as needed Inhalation , Taking Arnuity Ellipta 100 MCG/ACT Aerosol Powder Breath Activated 1 puff Inhalation Once a day , Taking Furosemide 20 MG Tablet 1 tablet Orally Once a day , Taking Rosuvastatin Calcium 10 MG Tablet 1 tablet Orally Once a day , Taking Carvedilol , Taking Eliquis 5 MG Tablet as directed Orally Objective: * Vitals: Assessment: Plan: * Treatment: * Images: * The named appointment provid er may or may not be the originator of this progress note, and it is not deemed complete until electronically signed by the appointment provider. Sign off status: Pending * Provider: Mahesh Tavarez DPM Date: Generated for Charlotte ivory/Willem/Hesham on: 01/04/2025 09:08 AM EST
--- NOTE | ~2025-11-03 | XR_ITS ---
EXAMINATION: XR CHEST 2 VIEWS HISTORY: E66.01 - Morbid (severe) obesity due to excess calories COMPARISON: There are no prior studies available for comparison. FINDINGS: PA and lateral views of the chest are submitted. The lungs are expanded and clear. There is no pleural effusion, pneumothorax, or pulmonary vascular congestion. The heart is normal in size. There is degenerative disc disease of the spine. XR/XR chest 2V IMPRESSION: Clear lungs. Electronically signed by: Ortega Hernandez MD 11/03/2025 09:31 AM [facility]
--- NOTE | 2025-11-03 08:52 | ECG_ITS ---
Test Reason : e66.01 Blood Pressure : */* mmHG Vent. Rate : 67 BPM Atrial Rate : 67 BPM P-R Int : 170 ms QRS Dur : 140 ms QT Int : 428 ms P-R-T Axes : 47 49 28 degrees QTcB Int : 452 ms Normal sinus rhythm Left bundle branch block Abnormal ECG No previous ECGs available Referred By: Nirav Patel Electronically Signed By: CECILLE BARBOSA MD
--- OUTSIDE RECORDS SUMMARY | 2025-11-03 09:08 | XMS_ITS | Clinical Summary ---
Author Organization [address] [place] [address] Address [address] [place] [address] Phone Care Team Providers Care Customer Energy Specialist Name Role Phone Jared López MD Primary Care Provider [phone] Allergies Active Allergy Reactions Criticality Noted Date [...] I did recommend she reach out to [place] [facility] . Assessment & Plan [...] her age is less than 80. Her [id number] score is 2 for age and gender [...] her age is less than 80. Her [id number]-WHHa score is 2 for age and gender [...] Surgery Date Site/Laterality Comments KNEE ARTHROSCOPY PROCEDURE: KS ARTHROSCOPY AID TX SPINE&/FX KNEE W/O FIXJ TOTAL KNEE ARTHROPLASTY PROCEDURE: KS ARTHRP KNE CONDYLE&PLATU MEDIAL&LAT COMPARTMENTS OTHER SURGICAL HISTORY PROCEDURE: KS TOTAL ABDOMINAL HYSTERECT W/WO RMVL TUBE OVARY OTHER SURGICAL HISTORY PROCEDURE: HISTORY OTHER; COMMENT: Hernia repair OTHER SURGICAL HISTORY PROCEDURE: KS REPAIR PRIMARY OPEN/PRQ RUPTURED ACHILLES TENDON HYSTERECTOMY [...] fracture presence MG MAMMO DIGITAL SCREENING W MAEHSH BILAT Routine 04/16/2025 8:43 AM EDT Encounter [...] probability of hip fracture of 0.7%. Code 35693 -------- FINAL REPORT -------- Dictated By: Oneil Urbano Dictated Date: 04/16/2025 11:35 ET Assigned Physician: Oneil Urbano Reviewed and Electronically Signed By: Oneil Urbano Signed Date: 04/16/2025 11:37 ET Workstation ID: [id number] Transcribed By: Self Edit Transcribed Date: 04/16/2025 [...] density of the femurs bilaterally is 1.101 gm/nk1pcwid is 109% of that of young normals [...] probability of hip fracture of 0.7%. Code 74193 -------- FINAL REPORT -------- Dictated By: Oneil Urbano Dictated Date: 04/16/2025 11:35 ET Assigned Physician: Oneil Urbano Reviewed and Electronically Signed By: Oneil Urbano Signed Date: 04/16/2025 11:37 ET Workstation ID: [id number] Transcribed By: Self Edit Transcribed Date: 04/16/2025 [...] year. Mamm[facility] [address], [address] -------- FINAL REPORT -------- Dictated By: Montez Ferris Dictated Date: 04/16/2025 09:05 ET Assigned Physician: Montez Ferris Reviewed and Electronically Signed By: Montez Ferris Signed Date: 04/16/2025 09:38 ET Workstation ID: [id number] Transcribed By: Self Edit Transcribed Date: 04/16/2025 [...] Tomosynthesis. 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 TISSUE DENSITY: There are scattered [...] year. 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
--- OUTSIDE RECORDS SUMMARY | 2025-11-03 09:08 | XMS_ITS | Encounter Summary ---
Author Organization [facility] Address [address] [place] [address] Care Team Providers Care Special Education Superintendent Name Role Phone Jared López Primary Care Provider [phone] Encounter Details Date Type Department Care Team (Late st Contact Info) Description 02/20/2019 Maritime Officer Only Encounter Independent Practices [place] Sports [facility] Tess Rand III, MD [facility] [place] [address] Social History Tobacco Use Types Packs/Day Years Used Date Smoking Tobacco: Never Smokeless Tobacco: Never Alcohol Use Standard Drinks/Week Comments Yes 4 (1 standard drink = 0.6 oz pur e alcohol) Comments No Sex and Gender Information Value Date Recorded Sex Assigned at Not on file Legal Sex Female 10:26 AM EDT Gender Identity Not on file Sexual Orientation Not on file documented as of this encounter Progress Notes * Tess Rand III, MD - 02/20/2019 10:15 AM EDT Visit Type: Follow-up Diagnosis: Status post right total knee arthroplasty and poly exchange left knee. Relevant Surgeries: Right total knee arthroplasty with left knee polyethylene up sizing 12/11/2018 Disposition: Follow-up in 6 weeks History of Present Illness: Poornima Waggoner following up on both knees. She states overall she is doing well. Unfortunately 4 weeks postoperative her father did pass away in [place] and she did have to travel an organized his Services. Did set her back with her physical therapy. At this point she istaking Celebrex and oxycodone. She is on her 81 mg aspirin. She is still out of work. Physical Exam: Both knees demonstrate well-healed incisions anteriorly. Range of motion is 0-125 onthe left knee is 0-120 on the right knee. Stable valgus and varus exam bilaterally. No calf pain and grossly neurovascular intact distally. Imaging/Studies: Radiographs today include three views of both knees. AP standing, standing lateraland Merchant view. She does have retained hardware to both knees. She is well placed total knee arthroplasties bilaterally. Stemmed tibial components. No signs of osteolysis, subsidence or fracture. The lateral and Merchant view demonstrates the patella to be tracking centrally at appropriate height. Assessment: Status post right total knee arthroplasty and left knee polyethylene up sizing, doing well Plan: I reviewed her radiographs with her gave her copy of them. I did send her in amoxicillin for dental prophylaxis. I did refill her oxycodone to take sparingly. We will see her back in 6 weeks and at that point hopefully which she can get back to work. Patient comfortable with the plan and questions answered. Patient seen and examined by Dr. Rnad who agrees with the assessment and plan. This note was generated using voice recognition. Please excuse any business planning director errors which may have been overlooked during review. CC: Primary Care Physician documented in this encounter Plan of Treatment Not on file documented as of this encounter Visit Diagnoses Not on filedocumented in this encounter Care Teams Special Education Superintendent Relationship Specialty Start Date End Date Rene Jared Blayne PCP - General 11/14/18 documented as of this encounter
--- OUTSIDE RECORDS SUMMARY | 2025-11-03 09:08 | XMS_ITS | Encounter Summary ---
Author Organization [facility]ail[facility] Address [address] [place] [address] Care Team Providers Care Business Manager Name Role Phone Rene Jared Blayne Primary Care Provider [phone] Encounter Details Date Type Department Care Team (Late st Contact Info) Description 11/27/2018 Clinical Services Manager Only Encounter Independent Practices [facility] Malgorzata Fajardo PA [address] [place] [address] Social History Tobacco Use Types Packs/Day Years Used Date Smoking Tobacco: Never Smokeless Tobacco: Never Alcohol Use Standard Drinks/Week Comments Yes 4 (1 standard drink = 0.6 oz pur e alcohol) Comments Unknown Sex and Gender Information Value Date Recorded Sex Assigned at Not on file Legal Sex Female 10:26 AM EDT Gender Identity Not on file Sexual Orientation Not on file documented as of this encounter Progress Notes * ISRAEL Dong - 11/27/2018 9:27 AM EST Visit Type: Follow-up Diagnosis: Right knee osteoarthritis left knee painful hardware Relevant Surgeries: Left total knee arthroplasty Disposition: Left knee arthrotomy poly exchange and right total knee arthroplasty date of surgery 12/11/2018 History of Present Illness: Patient is a very pleasant 63-year-old female longstanding history of right knee osteoarthritis she has failed conservative treatment options after long discussion risks benefits she has elected to proceed with surgical intervention with regards to her left knee she underwent total knee arthroplasty in 2009 since that time she has had persistent difficulty with instability primarily going up and down stairs and has elected proceed with surgical intervention Past Medical History: Uterine cancer Hypertension EKG with left bundle branch block a negative cardiac workup Sleep apnea uses CPAP No history of deep vein thrombosis or PE No history of complications with anesthesia Past Surgical History: Left total knee arthroplasty August 2010 with Richa Legacy cruciate sacrificing high flex gender specific replacement size E femur size 5 tibia 15 x 30 mm Stubby 17 mm spacerand 32 mm patella button Allergies: No known drug allergies Medications: Aspirin 81 mg p.o. Q.h.s. Vitamin D3 1000 international units p.o. Q.h.s. Flonase 50 mcg 1 spray each nostril twice a day Zestril 20 mg 1 tab p.o. Q.day Multivitamin 1 tab p.o. 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 no tobacco use occasional alcohol use positive for bilateral knee pain no calf pain chest pain or exertional shortness of breath Review of Systems: positive for bilateral knee pain no calf pain chest pain or exertional shortnessof breath Physical Exam: BMI 49.25 HEENT atraumatic normocephalic no evidence of labored breathing alert oriented x3 calves are soft and benign range of motion bilaterally 0-130 degrees extensor mechanisms are intact she has 2+ pedal pulses bilaterally Imaging/Studies: AP lateral and sunrise x-rays obtained on 08/08/2018 are consistent with a left total knee arthroplasty right knee tricompartmental osteoarthritis with screws both medial femoral condyle and tibial tubercle CBC stable with hematocrit 43.8 Nasal swab negative INR 1.0 BMP shows BUN creatinine of 21 and 0.8 GFR of 80 Hemoglobin A1 c 5.9 EKG shows normal sinus rhythm with a left bundle branch block June 2018 stress test no ischemia Assessment: Right knee osteoarthritis left knee painful hardware Plan: All the risks and benefits as well as expected postop course were discussed the patient risksinclude but not limited to neurovascular injury bleeding infection persistent pain hardware failureneed for revision medical complications include but not limited to deep vein thrombosis PE and OR patient consents understanding wishes to proceed 1. Patient anticipates discharge home postoperative day 1 or 2 on discharge she is weight-bearing as tolerated bilaterally her dressing will be left intact until postoperative day 10. Which point they can be removed her bradly will be removed at her 1st follow-up visit scheduled for 12/26/2018 dwayne have 3-4 home physical therapy sessions in addition she will start her outpatient physical therapy 7-10 days postoperatively she was given a prescription for this today she already has it scheduled at a facility close to her home in [facility] 2. The patient does not have any contraindications IV TXA 3. The patient will receive 3 g of IV Ancef 4. The patient will be discharged on Xarelto 10 mg 1 tab p.o. Q.day times 10 days followed by aspirin 81 mg p.o. Q.day x5 weeks 5. The patient has tolerated oxycodone the past without difficulty 6. We discussed dental prophylaxis for 2 years 7. The patient will bring her CPAP to the hospital with her 8. I placed an order for IV Decadron This note was generated using voice recognition. Please excuse any market research assistant errors which may have been overlooked during review. CC: Primary Care Physician documented in this encounter Plan of Treatment Not on file documented as of this encounter Visit Diagnoses Not on filedocumented in this encounter Care Teams Business Manager Relationship Specialty Start Date End Date Rene Jared Cisneros PCP - General 11/14/18 documented as of this encounter
--- OUTSIDE RECORDS SUMMARY | 2025-11-03 09:08 | XMS_ITS | Encounter Summary ---
Author Organization [facility]aila Flores [facility] Address [address] [place] [address] Care Team Providers Care Reliability Technologist Name Role Phone Rosetta Mccall Primary Care Provider [phone] Encounter Details Date Type Department Care Team (Late st Contact Info) Description 01/29/2024 Resident Services Supervisor Only Encounter Independent Practices [facility] Tres Tobias MD [address] [place] [address] Social History Tobacco Use Types Packs/Day Years [...] as of this encounter Progress Notes * Tres Tobias MD - 01/29/2024 12:54 PM EDT Patient Name : POORNIMA MANN (68yo, F) ID# [id number] Appt. Date/Time : 01/29/2024 01:00PM : 1955 Service Dept. : [facility] Provider : TRES TOBIAS MD Insurance Med Primary[place] Insurance # : [id number] PCP : ROSETTA MCCALL MD Referring Provider Name : ROSETTA MCCALL MD Employer Name : [employer] Med Secondary: [facility] (MEDICARE SUPPLEMENT) Insurance # : [id number] Policy/Group # : [id number] Employer Name : [employer] [employer] Stand Offer Prescription: EXPRESS SCRIPTS - Member is eligible. details Chief Complaint SMN Knee Problem Patient's Care Team Primary Care Provider (Primary Insurance): ROSETTA MCCALL MD: [address] [place] [phone], , Referring Provider (Primary Insurance): ROSETTA MCCALL MD: [address] [place] [phone], , Patient's Pharmacies [id number] [address] [place] [address], , Vitals None recorded. Allergies CAT DANDER DOG DANDER HOUSE DUST MITE Medications Name: albuterol sulfate HFA 90 mcg/actuation aerosol inhaler INHALE 2 PUFFS BY MOUTH EVERY 6 HOURS IF NEEDED. Date: 03/21/23 filled Source: [facility]ne Name: Arnuity Ellipta 100 mcg/actuation powder for inhalation TAKE 1 PUFF BY MOUTH EVERY 24 HOURS,X30 DAYS, RINSE MOUTH AND THROAT AFTER USE Date: 01/17/24 filled Source: rene Name: benzonatate 200 mg capsule TAKE 1 CAPSULE BY MOUTH THREE TIMES A DAY NEEDED FOR COUGH Date: 02/03/23 filled Source: normariletty Name: carvediloL 25 mg tablet TAKE 1 TABLET BY MOUTH TWICE DAILY WITH MEALS Date: 11/23/23 filled Source: rene Name: DILT-XR 240 mg capsule, extended release TAKE 1 CAPSULE BY MOUTH EVERY DAY Date: 01/12/23 filled Source: normariletty Name: estradioL 0.01% (0.1 mg/gram) vaginal cream APPLY 1 G VAGINALLY 3 TIMES A WEEK FOR 30 DAYS Date: 09/28/23 filled Source: normariletty Name: fluticasone propionate 50 mcg/actuation nasal spray,suspension SPRAY 1 SPRAY INTO EACH NOSTRIL TWICE A DAY Date: 12/22/23 filled Source: normariletty Name: furosemide 20 mg tablet TAKE 1 TABLET BY MOUTH DAILY NEEDED (SWELLING). Date: 11/17/23 filled Source: [facility] Name: Mounjaro 2.5 mg/0.5 mL subcutaneous pen injector INJECT 1 PREFILLED PEN SUBCUTANEOUSLY ONCE AWEEK DIRECTED Date: 01/25/24 filled Source: [facility]arthana Name: rosuvastatin 10 mg tablet TAKE 1 TABLET BY MOUTH EVERY DAY FOR 90 DAYS Date: 01/10/24 filled Source: [facility]arthana Name: Xarelto 20 mg tablet TAKE 1 TABLET BY MOUTH EVERY DAY Date: 11/26/23 filled Source: normariVarthana Problems Reviewed Problems * Patellofemoral osteoarthritis - Onset: 08/07/2017 - M17.11:Osteoarthritis- Right Knee * Idiopathic osteoarthritis - Onset: 08/08/2018 - M17.0:Bilateral primary osteoarthritis of knee * Chondromalacia of right patella - Onset: 08/07/2017 - M22.41:Chondromalacia patellae, right knee * Pain in right knee - Onset: 12/27/2018 - M25.561:Pain-Right Knee * Pain in left knee - Onset: 12/27/2018 - M25.562:Pain-Left Knee Family History Family History-Cancer Family History-No history of complications with anesthesia Social History Orthopedic Surgery Have you had x-rays/imaging for today's condition?: Yes Have you had a bone density screening?: Yes She is single lives alone she is family members that will be staying with her postoperatively no assistive devices at baseline 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 no tobacco use occasional alcohol use positive for bilateral knee pain no calf pain chest pain or exertional shortness of breath Social ETOH negative cigarettes Surgical History Left total knee arthroplasty August 2010 with Richa Legacy cruciate sacrificing high flex gender specific replacement size E femur size 5 tibia 15 x 30 mm Stubby 17 mm spacer and 32 mm patella button(Left total knee arthroplasty) Status post left total knee replacement status post multi ligament repair status post hysterectomy status post herniorrhaphy(Status post bilateral knee replacements a multiple ligament reconstruct) Past Medical History High Cholesterol: Y sleep apnea: Y Notes: Uterine cancer, Hypertension, EKG with left bundle branch block a negative cardiac workup, Sleep apnea uses CPAP, No history of deep vein thrombosis or PE, No history of complications with anesthesia Hypertension Asthma arthritis Screening None recorded. HPI Diagnosis: Bilateral knee pain Previous Surgeries: Bilateral multi ligament surgeries by [facility] Left total knee arthroplasty [address] Rand, spacer replacement 2019 Right total knee arthroplasty [address] Rand History of Present Illness: Patient is a pleasant 68-year-old female presenting today for repeat evaluation of her bilateral knees. She did do physical therapy for the past couple of months for bilateral knee pain without much relief. However she is also complaining of pain that starts in her back and goes down the top of theright leg. Denies any bowel or bladder dysfunction or perineal numbness. No recent injury or trauma. She did go to her primary care provider for her low back and brought in x-rays today of her lumbarspine. She also just started a weight loss medication. No injury or trauma since we saw her last. She is hoping to avoid anymore surgery on her knees if possible. ROS ROS as noted in the HPI Physical Exam Patient is well-appearing and cooperative with today's exam. Awake, alert, and oriented x3. In no acute distress, does not demonstrate increased work of breathing. Appears stated age, dressed appropriately for the weather. Examination of right knee demonstrates well-healed surgical incision. No significant effusion or erythema noted. No warmth. She has full and painless range of motion on exam today. She has tendernessto palpation along the medial joint line. No lateral joint line tenderness. She does not have pain when stressing the MCL. However, she does have some laxity in terms of flexion, extension, and varusand valgus stress. This is comparable to her contralateral knee. Calf is soft, supple, nontender. Right lower extremity is grossly neurovascularly intact distally Examination left knee demonstrates well-healed surgical incision. No significant effusion or erythema noted. No warmth. She has full painless range of motion exam today. Mild tenderness to palpation along the medial joint line. No lateral joint line tenderness. She does not have pain when stressingthe MCL. However, she does have some laxity in terms of flexion, extension, and varus and valgus stress. Calf is soft, supple, nontender. Left lower extremity is grossly neurovascularly intact distally. Procedure Documentation Test Interpretation: Review of the lumbar spine radiographs reveal degenerative disc disease most prominent L2-L3 with mild retrolisthesis. No sign of acute fracture or dislocation. Assessment / Plan Assessment: Bilateral miknm-uxsucts-ggmc-left knee pain in the setting of a [...] referral for her low back today. We willsee her back in 3 months for repeat [...] Tobias and he agrees with the assessment. 1. Pain of bilateral knee regions M25.561: Pain in right knee 2. Lumbar radiculopathy M54.16: Radiculopathy, lumbar region * PHYSICAL THERAPIST REFERRAL - Schedule Within: provider's discretion Note to Provider: Core strengthening and lumbar stabilization exercises Evaluate & Treat: X Return to Office * TRES TOBIAS MD for Established Patient at [facility] on 05/13/2024 at 11:00 AM Encounter Sign-Off Encounter signed-off by ISRAEL MCKEON, 01/29/2024. documented in this encounter Plan of Treatment Not on file documented as of this encounter Visit Diagnoses Not on filedocumented in this encounter Care Teams Reliability Technologist Relationship Specialty Start Date End Date Rosetta Mccall PCP - General 11/14/18 documented as of this encounter
--- OUTSIDE RECORDS SUMMARY | 2025-11-03 09:08 | XMS_ITS | Encounter Summary ---
Author Organization [facility]ail[facility] Address [address] [place] [address] Care Team Providers Care Project Coordinator Rn Name Role Phone Rosetta Mccall Primary Care Provider [phone] Encounter Details Date Type Department Care Team (Late st Contact Info) Description 05/27/2024 Physician Obstetrician Only Encounter Independent Practices [facility] Tres Tobias MD [address] [place] [address] Social History Tobacco Use Types Packs/Day Years [...] Progress Notes * Tres Tobias MD - 05/27/2024 10:40 AM EDT Patient Name : POORNIMA MANN (69yo, F) ID# [id number] Appt. Date/Time : 05/27/2024 11:00AM : 1955 Service Dept. : [facility] Provider : TRES TOBIAS MD Insurance Med Primary[place] Insurance # : [id number] PCP : ROSETTA MCCALL MD Referring Provider Name : ROSETTA MCCALL MD Employer Name : [employer] Med Secondary: [facility] (MEDICARE SUPPLEMENT) Insurance # : [id number] Policy/Group # : [id number] Employer Name : [employer] Prescription: EXPRESS SCRIPTS - Member is eligible. details Chief Complaint SMN Knee Problem Patient's Care Team Primary Care Provider (Primary Insurance): ROSETTA MCCALL MD: [address] [place] [phone], , Referring Provider (Primary Insurance): ROSETTA MCCALL MD: [address] [place] [phone], , Patient's Pharmacies [id number] [address] [place] [address], , Vitals None recorded. Allergies CAT DANDER DOG DANDER HOUSE DUST MITE Medications Name: albuterol sulfate HFA 90 mcg/actuation aerosol inhaler INHALE 2 PUFFS BY MOUTH EVERY 6 HOURS IF NEEDED. Date: 03/21/23 filled Source: rene Name: Arnuity Ellipta 100 mcg/actuation powder for inhalation TAKE 1 PUFF BY MOUTH EVERY 24 HOURS,X30 DAYS, RINSE MOUTH AND THROAT AFTER USE Date: 04/25/24 filled Source: rene Name: benzonatate 200 mg capsule TAKE 1 CAPSULE BY MOUTH THREE TIMES A DAY NEEDED FOR COUGH Date: 02/03/23 filled Source: rene Name: carvediloL 25 mg tablet TAKE 1 TABLET BY MOUTH TWICE DAILY WITH MEALS Date: 05/22/24 filled Source: rene Name: DILT-XR 240 mg capsule, extended release TAKE 1 CAPSULE BY MOUTH EVERY DAY Date: 01/12/23 filled Source: normariletty Name: Eliquis 5 mg tablet Date: 04/15/24 filled Source: rene Name: estradioL 0.01% (0.1 mg/gram) vaginal cream APPLY 1 G VAGINALLY 3 TIMES A WEEK FOR 30 DAYS Date: 09/28/23 filled Source: rene Name: fluticasone propionate 50 mcg/actuation nasal spray,suspension SPRAY 1 SPRAY INTO EACH NOSTRIL TWICE A DAY Date: 03/23/24 filled Source: [facility]s Name: furosemide 20 mg tablet TAKE 1 TABLET BY MOUTH DAILY NEEDED FOR SWELLING Date: 05/21/24 filled Source: [facility] Name: Mounjaro 2.5 mg/0.5 mL subcutaneous pen injector INJECT 1 PREFILLED PEN SUBCUTANEOUSLY ONCE AWEEK DIRECTED Date: 03/21/24 filled Source: surescripts Name: Mounjaro 5 mg/0.5 mL subcutaneous pen injector DIRECTED SUBCUTANEOUS 30 DAYS Date: 05/07/24 filled Source: [facility] Name: rosuvastatin 10 mg tablet TAKE 1 TABLET BY MOUTH EVERY DAY FOR 90 DAYS Date: 04/07/24 filled Source: [facility]cripts Name: Xarelto 20 mg tablet TAKE 1 TABLET BY MOUTH EVERY DAY Date: 11/26/23 filled Source: rene Problems Problems not reviewed (last reviewed 01/29/2024) * Patellofemoral osteoarthritis - Onset: 08/07/2017 - [...] Previous Surgeries: Bilateral multi ligament surgeries by [facility] Left total knee arthroplasty [address] [...] her lateral thighs. Overall multifactorial pain picture. ROS ROS as noted in the HPI [...] lower extremity is grossly neurovascularly intact distally. Assessment / Plan Assessment: Bilateral kjzeo-bnzixbh-tfxb-left knee pain in the setting of a [...] No fevers or chills. No calf tenderness. Nostart-up pain. In the past we discussed possible referral to pain management. I do think that this would be helpful for her to deal with both her radicular type pain as well as potentially consider agenicular nerve block for the knee. She does [...] was happy with the plan going forward 1. Pain of bilateral knee regions M25.561: Pain in right knee 2. Lumbar radiculopathy M54.16: Radiculopathy, lumbar region * PHYSICAL THERAPIST REFERRAL - Schedule Within: provider's discretion Note to Provider: Core strengthening and lumbar stabilization exercises Return to Office * RIVER GALVEZ MD for Est Patient / New Condition at [facility] on 06/12/2024 at 02:00 PM Encounter Sign-Off Encounter signed-off by TRES TOBIAS MD, 05/27/2024. documented in this encounter Plan of Treatment Not on file documented as of this encounter Visit Diagnoses Not on filedocumented in this encounter Care Teams Project Coordinator Rn Relationship Specialty Start Date End Date Rene Rosetta Cisneros PCP - General 11/14/18 documented as of this encounter
--- OUTSIDE RECORDS SUMMARY | 2025-11-03 09:08 | XMS_ITS | Encounter Summary ---
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 Date/Time : 11/06/2023 01:40PM : 1955 Service Dept. : ED[facility] Reid Provider : PREETHI TOBIAS MD Insurance Med Primary[place] Insurance # : [id number] PCP : JARED MCCALL MD Referring Provider Name : JARED MCCALL MD Employer Name : [employer] Secondary: [facility] (MEDICARE SUPPLEMENT) Insurance # : [id number] Policy/Group # : [id number] Employer Name : [employer] Prescription: [facility] - Member is eligible. details Chief Complaint Left SMN Knee Problem Patient's Care Team Primary Care Provider (Primary Insurance): JARED MCCALL MD: [address] [place] [id number], , Referring Provider (Primary Insurance): JARED MCCALL MD: [address] [place] [address], , Patient's Pharmacies [id number] ([facility]): [address] [place] [address], , Vitals None recorded. Allergies None recorded. Medications Name: albuterol sulfate HFA 90 mcg/actuation aerosol inhaler INHALE 2 PUFFS BY MOUTH EVERY 6 HOURS IF NEEDED. Date: 03/21/23 filled Source: [facility] Name: amiodarone 400 mg tablet TAKE 1 TABLET TWICE A DAY FOR 2 WEEKS THEN 1 TABLET A DAY THERE AFTER Date: 10/28/22 filled Source: [facility] Name: amoxicillin 500 mg capsule Take 4 capsule(s) 1 hour before procedure by oral route. Date: 10/05/20 prescribed Source: ISRAEL MATHIS Name: Arnuity Ellipta 100 mcg/actuation powder for inhalation TAKE 1 PUFF BY MOUTH EVERY 24 HOURS,X30 DAYS, RINSE MOUTH AND THROAT AFTER USE Date: 10/15/23 filled Source: [facility] Name: azithromycin 250 mg tablet TAKE 2 TABLETS BY MOUTH TODAY, THEN TAKE 1 TABLET DAILY FOR 4 DAYS Date: 02/03/23 filled Source: [facility] Name: benzonatate 200 mg capsule TAKE 1 CAPSULE BY MOUTH THREE TIMES A DAY NEEDED FOR COUGH Date: 02/03/23 filled Source: [facility] Name: carvediloL 25 mg tablet TAKE 1 TABLET BY MOUTH TWICE A DAY WITH MEALS Date: 08/27/23 filled Source: [facility] Name: DILT-XR 240 mg capsule, extended release TAKE 1 CAPSULE BY MOUTH EVERY DAY Date: 01/12/23 filled Source: [facility] Name: erythromycin 5 mg/gram (0.5 %) eye ointment APPLY 1 APPLICATION INTO THE LOWER EYELID OF AFFECTED EYE FOUR TIMES A DAY 10 DAYS Date: 08/20/23 filled Source: [facility] Name: estradioL 0.01% (0.1 mg/gram) vaginal cream APPLY 1 G VAGINALLY 3 TIMES A WEEK FOR 30 DAYS Date: 09/28/23 filled Source: [facility] Name: fluticasone propionate 50 mcg/actuation nasal spray,suspension SPRAY 1 SPRAY INTO EACH NOSTRIL TWICE A DAY Date: 09/22/23 filled Source: [facility] Name: furosemide 20 mg tablet TAKE 1 TABLET BY MOUTH DAILY NEEDED (SWELLING). Date: 08/30/23 filled Source: rene Name: methylPREDNISolone 4 mg tablets in a dose pack TAKE 6 TABLETS ON DAY 1 DIRECTED ON PACKAGEAND DECREASE BY 1 TAB EACH DAY FOR A TOTAL OF 6 DAYS Date: 02/03/23 filled Source: re[facility] Name: neomycin 3.5 mg/g-polymyxin B 10,000 unit/g-dexameth 0.1 % eye oint APPLY TO THE LOWER LEFT EYELID AT BEDTIME FOR ONE WEEK Date: 08/22/23 filled Source: re[facility] Name: polymyxin B sulfate 10,000 unit-trimethoprim 1 mg/mL eye drops INSTILL 1 DROP INTO AFFECTED EYE 4 TIMES A DAY FOR 7 DAYS Date: 04/29/23 filled Source: rene Name: rosuvastatin 10 mg tablet TAKE 1 TABLET BY MOUTH EVERY DAY FOR 90 DAYS Date: 10/15/23 filled Source: rene Name: tiZANidine 2 mg tablet TAKE 1 TABLET BY MOUTH EVERY 6 TO 8 HOURS NEEDED FOR 2 DAYS Date: 11/07/22 filled Source: rene Name: tiZANidine 4 mg tablet TAKE 1 TABLET BY MOUTH EVERY EIGHT TO TWELVE HOURS NEEDED Date: 11/08/22 filled Source: rene Name: Xarelto 20 mg tablet TAKE 1 TABLET BY MOUTH EVERY DAY Date: 07/26/23 filled Source: re[facility] Problems Reviewed Problems * Patellofemoral osteoarthritis - [...] history of complications with anesthesia Social History She is single lives alone she is [...] a multiple ligament reconstruct) Past Medical History Notes: Uterine cancer, Hypertension, EKG with left bundle branch block a negative cardiac workup, Sleep apnea uses CPAP, No history of deep vein thrombosis or PE, No history of complications with anesthesia Hypertension Asthma arthritis Screening None recorded. HPI Diagnosis: Bilateral knee pain Previous Surgeries: Bilateral multi ligament surgeries by [facility] Left total knee arthroplasty [address] Rand, spacer replacement 2018 Right total knee arthroplasty [address] Rand History of Present Illness: Patient is a pleasant 68-year-old female presenting today of her evaluation of her bilateral knees.Patient has had several surgeries on her bilateral [...] of her knee. She denies any fevers, chills,or other constitutional symptoms today. She presents today for further orthopedic evaluation. ROS ROS as noted in the HPI [...] is grossly neurovascularly intact distally. Procedure Documentation SMN Xray Knee (4): Weightbearing AP, Fraire, lateral and merchant radiographs of the right knee were all obtained in the office today. These demonstrate surgical hardware in appropriate position without evidence of loosening or failure. No evidence of acute fracture. Assessment / Plan Assessment: Bilateral lsoyv-kvahque-ynqp-left knee pain in the setting of a patient with bilateral total knee arthroplasties Plan: Clinical and radiographic findings reviewed with the patient today in our office. She has a historyof bilateral total knee arthroplasties. We discussed that radiographically her hardware appears to be in appropriate position without evidence of loosening or failure. There was no evidence of an acute fracture seen on Xray. On exam today, she does have some laxity noted that is comparable bilaterally. At this time, I have recommended a course of formal physical therapy. A prescription was placedfor this today. We did also discuss the role of weight loss. Should these measures fail, we did discuss possibility of a genicular nerve block in the future. We will plan to have the patient follow up in 3 months for re-evaluation, or sooner as needed. Patient agrees with and is satisfied with thisplan. Patient had the opportunity to ask questions, all of which were answered to their satisfaction. 1. Pain of bilateral knee regions M25.561: Pain in right knee * PHYSICAL THERAPIST REFERRAL - Schedule Within: provider's discretion Note to Provider: B/l knee pain (R>L). History of b/l TKA- R in 2019, L in 2010. Please work on quadriceps, hamstring, glute, abdominal strengthening Evaluate & Treat: X Visits per Week: 2-3 Side: BILATERAL Return to Office * PREETHI TOBIAS MD for Established Patient at [facility] on 01/29/2024 at 01:00 PM Encounter Sign-Off Encounter signed-off by ISRAEL ORTIZ, 11/06/2023. documented in this encounter Plan of Treatment Not on file documented as of this encounter Visit Diagnoses Not on filedocumented in this encounter Care Teams Outreach Consultant Relationship Specialty Start Date End Date Rene Jared Blayne PCP - General 11/14/18 documented as of this encounter
--- OUTSIDE RECORDS SUMMARY | 2025-11-03 09:08 | XMS_ITS | Encounter Summary ---
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 Status post right total knee arthroplasty. Relevant Surgeries: Right total knee arthroplasty 12/11/2018. Left knee polyethylene up sizing 12/11/2018. Left total knee arthroplasty 08/24/2010. Disposition: Follow-up in 4-6 weeks. History of Present Illness: Poornima Waggoner following up on both knees. She states overall she is doing exceptionally well. She is starting outpatient physical therapy. She is taking oxycodone for pain management. She states her left knee does feel very stable. Physical Exam: Ambulating with a cane. Well-healed incisions bilaterally. [place] removed and benzoin and Steri-Strips were applied. Left knee range of motion is 0-120. Stable valgus and varus exam throughout range of motion. No hyperextension. No calf pain and grossly neurovascular intact distally. Right knee range of motion is 0-105. Stable valgus and varus exam throughout. No calf pain and grossly neurovascular intact distally. Imaging/Studies: Radiographs today include three views of the right knee. AP standing, standing lateral and Merchant view. On the AP view notes well placed total knee arthroplasties bilaterally. No signs of osteolysis, subsidence or fracture noted. The lateral and Merchant view demonstrate the patella to be tracking centrally and at appropriate height. Assessment: Status post right total knee arthroplasty doing well. Status post left knee polyethylene spacer upsizing. 17 mm poly to a 20 mm poly. Plan: I did review her radiographs with her and gave her a copy of them. I did refill her oxycodoneas she does live in [facility] at this point. She will refill this when she is due. See her in 4-6 weeks for motion check. Patient comfortable the plan and questions answered. This note was generated using voice recognition. Please excuse any licensed mental health counselor errors which may have been overlooked during review. CC: Primary Care Physician documented in this encounter Plan of Treatment Not on file documented as of this encounter Visit Diagnoses Not on filedocumented in this encounter Care Teams Shank Taper Relationship Specialty Start Date End Date Jared López PCP - General 11/14/18 documented as of this encounter
--- OUTSIDE RECORDS SUMMARY | 2025-11-03 09:08 | XMS_ITS | Encounter Summary ---
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 Relevant Surgeries: Right total knee arthroplasty with left knee polyethylene up sizing 12/11/2018 Disposition: Follow-up in 6 months with repeat x-rays bilateral knees History of Present Illness: Poornima Waggoner returns today for followup of her right knee. She was doing well until earlier this month when she noticed that she started having increased medial knee pain. She feels instability off and on which is worse at the end of the day. No new injuries. He she states that her left knee is doing very well Physical Exam: Right knee she has well-healed incisions. She has full extension flexion to 130?. Point tenderness over her proximal MCL, no varus or valgus instability. Her patella is tracking centrally. Her distal strength and sensation intact, calf is soft and nontender Imaging/Studies: Radiographs today include three views of both knees. AP standing, standing lateraland Merchant view. She does have retained hardware to both knees. She is well placed total knee arthroplasties bilaterally. Stemmed tibial components. No signs of osteolysis, subsidence or fracture. The lateral and Merchant view demonstrates the patella to be tracking centrally at appropriate height. Assessment: Status post right total knee arthroplasty with medial hardware irritation from her old MCL surgery Plan: Malu will continue with activities as tolerated. We will see her back as scheduled, if she continues to have pain medially will consider removal of her screw, Dr. Rand was in to re-evaluate examined patient agrees with the assessment and plan This note was generated using voice recognition. Please excuse any street and building decorator errors which may have been overlooked during review. CC: Primary Care Physician * Tess Rand III, MD - 04/08/2019 7:40 AM EDT Visit Type: Follow-up Diagnosis: Status post right total knee arthroplasty and poly exchange left knee. Relevant Surgeries: Right total knee arthroplasty with left knee polyethylene up sizing 12/11/2018 Disposition: Follow-up in 6 months with repeat x-rays bilateral knees History of Present Illness: Poornima Waggoner following up on both knees. She states overall she is doing quite well. She denies any instability or pain. She notes some right knee inflammation. He has been taking Aleve for this. She has been trying to increase her activity. She has been doing rolling as well as icing. She is unable to return to work until May 12 she feels. Physical Exam: Both knees demonstrate well-healed incisions anteriorly. Range of motion bilaterallyis 0-135. Stable collateral exam throughout range of motion. No calf pain and grossly neurovascularintact distally. Assessment: Status post right total knee arthroplasty and left knee polyethylene up sizing, doing well Plan: At this point she will continue working on her strengthening and range of motion. We did giveher a work note to return to work on May 12. We will see her back in 6 months for repeat evaluation radiographs of both knees. Patient comfortable with the plan and questions answered. Patient seenand examined by Dr. Rand who agrees with the assessment and plan. This note was generated using voice recognition. Please excuse any street and building decorator errors which may have been overlooked during review. CC: Primary Care Physician documented in this encounter Plan of Treatment Not on file documented as of this encounter Visit Diagnoses Not on filedocumented in this encounter Care Teams Manager Of Transportation Relationship Specialty Start Date End Date Jared López PCP - General 11/14/18 documented as of this encounter
--- OUTSIDE RECORDS SUMMARY | 2025-11-03 09:08 | XMS_ITS | Encounter Summary ---
Author Organization Naila Flores [facility] Address [address] [place] [address] Care Team Providers Care Vulcanizer Rubber Plate Name Role Phone Jared López Primary Care Provider [phone] Encounter Details Date Type Department Care Team (Late st Contact Info) Description 11/27/2018 Prep for Procedure [facility] [address] [place] [address] Malgorzata Fajardo PA [address] [place] [address] Social History Tobacco Use Types Packs/Day Years [...] on file documented as of this encounter Plan of Treatment Not on file documented as of this encounter Visit Diagnoses Not on filedocumented in this encounter Care Teams Vulcanizer Rubber Plate Relationship Specialty Start Date End Date Jared López PCP - General 11/14/18 documented as of this encounter
--- OUTSIDE RECORDS SUMMARY | 2025-11-03 09:08 | XMS_ITS | Encounter Summary ---
Author Organization Naila Flores [facility] Address [address] [place] [address] Care Team Providers Care Chef Name Role Phone Jared López Primary Care Provider [phone] Encounter Details Date Type Department Care Team (Late st Contact Info) Description 08/03/2020 Manager Imaging Only Encounter Independent Pract[facility] Tess Rand III, MD [facility] [place] [address] Social History Tobacco Use Types [...] Notes * Tess Rand III, MD - 08/03/2020 9:37 AM EDT Visit Type: Follow-up Diagnosis: Bilateral knee pain Relevant Surgeries: Status post bilateral knee replacements a multiple ligament reconstruct Disposition: Scheduled for physical therapy follow-up in 3 month History of Present Illness: Patient recently 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 In the meantime she also fell on her right knee. She is status post right total knee replacement. She complains of pain anteromedially as well as on the medial aspect occasionally gets a clicking and popping in the knee. Was concerned that she may have torn a fractured something. This occurred on around 06/09/2020. No history forfevers or chills. No breaks in the skin. She currently utilizes crutch in her right arm and a fracture boot for her left leg Past Medical History: Hypertension Asthma arthritis Past Surgical History: Status post left total knee replacement status post multi ligament repair status post hysterectomy status post herniorrhaphy Allergies: No known Medications: Lisinopril aspirin vitamin Family History: Cancer Social History: Social ETOH negative cigarettes Review of Systems: Swollen ankles dry eyes joint pain joint problems Physical Exam: Walks with a limp on the left with a fracture boot with a crutch under her right arm. Her right knee demonstrates well-healed scars no significant effusion I think the knee is stable to varus and valgus in both flexion and extension. No significant pistoning is noted flexion. She does have some tenderness with medial aspect anteromedial in the area of the pes anserinus bursa. Otherwise patella tracks centrally throughout active passive range of motion equal 0 to about 110? of flexion Imaging/Studies: Weightbearing AP lateral sunrise views demonstrate a well placed well cemented total knee arthroplasty without evidence of lucency loosening or fracture seen. X-rays rendered and Assessment: Contusion right knee possible low-grade sprain MCL right Plan: Physical therapy for now. Resolve her left Achilles rehab. Re-evaluate her in 2-3 months. Copies of her x-rays rendered reviewed. She seemed reassured there was no obvious fracture or displacement of the end This note was generated using voice recognition. Please excuse any data technician errors which may have been overlooked during review. CC: Primary Care Physician documented in this encounter Plan of Treatment Not on file documented as of this encounter Visit Diagnoses Not on filedocumented in this encounter Care Teams Chef Relationship Specialty Start Date End Date Rene Jared Blayne PCP - General 11/14/18 documented as of this encounter
--- OUTSIDE RECORDS SUMMARY | 2025-11-03 09:08 | XMS_ITS | Clinical Summary ---
Author Organization [facility] Address [address] [place] [address] Care Team Providers Care Ham Marker Name Role Phone Jared López Primary Care Provider Allergies Active Allergy Reactions Criticality Noted Date Comments Other Other (See Comments) Low 11/14/2018 Environmental/ sneezing Medications fluticasone (FLONASE) 50 mcg/actuation nasal spray USE 1 SPRAY IN EACH NOSTRIL TWICE A DAY 0 8 Active lisinopril (ZESTRIL) 20 MG tablet Take 20 mg by mouth daily. Active cholecalciferol (VITAMIN D3) 1,000 unit tablet Take 1,000 Units by mouth at bedtime. Active multivitamin (multivitamin) per tablet Take 1 tablet by mouth daily. Active acetaminophen (TYLENOL) 325 MG tablet Take 650 mg by mouth every 6 hours as needed for pain. Active albuterol HFA (VENTOLIN; PROAIR; PROVENTIL) 90 mcg/actuation aerosol inhaler Inhale 1-2 puffs every 4 hours as needed for wheezing or shortness of breath. Active rivaroxaban (XARELTO) 10 mg tablet Take 1 tablet (10 mg total) by mouth daily. 5 tablet 9 Active celecoxib (CeleBREX) 200 MG capsule Take 1 capsule (200 mg total) by mouth every morning & every evening. 60 capsule 1 9 Active docusate sodium (COLACE) 100 MG capsule Take 1 capsule (100 mg total) by mouth 2 times a day as needed for constipation. 40 capsule 9 Active HYDROmorphone (DILAUDID) 2 MG tablet Take 1-2 tablets (2-4 mg total) by mouth every 4 hours as needed for pain. 60 tablet 9 Active aspirin 81 MG EC tablet Take 1 tablet (81 mg total) by mouth every morning & every evening. Start after xarelto d/c 60 tablet 9 Active Active Problems Problem Noted Date Diagnosed Date Status post bilateral knee replacements 12/11/19 19 Arthritis of right knee 12/09/2018 Family History Medical History Relation Comments Heart attack Brother Pancreatic cancer Father Diabetes Mother Hypertension Mother Relation Status Comments Brother Alive Father (Age 61) Mother Social History Tobacco Use Types Packs/Day Years Used Date Smoking Tobacco: Never Smokeless Tobacco: Never Alcohol Use Standard Drinks/Week Comments Yes 4 (1 standard drink = 0.6 oz pur e alcohol) Comments No Sex and Gender Information Value Date Recorded Sex Assigned at Not on file Legal Sex Female 10:26 AM EDT Gender Identity Not on file Sexual Orientation Not on file Last Filed Vital Signs Vital Sign Reading Time Taken Comments Blood Pressure 102/67 12/13/2018 10:57 AM EST Pulse 76 12/13/2018 10:57 AM EST Temperature 36.6 C (97.9 F) 12/13/2018 10:57 AM EST Respiratory Rate 16 12/13/2018 10:57 AM EST Oxygen Saturation 98% 12/13/2018 10:57 AM EST Inhaled Oxygen Concentration - - Weight 128 kg (283 lb) 12/11/2018 10:00 PM EST Height 160 cm (5' 3 ) 12/11/2018 10:00 PM EST Body Mass Index 50.13 12/11/2018 10:00 PM EST Plan of Treatment Health Maintenance Due Date Last Done Comments Blood Pressure 1957 Lipid Panel 1957 Depression Screening 1969 Hepatitis C Screening 1975 DTaP,Tdap,and Td Vaccines (1 - Tdap) 1976 Breast Cancer Screening [address] Colonography 2002 Colonoscopy 2002 Colorectal Cancer Screening 2002 FIT 2002 FOBT 2002 Multitarget Stool DNA (Cologuard) 2002 Sigmoidoscopy 2002 Pneumococcal Vaccine: 50+ Ye ars (1 of 1 - PCV) 2007 Zoster Vaccine (1 of 2) 2007 Osteoporosis Screening 2022 COVID-19 Vaccine (1 - 2024-2 6 season) 2025 Influenza Vaccine (#1) 2025 Meningococcal B Vaccines Aged Out No longer eligible based on patient's age to complete this topic Meningococcal Vaccines Aged Out No lo nger eligible based on patient's age to complete this topic Medical Devices Implanted Type Area Paediatrician Device Identifier Shelf Expiration Date Model / Serial / Lot Femur Std Right [id number] ([id number]) - Sxxx Implanted:Qty: 1 on 12/11/2018 by Tess Rand III, MD at [facility] Hip Joint Right: Knee [employer] 08/11/2028 [id number] 2 / XXX / [id number] Stem Extension 14mm +30 Length ([id number]) - Sxxx Implanted:Qty: 1 on 12/11/2018 by Tess Rand III, MD at [facility] Knee Joint Right: Knee [employer] 09/11/2028 [id number] / XXX / [id number] Tibia Natural [id number] ([id number]) - Sxxx Implanted:Qty: 1 on 12/11/2018 by Tess Rand III, MD at [facility] Knee Joint Right: Knee [employer] 08/11/2028 [id number] 2 / XXX / [id number] Patella Poly [id number] ([id number]) - Sxxx Implanted:Qty: 1 on 12/11/2018 by Tess Rand III, MD at [facility] Knee Joint Right: Knee [employer] 02/09/2023 [id number] 2 / XXX / [id number] Articular Surface ([id number]) - Sxxx Implanted:Qty: 1 on 12/11/2018 by Tess Rand III, MD at [facility] Left: Knee [employer] 03/11/2020 [id number] 0 / XXX / [id number] Refobacin Bone Cement R W/Gentamicin ([id number]) - Sxxx Implanted:Qty: 2 on 12/11/2018 by Tess Rand III, MD at [facility] Right: Knee [employer] 12/12/2020 [id number] / XXX / [id number] Articular Surface 16mm Right ([id number]) - Sxxx Implanted:Qty: 1 on 12/11/2018 by Tess Rand III, MD at [facility] Right: Knee [employer] 02/09/2021 [id number] 6 / XXX / [id number] Explanted Type Area Paediatrician Device Identifier Shelf Expiration Date Model / Serial / Lot Screw Richa 6.5x30 ([id number]) - Sxxx Explanted:Qty: 1 on 12/11/2018 by Tess Rand III, MD at [facility] Screw Right: Knee [employer] 11/11/2028 [id number] / XXX / [id number] Articular Surface Implant Explanted:Qty: 1 on 12/11/2018 by Tess Rand III, MD at [facility] Left: Knee [employer] 12/11/2019 XXX / / XXX Screw And Washer Explanted:Qty: 2 on 12/11/2018 at [facility] Right: Knee [employer] 12/11/2019 XXX / / XXX Description:Two screws and w neal removed from prior surgery on right knee. Implant details unknown Insurance [facility] Advance Directives Documents on File Type Date Recorded Patient Repair Service Clerk Expl anation Health Care Proxy 11/14/2018 12:40 PM * Full Code (Latest Code Status on File) Date Activated Date Inactivated Comments 12/11/2018 2:05 PM Healthcare Agents on File Name Relationship Healthcare Agent Relationshi p Communication Pat Mary Friend Health Care Agent Jagruti Tariq Health Care Agent - Alternat e Care Teams Ham Marker Relationship Specialty Start Date End Date Jared López PCP - General 11/14/18
--- OUTSIDE RECORDS SUMMARY | 2025-11-03 09:09 | XMS_ITS | Encounter Summary ---
Author Organization [facility] Address [address] [place] [address] Care Team Providers Care Sulfuric Acid Plant Supervisor Name Role Phone Jared López Primary Care Provider [phone] Encounter Details Date Type Department Care Team (Late st Contact Info) Description 10/07/2019 Integration Solution Architect Only Encounter Independent Practices [place] [facility] Tess Rand III, MD [facility] [place] [address] Social History Tobacco Use Types [...] Notes * Tess Rand III, MD - 10/07/2019 11:09 AM EST Visit Type: Follow-up Diagnosis: Status post bilateral total knee arthroplasties with painful retained hardware to the right knee Relevant Surgeries: Left total knee arthroplasty 08/24/2010. Right total knee arthroplasty and left poly exchange 12/11/2018. Multiple previous bilateral knee operations Disposition: To schedule hardware removal right medial femur History of Present Illness: Poornima Waggoner following up on her knees. Overall she is doing quite well. Biggest issue at this point is some catching she feels to the medial aspect of the right knee. This is in the area of her MCL screw. She denies any instability. The poly up size did help her left knee. She she still utilizes a handicap placard and a cane occasionally. Physical Exam: No pain with internal or external rotation of her hips. Well- healed incision to the anterior aspect of the knee. Range of motion is 0-120. Stable collateral exam. Right knee notes tenderness to palpation over the the medial epicondyle of the femur. No calf pain and grossly neurovascular intact distally. Imaging/Studies: Radiographs today include three views of both knees. AP standing, standing lateraland Merchant view. AP view notes well-healed bilateral total knee arthroplasties. No signs of osteolysis, subsidence or fracture. The right knee demonstrates a medial screw and washer in the femur. It is somewhat proud. This is from previous MCL repair. Left knee demonstrates multiple endo buttons from previous surgeries. The lateral and Merchant view notes the patella to be tracking centrally atappropriate height. Assessment: Status post bilateral knee surgeries as above. Right knee painful retained hardware Plan: We did review her radiographs with her and gave her a copy of them. We sent her in amoxicillin for dental prophylaxis. I filled out her handicap placard paperwork. We will schedule hardware removal out of the right distal medial femur. Patient comfortable with the plan and questions answered.Patient seen and examined by Dr. Rand who agrees with the assessment and plan. This note was generated using voice recognition. Please excuse any military administrative technician errors which may have been overlooked during review. CC: Primary Care Physician documented in this encounter Plan of Treatment Not on file documented as of this encounter Visit Diagnoses Not on filedocumented in this encounter Care Teams Sulfuric Acid Plant Supervisor Relationship Specialty Start Date End Date Jared López PCP - General 11/14/18 documented as of this encounter
--- OUTSIDE RECORDS SUMMARY | 2025-11-03 09:09 | XMS_ITS | Patient Health Record ---
Author Organization [facility] Address [address] [place] [address] Care Team Providers Care Brim Pouncer Machine Operator Name Role Phone ROSETTA MCCALL Primary Care Provider [place], NURSING Unavailable [phone] JAY GARCIA Unavailable [phone] SUKHI BOCANEGRA Unavailable [phone] Allergies Allergen (clinical drug ingredient) Drug/Non Drug Allergy documented on EMR Reaction Allergy Type Onset Date Status CATS, TREES (uncoded) Unknown Allergy Active Reason For Referral Reason 08/25/25 w appt Refe rral to ear nose [facility] acute right-sided hearing loss Diagnosis 1 Unspecified hearing loss (H91.90) Referral Organization [facility] Aleida borrero Referring Provider First Name ROSETTA Referring Provider Last Name STEFANY Referring Provider Speciality Internal edicine Referred Organization [facility] (1) Referred Address [address] [place], [place],[address], Referred Provider Specialty Otology, Lar yngology, Rhinology General Notes Anna HUNT Admin 12:03:42 PM > faxed medical referral, note and most recent labs to [facility] at [phone] requesting an URGENT visit please>no referral required Referral Priority Urgent Reason [facility] hearing loss Diagnosis 1 Hearing loss, unspec ified hearing loss type, unspecified laterality (H91.90) [facility] Referring Provider First Name ROSETTA Referring Provider [...] Category Social Info Options Details General 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: no Past year's travels: [place] 10/13 025 alcohol use: yes twice a week drug use: No Hobbies/Exercise habits: boating , camping, gardening, exercise 3-4 times a week Coffee/Tea/Soda: yes Coffee, 1, tatiana y Marital Status single smokers in household no Section Notes: pt never smoke Problems Problem Type SNOMED Code ICD Code Onset Dates Problem Status W/U Status Risk Notes Problem Gastro-esophageal reflux disease without esophagitis (496078506) Gastro-esophageal reflux disease without esophagitis (K21.9) Active confirmed Problem Essential hypertension (56039747) Essential (primary) hypertension (I10) Active confirmed Problem Type II diabetes mellitus without complication (253984982) Type 2 diabetes mellitus without complications (E11.9) Active confirmed Problem Sleep apnea (49485590) Sleep apnea (G47.30) Active confirmed Problem Disorder of lipoprotein storage and metabolism (disorder) (109829244) Disorder of lipoprotein metabolism, unspecified (E78.9) Active confirmed Problem Asthma (538712217) Other asthma (J45.998) Active confirmed Problem Atrial fibrillation (05845898) Atrial fibrillation, unspecified type (I48.91) Active confirmed Problem Age-related osteoporosis (130186711) Osteoporosis, unspecified osteoporosis type, unspecified pathological fracture presence (M81.0) Active confirmed Problem Hearing loss (39721327) Unspecified hearing loss (H91.90) Active confirmed Problem Aortic valve disorder (8306499) Aortic valve stenosis, etiology of cardiac valve disease unspecified (I35.0) Active confirmed Problem Osteoarthritis of right knee joint (458077268945549) Osteoarthritis of right knee, unspecified osteoarthritis type (M17.11) Active confirmed Vital Signs Blood pressure diastolic 81 mm Hg 10/21/2025 Height 64 in 10/21/2025 Blood pressure systolic 131 mm Hg 10/21/2025 Weight 294 lbs 10/21/2025 BMI 50.46 kg/m2 10/21/2025 Encounters Encounter Location Date Provider Diagnosis [address] [address] 09/08/2025 ROSETTA MCCALL Essential (primary) hypertension I10 [...] unspecified hearing loss type, unspecified laterality H91.90 [facility] [address] [place] [address] 08/24/2025 ROSETTA MCCALL Unspecified hearing loss H91.90 ; Essential (primary) hypertension I10 ; Disorder of lipoprotein metabolism, unspecified E78.9 ; Type 2 diabetes mellitus without complications E11.9 ; Gastro-esophageal reflux disease without esophagitis K21.9 ; Atrial fibrillation, unspecified type I48.91 and Other asthma J45.998 [address] [place] [address] 02/26/2025 ROSETTA MCCALL Essential (primary) hypertension I10 [...] Screening for STD (sexually transmitted disease) Z11.3 [place] [phone] 09/08/2025 NURSING [place] Encounter for immunization Z23 [address] [address] 10/21/2025 JAY GARCIA URI with cough and congestion J06.9 and Type A influenza J10.1 [place] [phone] 05/08/2025 SUKHI SAHRA Pain of left calf M79.662 and Essential (primary) hypertension I10 [address] [address] 04/21/2025 ROSETTA MCCALL [address] [address] 03/25/[address] [address] 03/24/[address] [address] 03/23/[address] [address] 03/20/[address] [address] 03/20/2025 ROSETTA [address] [address] [place] [address] 03/05/2025 ROSETTA MCCALL [facility] [address] [place] [address] 02/27/2025 ROSETTA MCCALL [facility] [address] [place] [address] 02/27/2025 ROSETTA MCCALL [facility] [address] [place] [address] 02/27/2025 ROSETTA MCCALL [facility] [address] [place] [address] 01/26/2025 ROSETTA MCCALL [facility] [address] [place] [address] 01/26/2025 ROSETTA MCCALL [facility] [address] [place] [address] 10/06/2025 ROSETTA MCCALL [facility] [address] [place] [address] 10/05/2025 ROSETTA [facility] [address] [place] [address] 09/09/2025 ROSETTA MCCALL Type 2 diabetes mellitus without complications E11.9 [facility] [address] [place] [address] 08/28/2025 ROSETTA [facility] [address] [place] [address] 08/26/2025 ROSETTA MCCALL Hearing loss, unspecified hearing loss type, unspecified laterality H91.90 [facility] [address] [place] [address] 08/25/2025 ROSETTA MCCALL [facility] [address] [place] [address] 08/24/2025 ROSETTA MCCALL [facility] [address] [place] [address] 06/29/2025 ROSETTA MCCALL [facility] [address] [place] [address] 03/24/2025 ROSETTA MCCALL [facility] [address] [place] [address] 02/27/2025 ROSETTA MCCALL [facility] [address] [place] [address] 10/21/2025 ROSETTA MCCALL [facility] [address] [place] [address] 09/23/2025 ROSETTA MCCALL [facility] [address] [place] [address] 08/24/2025 ROSETTA MCCALL [facility] [address] [place] [address] 08/23/2025 ROSETTA MCCALL [facility] [address] [place] [address] 07/22/2025 ROSETTA MCCALL [facility] [address] [place] [address] 06/19/2025 SUKHI BOCANEGRA [facility] [address] [place] [address] 05/07/2025 ROSETTA MCCALL [facility] [address] [place] [address], [place] [address] 04/21/2025 ROSETTA MCCALL Assessments Encounter Date Diagnosis (ICD Code) Assessment Notes Treatment Notes Treatment Clinical Notes Section Notes 08/26/2025 Hearing loss, unspecified hearing loss type, unspecified laterality (ICD-10 - H91.90) 09/08/2025 Encounter for immunization (ICD-10 - Z23) HD Influenza vaccine administered. Patient counseled and VIS sheet given. 10/21/2025 URI with cough and congestion (ICD-10 - J06.9) Oseltamavir 75 mg 1 capsule twice a day for 5 days. Medrol Dosepak as directed. Plenty of liquids. Diabetic Tussin DM for cough as needed. Saline nasal spray 0.9% 2 sprays each nostril 4-6 times a day. [place] pot 1-2 times a day as tolerated. [...] See URI with cough and congestion plan. 09/09/2025 Type 2 diabetes mellitus without complications (ICD-10 - E11.9) 09/08/2025 Essential (primary) hypertension (ICD-10 - I10) [...] goals and 100 LDL less than 100 08/24/2025 Essential (primary) hypertension (ICD-10 - I10) [...] less than 100 follow-up in 6 months 02/26/2025 Type 2 diabetes mellitus without complications (ICD-10 - E11.9) Stable. Check A1c no polyuria polydipsia no ophthalmologic or neurologic symptoms goal A1c less than 7.0 optimally ophthalmology q. year baby aspirin 08/24/2025 Disorder of lipoprotein metabolism, unspecified (ICD-10 - E78.9) Stable recheck every 6 months diet exercise weight loss recommended 09/08/2025 Type 2 diabetes mellitus without complications (ICD-10 - E11.9) Patient with prediabetes. Follow-up A1c every 3 to 4 months ophthalmology q. year diet exercise weight maintenance hopefully will be getting GLP-1 for weight and prediabetes 09/08/2025 Gastro-esophagea l reflux disease without esophagitis [...] this summer follow-up cardiology every 6 months 08/24/2025 Gastro-esophagea l reflux disease without esophagitis (ICD-10 - K21.9) Stable dietary recommendations discussed head of bed elevation as needed PPI 09/08/2025 Other asthma (ICD-10 - J45.998) Physical [...] check bone density Rx given to patient 08/24/2025 Atrial fibrillation, unspecified type (ICD-10 - I48.91) Follow-up with [facility] cardiology in normal sinus rhythm at the present time Watchman procedure has been discussed she is thinking about it 02/26/2025 Aortic valve stenosis, etiology of cardiac valve disease unspecified (ICD-10 - I35.0) Mild aortic stenosis by echocardiogram. No CHF no FLEET SERVICE MANAGER symptoms no chest pain follow-up echo 08/24/2025 [...] Future Test Test Name Order Date Hemoglobin [id number] 08/09/2024 CBC, Platelet, w/o Differential-[id number] 08/09/2024 Albumin/Creatinine Ratio,Urine-[id number] Lipid Panel-[id number] 08/09/2024 Hepatic Function Panel [id number] 2023 BMP8+[id number] 08/09/2024 Hemoglobin [id number] 12/10/2025 BMP8+[id number] 12/10/2025 Next Appt Details Provider Name:ROSETTA BRAMBILA, 03/09/2026 02:30:00 PM, [address] [facility], [place], [address], Insurance Providers Payer Name Payer Address Payer Phone Subscriber Number Group Number Insured Name Patient Relationship to Insured Coverage Start Date Coverage End Date MEDICARE [facility] [employer] [address] [place] [address] [phone] [id number] LUPE MANN Self - patient is the insured 2 [employer] MEDICARE SUPPLEMENT [place] [address] [place] [address] [phone] [id number] LUPE MANN Self - patient is the insured 3 Medical (General) History Medical History History ICD Code hyperlipidemia borderline hypertension asthma research spec endometrial cancer status post ANTHONY/BSO 2 001 obesity sleep apnea - uses CPAP. Severe sleep ap heidy hyperglycemia Atrial fibrillation cardiology Dr. Castaneda Aortic stenosis Echo April 2020 treat mil d COPD BERRY GROWER Dr. Morley Mammogram June [address] [...]
--- OUTSIDE RECORDS SUMMARY | 2025-11-03 09:09 | XMS_ITS | Patient Health Record ---
Author Organization [facility] Address [address] [place] [address] Care Team Providers Care Senior Office Support Assistant Sosa Name Role Phone Jared López MD Primary Care Provider Unavail able Black, Zara Unavailable [phone] Allergies No Known Allergies Results Component Value [...] W/U Status Risk Notes Problem Plantar fasciitis (899724988) Plantar fasciitis (M72.2) Active confirmed Problem Interstitial myositis (23687090) Interstitial myositis of right foot (M60.171) Active confirmed Vital Signs Blood pressure diastolic 84 mm Hg 09/09/2025 Height 5ft 3in in 09/09/2025 Blood pressure systolic 135 mm Hg 09/09/2025 Weight 287 lbs 09/09/2025 BMI 50.83 kg/m2 09/09/2025 Encounters Encounter Location Date Provider Diagnosis [facility] [address] 09/09/2025 Zara Black Ingrown nail L60.0 ; Plantar fasciitis M72.2 ; Pain in right foot M79.671 ; Calcaneal spur, right foot M77.31 ; Interstitial myositis of right foot M60.171 ; Bursitis of right foot M77.51 ; Pain in left foot M79.672 ; Other myositis, left ankle and foot M60.872 and Bursitis of left foot M77.52 [facility] [address] [place] [address] 09/03/2025 Zara Tavarez [facility] [address] [address] 09/09/2025 Zara Tavarez Assessments Encounter Date Diagnosis [...] Name:Zara Tavarez , 12/14/2025 10:30:00 AM, [address] [place] [address], [address], Provider Name:Zara Tavarez , 12/31/2025 02:45:00 PM, [address] [place] [address], [phone], Insurance Providers Payer Name Payer Address Payer Phone Subscriber Number Group Number Insured Name Patient Relationship to Insured Coverage Start Date Coverage End Date Medicare National [employer] [address] [place] [address] [id number] Poornima Waggoner Self - patient is the insured [address] [facility] [place] [address] [id number] Edilson Poornima Self - patient is the insured 4 Medical (General) History Medical History History ICD Code asthma Back,Hip,and Knee pain CAD (Cholesterol) Heart disease High Blood Pressure Joint implants/screws Surgical History Surgery Date(Month/Year) knee replacement 12/2009 knee replacement 2019 double hernia 10/2013 hysterectomy 07/2011 achilles ruptured 05/2020 ablation of the heart 10/2022
== END 2025-11-03 08:48 | disposition home or self-care (01) ==
LOC: HO.XRAY 08:47
PROVIDERS: PCP Internal Medicine; Visit Provider Surgery
DX: E66.01 Morbid (severe) obesity due to excess calories (principal); I48.91 Unspecified atrial fibrillation; J45.909 Unspecified asthma, uncomplicated; E78.5 Hyperlipidemia, unspecified; G47.30 Sleep apnea, unspecified; I10 Essential (primary) hypertension
CPT/HCPCS: 71046; 93005

== ENCOUNTER → 2025-11-03 08:52 | Outpatient (BNV) | payer MEDICARE, OTHER, SELFPAY | PROVIDERS: PCP Internal Medicine; Visit Provider Internal Medicine Cardiovascular Disease | DX: I44.7 Left bundle-branch block, unspecified (principal) | CPT/HCPCS: 93010 ==

== ENCOUNTER → 2025-11-03 09:08 | Outpatient (BNV) | payer MEDICARE, OTHER, SELFPAY | PROVIDERS: PCP Internal Medicine; Visit Provider Radiology Diagnostic Radiology | DX: E66.01 Morbid (severe) obesity due to excess calories (principal); Z68.43 Body mass index [BMI] 50.0-59.9, adult | CPT/HCPCS: 71046 ==